=== PATIENT | male | born 1950 | race African-American/Black ===

== ENCOUNTER 2016-12-22 00:02 | Emergency (ER) | payer OTHER ==
[2016-12-22 00:12] VITALS: BP 150/100; PULSE 83; TEMP 98.1; BMI 34.4
[2016-12-22 01:57] LABS: BASOPHIL 1.2 % (0-2.0); EOSINOPHIL 5.6 % (0-4.5); MCH 30.6 pg (25.7-33.7); MCHC 34.5 g/dl (32.0-35.9); MEAN CELL VOLUME 88.7 fl (80-96); MEAN PLT VOLUME 9.8 fl (7.5-11.1); NEUTROPHILS 52.9 % (42.8-82.8); PLATELET COUNT 231 K/MM3 (134-434); RDW 13.5 % (11.9-15.9); WHITE BLOOD COUNT 5.6 K/mm3 (4.0-10.0)
[2016-12-22 02:17] LABS: ALBUMIN 3.5 g/dl (3.4-5.0); BILIRUBIN,TOTAL 0.6 mg/dL (0.2-1.0); CALCIUM 8.7 mg/dL (8.5-10.1); CREATININE 1.4 mg/dL (0.7-1.3); TOT PROT 7.2 g/dl (6.4-8.2)
--- NOTE | 2016-12-22 02:17 | PDOC ---
History of Present Illness - General History Source: Patient, Spouse, Old Records Exam Limitations: No Limitations <Leanna Al - Last Filed: 12/22/16 02:37> <Jasiel De La Paz - Last Filed: 12/22/16 03:12> - General Chief Complaint: Congestive Heart Failure Stated Complaint: DIFFICULTY BREATHING Time Seen by Provider: 12/22/16 00:32 - History of Present Illness Initial Comments: 12/22/16 02:25 The patient is a 66 year old male, with a significant past medical history of HTN, diabetes and sleep apnea (noncompliant with BiPAP), who presents to the emergency department with shortness of breath for the past 2 days and a productive cough for the past 3-4 weeks. The patient states that his shortness of breath is worst when he is lying down and that it is alleviated when he sits straight up. He additionally reports that he has shortness of breath on exertion , stating that he is out of breath after walking short distances. He reports that this is a chronic issue that has been going on for a couple of months, but worsening in the past couple of days. His is with him in the ED. The patient denies fever, chills or any chest pain. Allergies: None reported. Past Surgical History: None reported. Social History: Former smoker (quit approximately 30 years ago). Denies alcohol or drug use. PCP: Dr. Fraire (Leanna Al) Past History <Leanna Al - Last Filed: 12/22/16 02:37> - Past Medical History Diabetes: Yes HTN: Yes - Immunization History Immunization Up to Date: Yes - Psycho/Social/Smoking Cessation Hx Anxiety: No Suicidal Ideation: No Smoking History: Former smoker Have you smoked in the past 12 months: No If you are a former smoker, when did you quit?: 30 years Information on smoking cessation initiated: No Hx Alcohol Use: No Drug/Substance Use Hx: No Substance Use Type: None <Jasiel De La Paz - Last Filed: 12/22/16 03:12> - Past Medical History Allergies/Adverse Reactions: Allergies Allergy/AdvReac Type Severity Reaction Status Date / Time No Known Allergies Allergy Verified 12/22/16 00:07 Home Medications: Ambulatory Orders Aspirin [ASA -] 325 mg PO DAILY 03/27/15 Carvedilol 25 mg PO HS 03/27/15 Carvedilol 50 mg PO AM 03/27/15 Losartan Potassium 100 mg PO DAILY 03/27/15 Pantoprazole Sodium [Protonix] 40 mg PO DAILY 03/27/15 Cholecalciferol (Vitamin D3) [Vitamin D] 1,000 unit PO DAILY 11/29/15 Albuterol Sulfate Inhaler - [Ventolin HFA Inhaler -] 1 puff IH Q6H #1 inhaler Review of Systems - Review of Systems Able to Perform ROS?: Yes <Leanna Al - Last Filed: 12/22/16 02:37> <Jasiel De La Paz - Last Filed: 12/22/16 03:12> - Review of Systems Comments:: 12/22/16 02:25 CONSTITUTIONAL: No fever, no chills, no fatigue EYES: No visual changes ENT: No ear pain, no sore throat CARDIOVASCULAR: No chest pain, no palpitations RESPIRATORY:+Cough, SOB GI: No abdominal pain, no nausea, no vomiting, no constipation, no diarrhea GENITOURINARY: No dysuria, no frequency, no hematuria MUSKULOSKELETAL: No back pain, no joint pain, no myalgias SKIN: No rash NEURO: No headache (Leanna Al) *Physical Exam <Leanna Al - Last Filed: 12/22/16 02:37> <Jasiel De La Paz - Last Filed: 12/22/16 03:12> - Vital Signs Last Vital Signs Temp Pulse Resp BP Pulse Ox 98.1 F 83 22 150/100 99 12/22/16 00:10 12/22/16 00:10 12/22/16 00:10 12/22/16 00:10 12/22/16 00:10 - Physical Exam Comments: 12/22/16 02:37 CONSTITUTIONAL: Morbidly obese. Well-appearing; well-nourished; in no apparent distress. HEAD: Normocephalic; atraumatic. EYES: PERRL; EOM intact. ENMT: External appears normal; normal oropharynx. NECK: Supple; non-tender; no cervical lymphadenopathy. CARD: Normal S1, S2; no murmurs, rubs, or gallops. RESP: Normal chest excursion with respiration; breath sounds clear and equal bilaterally; no wheezes, rhonchi, or rales. ABD: Soft, non-distended; non-tender; no palpable organomegaly, no palpable hernias. EXT: Normal ROM in all four extremities; non-tender to palpation; distal pulses intact. SKIN: Warm, dry, no rash. NEURO: No focal neurological deficiencies. (Leanna Al) Heart Score/ECG Review #1 ECG reviewed & interpreted by me at: 01:22 (Vent Rate: 81 bpm. Normal sinus rhythm. Biatrial enlargement. Left axis deviation. Pulmonary disease pattern. Incomplete right bundle branch block. T wave abnormality, consider lateral ischemia. Prolonged QT.) <Leanna Al - Last Filed: 12/22/16 02:37> ED Treatment Course - LABORATORY CBC & Chemistry Diagram: 12/22/16 01:30 12/22/16 01:30 <Leanna Al - Last Filed: 12/22/16 02:37> - LABORATORY CBC & Chemistry Diagram: 12/22/16 01:30 12/22/16 01:30 <Jasiel De La Paz - Last Filed: 12/22/16 03:12> - ADDITIONAL ORDERS Additional order review: Laboratory Results 12/22/16 01:30 Sodium 138 Potassium 4.1 Chloride 102 Carbon Dioxide 25 Anion Gap 11 BUN 16 Creatinine 1.4 H Creat Clearance w eGFR 50.70 Random Glucose 176 H Calcium 8.7 Total Bilirubin 0.6 AST 25 ALT 55 Alkaline Phosphatase 144 H Creatine Kinase 125 Troponin I 0.04 Total Protein 7.2 Albumin 3.5 12/22/16 01:30 RBC 5.09 MCV 88.7 MCHC 34.5 RDW 13.5 MPV 9.8 Neutrophils % 52.9 D Lymphocytes % 28.4 D Monocytes % 11.9 H Eosinophils % 5.6 H D Basophils % 1.2 - RADIOLOGY Radiology Studies Ordered: Category Date Time Status CHEST PA & LAT [RAD] Stat Radiology 12/22/16 01:01 Taken - Medications Given in the ED: ED Medications Discontinued Medications Generic Name Dose Route Start Last Admin Trade Name Freq PRN Reason Stop Dose Admin Carvedilol 25 mg 12/22/16 02:37 12/22/16 02:46 Coreg - PO 12/22/16 02:38 25 mg ONCE ONE Administration Medical Decision Making <Leanna Al - Last Filed: 12/22/16 02:37> <Jasiel De La Paz - Last Filed: 12/22/16 03:12> - Medical Decision Making 12/22/16 03:07 Patient is a 66-year-old male with poorly controlled hypertension, sleep apnea ( noncompliant with his CPap therapy) complains of shortness of breath when supine , improving when propped up on 1-2 pillows which has been going on for the past several months to a year, mild productive cough, dyspnea with moderate exertion that has gone on for the past 2 years. Patient denies chest pain/lower extremity edema/fever/chills. In the ER, patient is awake and alert, hypertensive. Chest x-ray reveals no evidence of cardiomegaly/infiltrate/ effusion. EKG reveals LVH, bilateral atrial enlargement, left axis deviation incomplete RBBB. There is diffuse T-wave inversions in 1, aVL, V2, V5, V6 likely related to long-standing LVH. I do not suspect ACS at this time. I believe patient's symptoms are chronic in nature and require follow-up with PMD , cardiology as well as pulmonology (Jasiel De La Paz) *DC/Admit/Observation/Transfer <Leanna Al - Last Filed: 12/22/16 02:37> <Jasiel De La Paz - Last Filed: 12/22/16 03:12> Diagnosis at time of Disposition: Dyspnea Qualifiers: Dyspnea type: unspecified Qualified Code(s): R06.00 - Dyspnea, unspecified - Discharge Dispostion Disposition: HOME Condition at time of disposition: Stable - Referrals Referrals: Tristan Fraire [Primary Care Provider] - - Patient Instructions Printed Discharge Instructions: DI for Shortness of Breath - Attestations Scribe Attestion: 12/22/16 02:23 Documentation prepared by Leanna Al, acting as medical historian for Jasiel De La Paz MD, (Leanna Al) Physician Attestion: 12/22/16 03:06 The documentation was prepared by the scribe under my direct supervision. I have reviewed the documentation which correctly represents the findings, medical decision-making and critical action taken by me. (Jasiel De La Paz)
[2016-12-22 02:20] LABS: TROPONIN I 0.04 ng/ml (0.00-0.05)
[2016-12-22] MEDS ORDERED: CARVEDILOL 25 MG TABLET (FP) PO ONE (02:37)
[2016-12-22] MEDS ORDERED: CARVEDILOL 12.5 MG TABLET (FP) ONE (02:45)
[2016-12-22 04:13] LABS: INR 1.02 (0.82-1.09); PROTHROMBIN TIME (PATIENT) 11.2 SEC (9.98-11.88)
--- NOTE | 2016-12-22 09:58 | EKG ---
Test Reason : Blood Pressure : / mmHG Vent. Rate : 081 BPM Atrial Rate : 081 BPM P-R Int : 166 ms QRS Dur : 106 ms QT Int : 412 ms P-R-T Axes : 068 -41 139 degrees QTc Int : 478 ms NORMAL SINUS RHYTHM BIATRIAL ENLARGEMENT LEFT AXIS DEVIATION PULMONARY DISEASE PATTERN INCOMPLETE RIGHT BUNDLE BRANCH BLOCK T WAVE ABNORMALITY, CONSIDER LATERAL ISCHEMIA PROLONGED QT ABNORMAL ECG NO PREVIOUS ECGS AVAILABLE Confirmed by TIFFANIE FUNES, PA ([id number]) on 12/22/2016 9:58:46 AM Referred By: Confirmed By:PA MORENO MD
== END 2016-12-22 03:47 | disposition home or self-care (01) ==
LOC: JER 00:02
DX: R06.00 Dyspnea, unspecified (principal); I10 Essential (primary) hypertension; G47.30 Sleep apnea, unspecified; E11.9 Type 2 diabetes mellitus without complications; Z87.891 Personal history of nicotine dependence; Z79.82 Long term (current) use of aspirin
CPT/HCPCS: 36415; 71020-TC; 80053; 82550; 84484; 85025; 85610; 93005; 93010; 99281-25

== ENCOUNTER 2018-11-05 07:08 | Emergency (ER) | payer OTHER ==
[2018-11-05 07:19] VITALS: BMI 33.5
[2018-11-05] MEDS ORDERED: CYCLOBENZAPRINE HCL 10 MG TABLET (FP) ONE (07:48)
[2018-11-05] MEDS ORDERED: KETOROLAC TROMETHAMINE 30 MG/1 ML VIAL IVPUSH ONE (07:48)
[2018-11-05] MEDS ORDERED: KETOROLAC TROMETHAMINE 30 MG/1 ML VIAL ONE (07:48)
[2018-11-05] MEDS ORDERED: CYCLOBENZAPRINE HCL 10 MG TABLET (FP) PO ONE (07:48)
--- NOTE | 2018-11-05 09:13 | PDOC ---
History of Present Illness - General Chief Complaint: Pain, Acute Stated Complaint: L SIDED LBP Time Seen by Provider: 11/05/18 07:31 History Source: Patient Exam Limitations: No Limitations - History of Present Illness Initial Comments: 11/05/18 09:00 68-year-old male with history of hypertension presents to ED with 1 week of left flank and lower back and left buttock pain worsens with movement. Patient is been using topical BenGay with no improvement. Patient states about 2 months ago symptoms also occurred after strenuous activity. Patient states approximately 8 days ago was mopping the apartment and woke up with the pain the following day. Patient denies any chest pain, shortness of breath, cough, fever, chills, change in urine pattern, change in bowel pattern, rash, bowel distention, recent injury, or recent travel. Patient states to take his blood pressure medication this morning she denies any lower extremity edema or shortness of breath Timing/Duration: 1 week, constant Severity: mild, moderate Associated Symptoms: reports: denies symptoms Past History - Travel Traveled outside of the country in the last 30 days: No - Past Medical History Allergies/Adverse Reactions: Allergies Allergy/AdvReac Type Severity Reaction Status Date / Time No Known Allergies Allergy Verified 12/22/16 00:07 Home Medications: Ambulatory Orders Carvedilol 25 mg PO HS 03/27/15 Carvedilol 50 mg PO AM 03/27/15 Losartan Potassium 100 mg PO DAILY 03/27/15 Pantoprazole Sodium [Protonix] 40 mg PO DAILY 03/27/15 Albuterol Sulfate Inhaler - [Ventolin HFA Inhaler -] 1 puff IH Q6H #1 inhaler Aspirin [ASA -] 81 mg PO DAILY 11/05/18 COPD: No CHF: No Diabetes: Yes HTN: Yes - Surgical History Cardiac Surgery: No Neurologic Surgery: No - Immunization History Immunization Up to Date: Yes - Suicide/Smoking/Psychosocial Hx Smoking History: Never smoked Have you smoked in the past 12 months: No If you are a former smoker, when did you quit?: 30 years Information on smoking cessation initiated: No Hx Alcohol Use: No Drug/Substance Use Hx: No Substance Use Type: None Patient Lives Alone: No Lives with/in: spouse/SO Review of Systems - Review of Systems Able to Perform ROS?: Yes Constitutional: No: Symptoms Reported HEENTM: No: Symptoms Reported Respiratory: No: Symptoms reported Cardiac (ROS): No: Symptoms Reported : Yes: Flank Pain Musculoskeletal: Yes: Back Pain (left low back, left buttock) Integumentary: No: Symptoms Reported Neurological: No: Symptoms reported Endocrine: No: Symptoms Reported Hematologic/Lymphatic: No: Symptoms Reported *Physical Exam - Vital Signs Last Vital Signs Temp Pulse Resp BP Pulse Ox 97.6 F 77 16 192/104 H 99 11/05/18 07:14 11/05/18 07:14 11/05/18 07:14 11/05/18 07:14 11/05/18 07:14 - Physical Exam General Appearance: Yes: Nourished, Appropriately Dressed. No: Apparent Distress HEENT: negative: Pale Conjunctivae Neck: positive: Supple Respiratory/Chest: positive: Lungs Clear, Normal Breath Sounds. negative: Respiratory Distress, Accessory Muscle Use Cardiovascular: positive: Regular Rhythm, Regular Rate. negative: Murmur Gastrointestinal/Abdominal: positive: Normal Bowel Sounds, Soft. negative: Guarding, Rebound, Tenderness Musculoskeletal: negative: CVA Tenderness Extremity: positive: Normal Capillary Refill. negative: Pedal Edema Integumentary: positive: Normal Color, Warm, Moist Neurologic: positive: Normal Mood/Affect, Motor Strength 5/5 (ambulatory) Moderate Sedation - Procedure Monitoring Vital Signs: Procedure Monitoring Vital Signs Temperature 97.6 F 11/05/18 07:14 Pulse Rate 77 11/05/18 07:14 Respiratory Rate 16 11/05/18 07:14 Blood Pressure 192/104 H 11/05/18 07:14 O2 Sat by Pulse Oximetry (%) 99 11/05/18 07:14 ED Treatment Course - LABORATORY CBC & Chemistry Diagram: 11/05/18 08:04 11/05/18 07:46 - Medications Given in the ED: ED Medications Discontinued Medications Generic Name Dose Route Start Last Admin Trade Name Freq PRN Reason Stop Dose Admin Cyclobenzaprine HCl 5 mg 11/05/18 07:48 11/05/18 08:03 Flexeril - PO 11/05/18 07:49 5 mg ONCE ONE Administration Ketorolac Tromethamine 30 mg 11/05/18 07:48 11/05/18 08:03 Toradol Injection - IVPUSH 11/05/18 07:49 30 mg ONCE ONE Administration Medical Decision Making - Medical Decision Making 11/05/18 09:02 CC:Flank left back pain worsened with movement for the past week. Exam:+ left flank /left sciatic tenderness. No abdominal tenderness no reproducible chest pain Plan: Cardiac workup secondary to elevated blood pressure and left flank pain. Patient also ordered for urine urine culture chest x-ray Toradol and Flexeril as this is likely muscle skeletal/muscle spasm/sciatica. 11/05/18 10:24 Laboratory Tests 11/05/18 11/05/18 11/05/18 07:46 08:04 08:04 WBC 5.2 Hgb 16.2 Hct 48.6 MPV 9.3 Absolute Neuts (auto) 3.2 Neutrophils % 60.8 Eosinophils % 5.0 H Sodium 138 Potassium 4.3 Chloride 103 Carbon Dioxide 27 Anion Gap 9 BUN 22 H Creatinine 1.6 H Random Glucose 177 H Calcium 8.7 Total Bilirubin 0.4 AST 27 ALT 68 H Alkaline Phosphatase 157 H Troponin I 0.02 Urine Protein 2+ H Urine Glucose (UA) 3+ H Urine Nitrite Negative Ur Leukocyte Esterase Negative Urine WBC (Auto) <1 Urine RBC (Auto) 2 Patient states feeling better after receiving the medication. Patient is able Toradol for with his cane without complaints. 11/05/18 10:27 Chest x-ray is essentially negative. Patient ate breakfast tray and will be discharged as soon as blood pressures repeated. 11/05/18 10:45 Patient's repeated blood pressure remains elevated. After discussing with patient and his daily medication routine. It was stated by his that she stopped the Coreg 50 mg at night and patient only took 25 mg of Karrick at around 3 AM this morning. Patient is supposed to get 20 5 in the morning and 50 mg at night. Patient will be given an additional 25 mg and reevaluate blood pressure within an hour. 11/05/18 10:45 Selected Entries 11/05/18 10:36 Blood Pressure 185/115 H [Left Arm] Repeat blood pressure was slightly improved to 177/102. Patient will take his 25 mg tonight and understands the proper dosing of Coreg as prescribed by the primary care doctor. Patient also will be prescribed Tylenol and Flexeril for back pain 11/05/18 11:58 *DC/Admit/Observation/Transfer Diagnosis at time of Disposition: Elevated blood pressure reading, Musculoskeletal back pain - Discharge Dispostion Disposition: HOME Condition at time of disposition: Improved - Referrals Referrals: Tristan Fraire [Primary Care Provider] - - Patient Instructions Printed Discharge Instructions: DI for Back Spasm Additional Instructions: At this time I recommend continue to take your correct dosing of Coreg. May take Flexeril and Tylenol for discomfort. Avoid movements that worsen your discomfort and may apply heating pad to the affected area - Post Discharge Activity
[2018-11-05 09:44] LABS: HEMATOCRIT 48.6 % (35.4-49); HEMOGLOBIN 16.2 GM/dL (11.7-16.9); LYMPH % 25.4 % (8-40); MCH 30.1 pg (25.7-33.7); MCHC 33.3 g/dl (32.0-35.9); MEAN CELL VOLUME 90.2 fl (80-96); MEAN PLT VOLUME 9.3 fl (7.5-11.1); MONO % 7.8 % (3.8-10.2); NEUT % 60.8 % (42.8-82.8); PLATELET COUNT 302 K/MM3 (134-434); RBC 5.39 M/mm3 (4.00-5.60); RDW 13.9 % (11.9-15.9); WHITE BLOOD COUNT 5.2 K/mm3 (4.0-10.0)
[2018-11-05 09:49] LABS: URINE APPEARANCE CLEAR; URINE BILIRUBIN NEGATIVE (<2.0 mg/dL); URINE COLOR YELLOW; URINE GLUCOSE (UA) 3+ (NEGATIVE); URINE KETONE NEGATIVE (NEGATIVE); URINE LEUK ESTERASE NEGATIVE (NEGATIVE); URINE NITRITE NEGATIVE (NEGATIVE); URINE PROTEIN 2+ (NEGATIVE); URINE UROBILINOGEN NEGATIVE mg/dL (0.2-1.0)
[2018-11-05 10:15] LABS: ALBUMIN 3.8 g/dl (3.4-5.0); ALK PHOS 157 U/L (45-117); ANION GAP 9 MMOL/L (8-16); BILIRUBIN,TOTAL 0.4 mg/dL (0.2-1); BLOOD UREA NITROGEN 22 mg/dL (7-18); CALCIUM 8.7 mg/dL (8.5-10.1); CHLORIDE 103 mmol/L (98-107); CO2 27 mmol/L (21-32); CREATININE 1.6 mg/dL (0.55-1.3); GLUCOSE,RANDOM 177 mg/dL (74-106); POTASSIUM 4.3 mmol/L (3.5-5.1); SGOT/AST 27 U/L (15-37); SGPT/ALT 68 U/L (13-61); SODIUM 138 mmol/L (136-145); TOT PROT 7.6 g/dl (6.4-8.2)
[2018-11-05 10:37] VITALS: BP 185/115; PULSE 74; TEMP 97.4
[2018-11-05] MEDS ORDERED: CARVEDILOL 25 MG TABLET (FP) PO ONE (10:44)
[2018-11-05] MEDS ORDERED: CARVEDILOL 12.5 MG TABLET (FP) ONE (10:44)
--- NOTE | 2018-11-05 12:56 | EKG ---
Test Reason : Blood Pressure : / mmHG Vent. Rate : 074 BPM Atrial Rate : 074 BPM P-R Int : 162 ms QRS Dur : 104 ms QT Int : 392 ms P-R-T Axes : 054 -43 147 degrees QTc Int : 435 ms NORMAL SINUS RHYTHM LEFT AXIS DEVIATION LEFT VENTRICULAR HYPERTROPHY WITH REPOLARIZATION ABNORMALITY ABNORMAL ECG WHEN COMPARED WITH ECG OF 22-DEC-2016 01:22, INCOMPLETE RIGHT BUNDLE BRANCH BLOCK IS NO LONGER PRESENT Confirmed by Enoc Rosenthal ([id number]) on 11/05/2018 12:55:47 PM Referred By: Confirmed By:Enoc Rosenthal
== END 2018-11-05 12:10 | disposition home or self-care (01) ==
LOC: JER 07:08
PROC: 3E0333Z Introduction of Anti-inflammatory into Peripheral Vein, Percutaneous Approach (ICD-10-PCS; principal; 2018-11-05)
DX: I10 Essential (primary) hypertension (principal); E11.9 Type 2 diabetes mellitus without complications; Z87.891 Personal history of nicotine dependence; M54.9 Dorsalgia, unspecified
CPT/HCPCS: 36415; 71045-TC-FY; 80053; 81003; 81015; 82550; 84484; 85025; 87086; 93005; 93010; 96374; 99283-25

== ENCOUNTER 2019-02-26 18:05 | Emergency (ER) | payer OTHER ==
[2019-02-26] MEDS ORDERED: ASPIRIN 81 MG CHEWABLE TABLETS PO ONE (18:21)
[2019-02-26 18:22] VITALS: TEMP 98.6; BMI 33.5
--- NOTE | 2019-02-26 18:22 | PDOC ---
Rapid Medical Evaluation Chief Complaint: Cold Symptoms Time Seen by Provider: 02/26/19 18:20 Medical Evaluation: Allergies Allergy/AdvReac Type Severity Reaction Status Date / Time No Known Allergies Allergy Verified 02/26/19 18:19 02/26/19 18:20 I have performed a brief in-person evaluation of this patient. The patient presents with a chief complaint of: SOB 4 days Pertinent physical exam findings: NAD I have ordered the following: CXR cardiac work up The patient will proceed to the ED for further evaluation. 02/26/19 18:21 Discharge Disposition - Diagnosis Cough - Referrals - Patient Instructions - Post Discharge Activity
[2019-02-26] MEDS ORDERED: ASPIRIN 81 MG CHEWABLE TABLETS ONE (19:05)
--- NOTE | 2019-02-26 19:10 | PDOC ---
History of Present Illness - General Chief Complaint: Cold Symptoms Stated Complaint: FLU Time Seen by Provider: 02/26/19 18:20 History Source: Patient Exam Limitations: No Limitations - History of Present Illness Initial Comments: 02/26/19 19:05 Pt is a 68yo M with PMH of KS, HTN, HLD, NIDDM presenting to ED for cough and congestion with sob x 3 days. Pt states that he has been having dry and productive coughs for 3 days associated with pain in the chest when he coughs. Does not pay attention to the sputum but thinks it is white. He also has congestion as well, with headache yesterday and sore throat yesterday. Endorses chills. Denies fever, chest pain, abdominal pain, n/v/d, urinary symptoms, neurological symptoms, neck stiffness. Per , there have been many people in the building that have pneumonia and is worried that her may have pneumonia. Has not had the flu shot. PMD: [place] PMH: see hpi PSH: none Meds: atorvastatin, losartan, carvedilol, asa 81, metformin Allergies: nkda Social: occasional alcohol use Past History - Past Medical History Allergies/Adverse Reactions: Allergies Allergy/AdvReac Type Severity Reaction Status Date / Time No Known Allergies Allergy Verified 02/26/19 18:19 Home Medications: Ambulatory Orders Carvedilol 25 mg PO BID 03/27/15 Losartan Potassium 100 mg PO DAILY 03/27/15 Pantoprazole Sodium [Protonix] 40 mg PO DAILY 03/27/15 Albuterol Sulfate Inhaler - [Ventolin HFA Inhaler -] 1 puff IH Q6H #1 inhaler Acetaminophen 650 mg PO TID PRN #30 tablet 11/05/18 Aspirin [ASA -] 81 mg PO DAILY 11/05/18 Albuterol Sulfate Inhaler - [Ventolin HFA Inhaler -] 1 - 2 inh PO Q6H #1 inhaler 02/26/19 Azithromycin [Zithromax 250mg Tablets -] 250 mg PO UTDICT #6 tab 02/26/19 COPD: No CHF: No Diabetes: Yes HTN: Yes - Surgical History Cardiac Surgery: No Neurologic Surgery: No - Immunization History Immunization Up to Date: Yes - Suicide/Smoking/Psychosocial Hx Smoking History: Never smoked Have you smoked in the past 12 months: No If you are a former smoker, when did you quit?: 30 years Hx Alcohol Use: No Drug/Substance Use Hx: No Substance Use Type: None Review of Systems - Review of Systems Constitutional: Yes: Chills. No: Fever HEENTM: No: Symptoms Reported Respiratory: Yes: Cough, Shortness of Breath Cardiac (ROS): No: Chest Pain, Lightheadedness, Palpitations, Syncope ABD/GI: No: Symptoms Reported : No: Symptoms Reported Musculoskeletal: No: Symptoms Reported Integumentary: No: Symptoms Reported Neurological: No: Symptoms reported *Physical Exam - Vital Signs Last Vital Signs Temp Pulse Resp BP Pulse Ox 98.6 F 80 16 180/87 H 98 02/26/19 18:19 02/26/19 18:19 02/26/19 18:19 02/26/19 18:19 02/26/19 18:19 - Physical Exam General Appearance: Yes: Nourished, Appropriately Dressed. No: Apparent Distress HEENT: positive: EOMI, JESSICA, Normal ENT Inspection Neck: positive: Trachea midline, Supple. negative: Tender, Lymphadenopathy (R) , Lymphadenopathy (L) Respiratory/Chest: positive: Normal Breath Sounds, Wheezing (lower lung killian) . negative: Crackles, Rales Cardiovascular: positive: Regular Rhythm, Regular Rate. negative: S1, S2, Edema , JVD, Murmur Vascular Pulses: Carotid (R): 2+, Carotid (L): 2+, Dorsalis-Pedis (R): 2+, Doralis-Pedis (L): 2+ Gastrointestinal/Abdominal: positive: Normal Bowel Sounds, Soft. negative: Tender Musculoskeletal: negative: CVA Tenderness Extremity: positive: Normal Capillary Refill. negative: Pedal Edema, Swelling, Calf Tenderness Integumentary: positive: Normal Color, Dry, Warm Neurologic: positive: clinical rehabilitation specialist II-XII NML intact, Fully Oriented, Alert, Normal Mood/ Affect, Normal Response, Motor Strength 03/30 ED Treatment Course - LABORATORY CBC & Chemistry Diagram: 02/26/19 18:43 02/26/19 18:43 Medical Decision Making - Medical Decision Making 02/26/19 19:09 Pt is a 68yo M with PMH of KS, HTN, HLD, NIDDM presenting to ED for cough and congestion with sob x 3 days. Pt states that he has been having dry and productive coughs for 3 days associated with pain in the chest when he coughs. Does not pay attention to the sputum but thinks it is white. He also has congestion as well, with headache yesterday and sore throat yesterday. Endorses chills. Denies fever, chest pain, abdominal pain, n/v/d, urinary symptoms, neurological symptoms, neck stiffness. Per , there have been many people in the building that have pneumonia and is worried that her may have pneumonia. Has not had the flu shot. Vitals: slightly hypertensive PE: lower lobe wheezing Ddx includes but not limited to pna, bronchitis, viral uri, influenza -labs -ekg, cxr no white count. labs show elevated Cr (baseline) elevated LFTs. No history of liver disease. will order ruq u/s CXR: no infiltrates or consolidations EKG: nsr. high voltage QRS in V3, V4. TWI in I, aVL, V4-V6. (similar to prior) . -duoneb Sono: fatty liver and gall stones. no signs of acute cholecystitis. History of DM, will give rx for zpack and albuterol. bp high, kofi give meds and recheck repeat bp 180s systolic. will dc home. given return precautions and f/u for GI and surgery 02/27/19 00:34 *DC/Admit/Observation/Transfer Diagnosis at time of Disposition: Cough, Hepatic steatosis Cholelithiasis Qualifiers: Cholelithiasis location: gallbladder Cholecystitis presence: without cholecystitis Biliary obstruction: without biliary obstruction Qualified Code(s) : K80.20 - Calculus of gallbladder without cholecystitis without obstruction - Discharge Dispostion Disposition: HOME Condition at time of disposition: Good Decision to Admit order: No - Prescriptions Prescriptions: Albuterol Sulfate Inhaler - [Ventolin HFA Inhaler -] 1 - 2 inh PO Q6H #1 inhaler Azithromycin [Zithromax 250mg Tablets -] 250 mg PO UTDICT #6 tab - Referrals Referrals: Tristan Fraire [Primary Care Provider] - Bryan Hurlye MD [Staff Physician] - Aaron Chisholm DO [Staff Physician] - - Patient Instructions Printed Discharge Instructions: DI for Gallstones, DI for Viral Upper Respiratory Infection -- Adult, DI for Nonalcoholic Fatty Liver Disease Additional Instructions: You were seen in the emergency room today for cough and congestion. The xray is normal. This is most likely viral. Your blood tests show elevated liver enzymes and the ultrasound shows a fatty liver and stones in your gallbladder. There is no sign of infection or obstruction from the stone now but I recommend seeing a GI doctor and a surgeon for elective removal of the gallbladder. Please schedule an appointment with Dr. Chisholm sometime this week and also see your primary care doctor. A prescription for Zpack and inhaler was sent to your pharmacy. Take as directed. Come back to the emergency room if breathing gets worse, you have abdominal pain , you develop fever, or if any new concerning symptom develops. ' Thank you - Post Discharge Activity
[2019-02-26 19:20] LABS: EOS % 6.7 % (0-4.5); HEMATOCRIT 44.2 % (35.4-49); HEMOGLOBIN 14.9 GM/dL (11.7-16.9); LYMPH % 20.8 % (8-40); MCH 30.4 pg (25.7-33.7); MCHC 33.7 g/dl (32.0-35.9); MEAN PLT VOLUME 8.8 fl (7.5-11.1); MONO % 20.5 % (3.8-10.2); PLATELET COUNT 204 K/MM3 (134-434); RBC 4.91 M/mm3 (4.00-5.60); RDW 13.6 % (11.9-15.9); WHITE BLOOD COUNT 6.4 K/mm3 (4.0-10.0)
[2019-02-26 19:32] LABS: INR 1.02 (0.83-1.09)
[2019-02-26] MEDS ORDERED: ALBUTEROL SO4 2.5/IPRATROPIUM 0.5 INH SOL 3 ML VIAL.NEB. NEB ONE ×2 (19:39→19:41)
--- NOTE | 2019-02-26 19:46 | PDOC ---
Attending Attestation - HPI HPI: 02/26/19 19:55 The patient is a 68 year old male, with a significant PMH of VT, HTN, HLD, NIDDM , who presents to the emergency department for evaluation of 3 days of cough and congestion. The patient endorses pain associated with cough. He notes that there have been several residents in his apartment that have pneumonia. Patient denies receiving flu shot. Allergies: NKA Social history: No reported PCP: Dr. Fraire - Physicial Exam PE: 02/26/19 20:10 GENERAL: Awake, alert, and fully oriented, in no acute distress HEAD: No signs of trauma EYES: PERRLA, EOMI, sclera anicteric, conjunctiva clear ENT: Auricles normal inspection, hearing grossly normal, nares patent, oropharynx clear without exudates. Moist mucosa NECK: Normal ROM, supple, no lymphadenopathy, JVD, or masses LUNGS: Breath sounds equal, clear to auscultation bilaterally. No wheezes, and no crackles HEART: Regular rate and rhythm, normal S1 and S2, no murmurs, rubs or gallops ABDOMEN: Soft, nontender, normoactive bowel sounds. No guarding, no rebound. No masses EXTREMITIES: Normal range of motion, no edema. No clubbing or cyanosis. No cords, erythema, or tenderness NEUROLOGICAL: Cranial nerves II through XII grossly intact. Normal speech. SKIN: Warm, Dry, normal turgor, no rashes or lesions noted. <Vonnie Tom - Last Filed: 02/26/19 20:10> - Resident Resident Name: Minoo Moore - ED Attending Attestation I have performed the following: I have examined & evaluated the patient, The case was reviewed & discussed with the resident, I agree w/resident's findings & plan, Exceptions are as noted - Medical Decision Making 02/26/19 19:43 I, Dr. Samantha Taylor, DO, attest that this document has been prepared under my direction and personally reviewed by me in its entirety. I further attest, that it accurately reflects all work, treatment, procedures and medical decision -making performed by me. 02/26/19 19:58 a/p: 68yo male with cough x 3 days -pt with subjective fever yesterday -nonproductive cough -cp only when coughing -sob only when coughing -no symptoms at this time -pt had wheezing upon arrival, but after a nebulizer now clear -no cp now -will send labs, xray, ekg 02/26/19 20:04 elevated lft on labs discussed with the patient who states he did not know he had elevated lft- will obtain ultrasound 02/26/19 20:58 pt without abd pain no n/v/d ultrasound shows hepatic steatosis and gall stones, pt denies pain -will give albuterol and azithromycin for cough -will give GI follow up and surgery for further eval of the elevated lft pt is stable for dc to home <Samantha Taylor - Last Filed: 02/26/19 20:58> Heart Score/ECG Review - ECG Intrepretation Comment:: 02/26/19 19:43 sinus at 77, nl axis, nl interval, q waves septally which are age indeterminate , t wave inversions I/avl, lvh, t wave inversions v4-6 <Samantha Taylor - Last Filed: 02/26/19 20:58> Attestations - Attestations 02/26/19 19:55 Documentation prepared by Vonnie Tom, acting as medical sociologist for Samantha Taylor DO. <Vonnie Tom - Last Filed: 02/26/19 20:10>
[2019-02-26 19:47] LABS: ALBUMIN 3.4 g/dl (3.4-5.0); ALK PHOS 131 U/L (45-117); ANION GAP 9 MMOL/L (8-16); BILIRUBIN,TOTAL 0.3 mg/dL (0.2-1); BLOOD UREA NITROGEN 19 mg/dL (7-18); CALCIUM 8.6 mg/dL (8.5-10.1); CHLORIDE 104 mmol/L (98-107); CO2 24 mmol/L (21-32); CREATININE 1.6 mg/dL (0.55-1.3); GLUCOSE,RANDOM 146 mg/dL (74-106); SGOT/AST 45 U/L (15-37); SGPT/ALT 80 U/L (13-61); SODIUM 137 mmol/L (136-145); TOT PROT 6.9 g/dl (6.4-8.2)
[2019-02-26] MEDS ORDERED: CARVEDILOL 25 MG TABLET (FP) PO ONE (21:10)
[2019-02-26] MEDS ORDERED: LOSARTAN POTASSIUM 50 MG TABLET (FP) PO ONE (21:10)
[2019-02-26 21:11] VITALS: PULSE 95
[2019-02-26] MEDS ORDERED: LOSARTAN POTASSIUM 50 MG TABLET (FP) ONE (21:12)
[2019-02-26] MEDS ORDERED: CARVEDILOL 12.5 MG TABLET (FP) ONE (21:12)
[2019-02-26 21:21] LABS: PLATELET ESTIMATE ADEQUATE
[2019-02-26 21:48] VITALS: BP 182/86
--- NOTE | 2019-02-27 11:47 | EKG ---
Test Reason : Blood Pressure : / mmHG Vent. Rate : 077 BPM Atrial Rate : 077 BPM P-R Int : 180 ms QRS Dur : 098 ms QT Int : 376 ms P-R-T Axes : 064 -39 140 degrees QTc Int : 425 ms NORMAL SINUS RHYTHM POSSIBLE LEFT ATRIAL ENLARGEMENT LEFT AXIS DEVIATION INCOMPLETE RIGHT BUNDLE BRANCH BLOCK SEPTAL INFARCT , AGE UNDETERMINED ABNORMAL ECG WHEN COMPARED WITH ECG OF 05-NOV-2018 07:54, INCOMPLETE RIGHT BUNDLE BRANCH BLOCK IS NOW PRESENT Confirmed by SRINATH TAMEZ MD ([id number]) on 02/27/2019 11:47:34 AM Referred By: Confirmed By:SRINATH TAMEZ MD
== END 2019-02-26 21:47 | disposition home or self-care (01) ==
LOC: JER 18:05
PROC: 3E0F7GC Introduction of Other Therapeutic Substance into Respiratory Tract, Via Natural or Artificial Opening (ICD-10-PCS; principal; 2019-02-26)
DX: K76.0 Fatty (change of) liver, not elsewhere classified (principal); R05 Cough; K80.20 Calculus of gallbladder without cholecystitis without obstruction; Z87.891 Personal history of nicotine dependence; E11.9 Type 2 diabetes mellitus without complications; I10 Essential (primary) hypertension; E78.5 Hyperlipidemia, unspecified; I25.2 Old myocardial infarction
CPT/HCPCS: 36415; 71046-TC-FY; 76705-TC; 80053; 82550; 82553; 83735; 84484; 85025; 85610; 93005; 93010; 99282-25

== ENCOUNTER 2019-05-02 03:28 | Observation (INO) | payer OTHER ==
--- NOTE | 2019-05-02 03:38 | PDOC ---
History of Present Illness - General Stated Complaint: PAIN Time Seen by Provider: 05/02/19 03:38 History Source: Patient Exam Limitations: No Limitations - History of Present Illness Initial Comments: 05/02/19 03:51 68 year old male with PMH HTN, HLD, prior nicotine use, GERD, NIDDM, [place], fatty liver presented to ED for chest pain x1.5 hours. Pt reported his pain is located to his bilateral chest wall at the costal margins anteriorly, intermittent, pressure like, non-radiating, aggravated by movement, alleviated by rest. Pt reported he has not taken his Losartan 100 mg PO daily or Amlodipine 5 mg PO daily in several days because his car is in the shop and he has no means of transportation to order picker his prescriptions. Allergies: NKDA Past History - Past Medical History Allergies/Adverse Reactions: Allergies Allergy/AdvReac Type Severity Reaction Status Date / Time No Known Allergies Allergy Verified 05/02/19 03:51 Home Medications: Ambulatory Orders Carvedilol 25 mg PO BID 03/27/15 Losartan Potassium 100 mg PO DAILY 03/27/15 Pantoprazole Sodium [Protonix] 40 mg PO DAILY 03/27/15 Aspirin [ASA -] 81 mg PO DAILY 11/05/18 Albuterol Sulfate Inhaler - [Ventolin HFA Inhaler -] 1 - 2 inh PO Q6H #1 inhaler 02/26/19 Amlodipine Besylate 5 mg PO HS 05/02/19 Atorvastatin Ca [Lipitor] 40 mg PO HS tablet 05/02/19 metFORMIN HCL [Metformin HCl] 500 mg PO BID 05/02/19 COPD: No CHF: No Diabetes: Yes HTN: Yes - Surgical History Cardiac Surgery: No Neurologic Surgery: No - Immunization History Immunization Up to Date: Yes - Suicide/Smoking/Psychosocial Hx Smoking History: Never smoked Have you smoked in the past 12 months: No If you are a former smoker, when did you quit?: 30 years Hx Alcohol Use: No Drug/Substance Use Hx: No Substance Use Type: None Review of Systems - Review of Systems Able to Perform ROS?: Yes Comments:: 05/02/19 03:53 General: denied fever, chills, generalized weakness. HEENT: denied sore throat, rhinorrhea, ear pain. Heart: admitted to chest pain. denied palpitations, syncope, diaphoresis. Respiratory: denied shortness of breath, cough, sputum production, hemoptysis. Abdomen: denied abdominal pain, nausea, vomiting, diarrhea, constipation, blood in stool. : denied dysuria, increased urinary frequency, hematuria, urinary incontinence , flank pain. Back: denied back pain. Musculoskeletal: denied joint pain, muscle pain, joint swelling. Neurological: denied headache, dizziness, numbness, tingling, weakness. Skin: denied rash, laceration, abrasion. *Physical Exam - Physical Exam Comments: 05/02/19 03:54 Constitutional: Well-nourished, Well-developed, appearing stated age. HEENT: head is normocephalic, atraumatic. EOMI. PERRLA. Neck: supple. Full ROM. Heart: regular rhythm. no murmurs, rubs or gallops. Lungs: clear to auscultation bilaterally. no crackles, rhonchi or wheezing. no stridor. Abdomen: soft, nontender. normal bowel sounds. no rebound, guarding, masses. Extremities: peripheral pulses intact. no lower extremity edema. Neurological: CN 2-12 grossly intact. moves all four extremities. Psych: awake, alert, oriented x3. follows commands. answers questions appropriately. Heart Score/ECG Review - History History: Slightly suspicious - Electrocardiogram EKG: Non specific repolarization disturbance - Age Age: >/= 65 - Risk Factors Risk Factors Heart Score: Yes Hx Hypercholesterolemia, Yes Hx Hypertension, Yes Hx Diabetes, Yes Hx Obesity Based on the list above the patient has:: >/=3 risk factors or Hx atherosclerotic disease - Troponin Troponin: </= normal limit - Score Heart Score - Total: 5 ED Treatment Course - LABORATORY CBC & Chemistry Diagram: 05/02/19 08:10 05/02/19 08:10 Medical Decision Making - Medical Decision Making 05/02/19 03:54 68 year old male with above PMH presented to ED for chest pain. Initial Vital Signs Temp Pulse Resp BP Pulse Ox 98.3 F 81 14 197/100 H 96 05/02/19 03:49 05/02/19 03:49 05/02/19 03:49 05/02/19 03:49 05/02/19 03:49 Afebrile. No tachycardia. No tachypnea. Hypertensive. No hypoxia on room air. Labs ordered: CBC, CMP, troponin, BNP Imaging ordered: CXR Medications ordered: Losartan 100 mg PO once, Amlodipine 5 mg PO once, ASA 162 mg PO chew EKG performed at 0353: rate 76, regular rhythm, normal intervals, LVH, otherwise no acute ST changes. Similar to prior EKG performed 02/26/19 05/02/19 04:33 CBC WBC 5.7 K/mm3 (4.0-10.0) 05/02/19 04:06 RBC 5.29 M/mm3 (4.00-5.60) 05/02/19 04:06 Hgb 15.9 GM/dL (11.7-16.9) 05/02/19 04:06 Hct 48.1 % (35.4-49) 05/02/19 04:06 MCV 90.9 fl (80-96) 05/02/19 04:06 MCH 30.1 pg (25.7-33.7) 05/02/19 04:06 MCHC 33.1 g/dl (32.0-35.9) 05/02/19 04:06 RDW 13.8 % (11.9-15.9) 05/02/19 04:06 Plt Count 244 K/MM3 (134-434) 05/02/19 04:06 MPV 8.8 fl (7.5-11.1) 05/02/19 04:06 Absolute Neuts (auto) 3.2 K/mm3 (1.5-8.0) 05/02/19 04:06 Neutrophils % 56.3 % (42.8-82.8) 05/02/19 04:06 Lymphocytes % 23.2 % (8-40) 05/02/19 04:06 Monocytes % 14.8 % (3.8-10.2) H 05/02/19 04:06 Eosinophils % 4.5 % (0-4.5) 05/02/19 04:06 Basophils % 1.2 % (0-2.0) 05/02/19 04:06 Nucleated RBC % 0 % (0-0) 05/02/19 04:06 No leukocytosis. No anemia. 05/02/19 04:53 Vital Signs Temperature 98.3 F 05/02/19 03:49 Pulse Rate 76 05/02/19 04:52 Respiratory Rate 16 05/02/19 04:52 Blood Pressure 164/89 05/02/19 04:52 O2 Sat by Pulse Oximetry (%) 98 05/02/19 04:52 No tachycardia. No tachypnea. HTN improving with home BP meds. No hypoxia on room air. 05/02/19 04:57 CMP Sodium 141 mmol/L (136-145) 05/02/19 04:06 Potassium 4.5 mmol/L (3.5-5.1) 05/02/19 04:06 Chloride 107 mmol/L (98-107) 05/02/19 04:06 Carbon Dioxide 30 mmol/L (21-32) 05/02/19 04:06 Anion Gap 5 MMOL/L (8-16) L 05/02/19 04:06 BUN 23 mg/dL (7-18) H 05/02/19 04:06 Creatinine 1.8 mg/dL (0.55-1.3) H 05/02/19 04:06 Est GFR (CKD-EPI)AfAm 43.84 05/02/19 04:06 Est GFR (CKD-EPI)NonAf 37.83 05/02/19 04:06 Random Glucose 185 mg/dL (74-106) H 05/02/19 04:06 Calcium 8.8 mg/dL (8.5-10.1) 05/02/19 04:06 Magnesium 2.3 mg/dL (1.8-2.4) 05/02/19 04:06 Total Bilirubin 0.3 mg/dL (0.2-1) 05/02/19 04:06 AST 22 U/L (15-37) 05/02/19 04:06 ALT 40 U/L (13-61) 05/02/19 04:06 Alkaline Phosphatase 170 U/L (45-117) H 05/02/19 04:06 Troponin I 0.02 ng/ml (0.00-0.05) 05/02/19 04:06 Total Protein 7.4 g/dl (6.4-8.2) 05/02/19 04:06 Albumin 3.6 g/dl (3.4-5.0) 05/02/19 04:06 No electrolyte abnormalities. HILARIO. No transaminitis. Troponin within normal limits. BNP 146 Medications ordered: normal saline bolus 500 cc 05/02/19 05:[address] Palomo, IM resident, about the patient. Pt to be admitted under tele/obs for chest pain under Dr. Siegel's care. Pending admission. 05/02/19 06:53 EKG performed at 0636: rate 65, regular rhythm, left axis, new TWI in I/aVL/V3. Pt reassessed, reported 0/10 chest pain, denied other complaints. Pending repeat troponin. 05/02/19 18:40 Follow up: Repeat troponin testing negative x3. Official CXR report: A single AP view of the chest is been submitted. Since the prior study of 02/26/2019 there may be some new atelectasis and pleural reaction at the right base. The remainder of the study is unchanged. The right upper lobe and left lung are clear. The mediastinum is not widened. Correlation recommended. Reported By: Rashard De La Rosa MD 05/02/19 0655 *DC/Admit/Observation/Transfer Diagnosis at time of Disposition: Chest pain, HILARIO (acute kidney injury) - Discharge Dispostion Disposition: HOME Condition at time of disposition: Improved Decision to Admit order: Yes - Referrals - Patient Instructions - Post Discharge Activity
[2019-05-02] MEDS ORDERED: ASPIRIN 81 MG CHEWABLE TABLETS PO ONE (03:41)
[2019-05-02] MEDS ORDERED: LOSARTAN POTASSIUM 50 MG TABLET (FP) PO ONE (03:51)
[2019-05-02] MEDS ORDERED: amLODIPine BESYLATE 5 MG TABLET (FP) PO ONE (03:51)
[2019-05-02 03:52] VITALS: TEMP 98.3
[2019-05-02] MEDS ORDERED: ASPIRIN 81 MG CHEWABLE TABLETS ONE ×2 (03:56→10:31)
[2019-05-02] MEDS ORDERED: LOSARTAN POTASSIUM 50 MG TABLET (FP) ONE ×2 (03:57→10:32)
[2019-05-02] MEDS ORDERED: amLODIPine BESYLATE 5 MG TABLET (FP) ONE (03:57)
[2019-05-02 04:20] LABS: BASO % 1.2 % (0-2.0); EOS % 4.5 % (0-4.5); HEMATOCRIT 48.1 % (35.4-49); HEMOGLOBIN 15.9 GM/dL (11.7-16.9); LYMPH % 23.2 % (8-40); MCH 30.1 pg (25.7-33.7); MCHC 33.1 g/dl (32.0-35.9); MEAN CELL VOLUME 90.9 fl (80-96); MEAN PLT VOLUME 8.8 fl (7.5-11.1); MONO % 14.8 % (3.8-10.2); NEUT % 56.3 % (42.8-82.8); PLATELET COUNT 244 K/MM3 (134-434); RBC 5.29 M/mm3 (4.00-5.60); RDW 13.8 % (11.9-15.9); WHITE BLOOD COUNT 5.7 K/mm3 (4.0-10.0)
--- NOTE | 2019-05-02 04:22 | PDOC ---
Attending Attestation - Resident Resident Name: Leanna Perrin - ED Attending Attestation I have performed the following: I have examined & evaluated the patient, The case was reviewed & discussed with the resident, I agree w/resident's findings & plan, Exceptions are as noted - HPI HPI: 05/02/19 04:55 68M pmh DM, HTN, HLD, MD, GERD here with chest pain for about an hour. Pt has not been taking his HTN meds due to logistical reasons. - Physicial Exam PE: 05/02/19 04:56 Agree with exam as documented by resident - Medical Decision Making 05/02/19 04:58 CP in context of elevated BP eval acs, symptomatic htn, eval end organ damage f/u cxr, ekg, labs atypical px in HR patient dispo per clinical course 05/02/19 07:21 admit for further evaluation of chest pain
[2019-05-02 04:35] LABS: INR 0.97 (0.83-1.09); PROTHROMBIN TIME (PATIENT) 11.4 SEC (9.7-13.0)
[2019-05-02 04:37] LABS: ACTIVATED PTT 37.4 SECONDS (25.2-36.5)
[2019-05-02 04:48] LABS: ALBUMIN 3.6 g/dl (3.4-5.0); BILIRUBIN,TOTAL 0.3 mg/dL (0.2-1); CALCIUM 8.8 mg/dL (8.5-10.1); CREATININE 1.8 mg/dL (0.55-1.3); MAGNESIUM 2.3 mg/dL (1.8-2.4); POTASSIUM 4.5 mmol/L (3.5-5.1); TOT PROT 7.4 g/dl (6.4-8.2)
[2019-05-02] MEDS ORDERED: SODIUM CHLORIDE 500 ML IV STA (04:56)
--- NOTE | 2019-05-02 05:13 | PN ---
Teaching Attending Note Name of Resident: Tory Palomo ATTENDING PHYSICIAN STATEMENT I saw and evaluated the patient. I reviewed the resident's note and discussed the case with the resident. I agree with the resident's findings and plan as documented. SUBJECTIVE: Patient is a 68 year old man with PMH of HTN, HLD, prior tobacco use, GERD, NIDDM, [place] and fatty liver who presented to ER for chest pain for about 1.5 hours. Patient reported his pain is located to his bilateral chest wall at the costal margins anteriorly, intermittent, pressure like, non-radiating, aggravated by movement, alleviated by rest. He has not taken his Losartan 100 mg PO daily or Amlodipine 5 mg PO daily in several days because his car is in the shop and he has no means of transportation to cotton picker his prescriptions. Denies fever, chills, headache, vomiting, diarrhea, dysuria or hematuria. OBJECTIVE: Alert Vital Signs Period Temp Pulse Resp BP Sys/Oneal Pulse Ox Last 24 Hr 98.3 F 76-81 14-16 164-197/89-100 96-98 HEENT: No Jaundice, eye redness or discharge, PERRLA, EOMI. Normocephalic, atraumatic. External ears are normal and hearing is grossly intact. No nasal discharge. Neck: Supple, nontender. No palpable adenopathy or thyromegaly. No JVD Chest: Good effort. Clear to auscultation and percussion. Heart: Regular. No S3, rub or murmur Abdomen: Not distended, soft, nontender and no HSM. No rebound or guarding. Normal bowel sounds. Ext: Peripheral pulses intact. No leg edema. Skin: Warm and dry. No petechiae, rash or ecchymosis. Neuro: Alert. Oriented x3. CN 2-12 grossly intact. Sensation grossly intact in all four extremities and DTR are symmetric. Psych: Appropriate mood and affect. Good insight. Current Medications Generic Name Dose Route Start Last Admin Trade Name Freq PRN Reason Stop Dose Admin Sodium Chloride 500 mls @ 500 mls/hr 05/02/19 04:56 Normal Saline - IV 05/02/19 05:55 ASDIR STA Abnormal Lab Results 05/02/19 05/02/19 05/02/19 04:06 04:06 04:06 Monocytes % 14.8 H PTT (Actin FS) 37.4 H Anion Gap 5 L BUN 23 H Creatinine 1.8 H Random Glucose 185 H Alkaline Phosphatase 170 H ASSESSMENT AND PLAN: 1. Chest pain - Pain is atypical and likely related to hypertensive emergency. Got amlodipine, losartan and aspirin in the ER and his BP improved. Now painfree. No acute pathology on CXR and EKG is NSR with t-wave inversion in avL , V4-6. Initial troponin is negative. Will admit to telemetry to rule out ACS and get ECHO. Will restart outpatient antihypertensive drugs. Revise regimen to ensure good BP control. Nonpharmacologic measures to control hypertension like weight loss, salt restriction and exercise discussed. 2. Uncontrolled DM Will hold the home diabetes drugs and implement sliding scale insulin regimen. Provide comprehensive diabetes care with patient teaching and counseling about the importance of adherence to prescribed diabetes regimen, euglycemia, eye care and foot care. 3. CKD? - Has risk factors for CKD as wll as proteinuria. Will rule out superimposed dehydration and get kidney sonogram, urine protein/creatinine ratio , CPK, PTH and phosphate. Consult nephrology and avoid nephrotoxic agents such as NSAIDS, aminoglycosides, contrast dyes and certain Alternative medicine products. 4. Obesity Counseled on the risks associated with obesity. Will provide patient all the necessary assistance, counseling and positive reinforcement to facilitate weight loss. Consult registered travel nurse. 5. DVT prophylaxis - Heparin 5000u sq tid. 6. Advance directives - Full code
--- NOTE | 2019-05-02 05:20 | HP ---
Admitting History and Physical - Primary Care Physician PCP: Tristan Fraire - Admission Chief Complaint: Chest pain x1 day History of Present Illness: Pt is a 68 yo M with PMH HTN, HLD,previous tobacco use (over 30 yrs), GERD, NIDDM, [place], fatty liver presenting with chest pain since 9Pm. Pt reports attempting to go to bed when he noticed pressure like 8/10 L sided chest pain that persisted through the night until he arrived in the ED. The pain improved with sitting forward and worse with laying back. There was associated SOB with pt describing that he did not "feel himself". Denied cough, fevers, or syncope. Pt reports blurry vision but no seizures or weakness of limb. Over the past week , pt has been reported to have been off his medications due to transportation issues. Per pt's EMS recorded BP-246/130 in field. In ED BP was noted to be 197/100 He received NS, ASA, then his BP meds Initial trops negative EKG-76bpm, Q waves anterior septal leads, TWI lateral leads, QTC-450 History Source: Patient, Family Member Limitations to Obtaining History: No Limitations - Past Medical History Cardiovascular: Yes: CAD, HTN, Hyperlipdemia, [place] - Smoking History Smoking history: Never smoked Have you smoked in the past 12 months: No If you are a former smoker, when did you quit?: 30 years - Alcohol/Substance Use Hx Alcohol Use: No Home Medications - Allergies Allergies/Adverse Reactions: Allergies Allergy/AdvReac Type Severity Reaction Status Date / Time No Known Allergies Allergy Verified 05/02/19 03:51 - Home Medications Home Medications: Ambulatory Orders Carvedilol 25 mg PO BID 03/27/15 Losartan Potassium 100 mg PO DAILY 03/27/15 Pantoprazole Sodium [Protonix] 40 mg PO DAILY 03/27/15 Aspirin [ASA -] 81 mg PO DAILY 11/05/18 Albuterol Sulfate Inhaler - [Ventolin HFA Inhaler -] 1 - 2 inh PO Q6H #1 inhaler 02/26/19 metFORMIN HCL [Metformin HCl] 500 mg PO BID 05/02/19 Family Disease History - Family Disease History Other Family History: HTN Review of Systems - Review of Systems Constitutional: denies: Chills, Diaphoresis, Fever, Lethargy Eyes: reports: Blurred Vision HENT: denies: Difficult Swallowing, Nasal Congestion Cardiovascular: reports: Chest Pain, Shortness of Breath. denies: Palpitations Respiratory: reports: SOB. denies: Cough Gastrointestinal: denies: Abdominal Pain Genitourinary: denies: Burning, Dysuria, Flank Pain Musculoskeletal: denies: Back Pain Neurological: denies: Change in LOC, Confusion, Dizziness, Numbness, Parasthesia , Pre-Existing Deficit, Unsteady Gait Physical Examination Vital Signs: Vital Signs Temperature 98.3 F 05/02/19 03:49 Pulse Rate 76 05/02/19 04:52 Respiratory Rate 16 05/02/19 04:52 Blood Pressure 164/89 05/02/19 04:52 O2 Sat by Pulse Oximetry (%) 98 05/02/19 04:52 Constitutional: Yes: No Distress Eyes: Yes: Conjunctiva Clear, EOM Intact, Cataracts, PERRL, Sclera Icterus HENT: Yes: Atraumatic Neck: Yes: Supple Cardiovascular: Yes: Regular Rate and Rhythm, S1, S2 Respiratory: Yes: CTA Bilaterally. No: Cough, Rales, Rhonchi Gastrointestinal: Yes: Normal Bowel Sounds, Soft, Abdomen, Obese. No: Tenderness, Epigastrium Renal/: No: CVA Tenderness - Left, CVA Tenderness - Right Musculoskeletal: No: Back Pain Edema: No Peripheral Pulses WNL: Yes Neurological: Yes: Alert, Oriented, Cran Nerves II-XII Intact. No: Aphasia, Confusion, Lethargy, Loss of Sensation, Numbness, Weakness ...Motor Strength: WNL Psychiatric: Yes: Alert, Oriented Labs: CBC, BMP 05/02/19 04:06 05/02/19 04:06 Imaging - Results Chest X-ray: Image Reviewed Assessment/Plan Current Medications Aspirin (Asa -) 81 mg PO DAILY [facility] Carvedilol (Coreg -) 25 mg PO BID [facility] Heparin Sodium (Porcine) (Heparin -) 5,000 unit SQ TID [facility] Non-Formulary Medication (Losartan Potassium [Losartan Potassium]) 100 mg PO DAILY [facility] Pantoprazole Sodium (Protonix -) 40 mg PO DAILY [facility] Ambulatory Orders Carvedilol 25 mg PO BID 03/27/15 Losartan Potassium 100 mg PO DAILY 03/27/15 Pantoprazole Sodium [Protonix] 40 mg PO DAILY 03/27/15 Aspirin [ASA -] 81 mg PO DAILY 11/05/18 Albuterol Sulfate Inhaler - [Ventolin HFA Inhaler -] 1 - 2 inh PO Q6H #1 inhaler 02/26/19 metFORMIN HCL [Metformin HCl] 500 mg PO BID 05/02/19 Pt is a 68 yo M with PMH HTN, HLD,previous tobacco use (over 30 yrs), GERD, NIDDM, [place], fatty liver presenting with chest pain since 9Pm Hypertensive emergency CP, elevated BP Initial trops 0.02, trend EKG- TWI inversions, repeat Tele Card consult Cont home meds CP R/O ACS Echo Repeat trops ekg Cards DM ISS BGM UA Blurred vision- ophth outpt DM education SW HLD Not on meds Statins Lipid profile FEN No standing fluids Monitor lytes, KCl given Diabetic and sodium controlled diet Hep sq Tele obs Visit type - Emergency Visit Emergency Visit: Yes ED Registration Date: 05/02/19 Care time: The patient presented to the Emergency Department on the above date and was hospitalized for further evaluation of their emergent condition. - New Patient This patient is new to me today: Yes Date on this admission: 05/02/19 - Critical Care Critical Care patient: No
[2019-05-02] MEDS ORDERED: HEPARIN NA (PORCINE) 5,000 UNITS/ML 1ML VIAL ONE (06:50)
[2019-05-02] MEDS ORDERED: INSULIN (NOVOLOG) ASPART 100 UNITS/ML 10ML VIAL ONE ×2 (07:06→10:41)
[2019-05-02] MEDS: HEPARIN NA (PORCINE) 5,000 UNITS/ML 1ML VIAL SQ SCH ×2 (07:09→14:41)
[2019-05-02] MEDS: INSULIN SLIDING SCALE (NOVOLOG) 1 VIAL SQ SCH ×2 (07:10→10:46)
[2019-05-02 08:34] LABS: EOS % 4.5 % (0-4.5); HEMATOCRIT 45.9 % (35.4-49); HEMOGLOBIN 15.5 GM/dL (11.7-16.9); LYMPH % 28.7 % (8-40); MCH 30.1 pg (25.7-33.7); MCHC 33.7 g/dl (32.0-35.9); MEAN CELL VOLUME 89.4 fl (80-96); MEAN PLT VOLUME 8.8 fl (7.5-11.1); MONO % 13.7 % (3.8-10.2); NEUT % 52.1 % (42.8-82.8); RBC 5.14 M/mm3 (4.00-5.60); RDW 13.7 % (11.9-15.9); WHITE BLOOD COUNT 5.8 K/mm3 (4.0-10.0)
[2019-05-02 08:58] LABS: INR 1.01 (0.83-1.09); PROTHROMBIN TIME (PATIENT) 11.9 SEC (9.7-13.0)
[2019-05-02 09:01] LABS: ACTIVATED PTT 33.9 SECONDS (25.2-36.5)
[2019-05-02 09:16] LABS: ALBUMIN 3.6 g/dl (3.4-5.0); BILIRUBIN,TOTAL 0.5 mg/dL (0.2-1); CALCIUM 8.8 mg/dL (8.5-10.1); CREATININE 1.7 mg/dL (0.55-1.3); MAGNESIUM 2.3 mg/dL (1.8-2.4); PHOSPHOROUS 3.3 mg/dL (2.5-4.9); POTASSIUM 4.3 mmol/L (3.5-5.1); TOT PROT 7.2 g/dl (6.4-8.2)
[2019-05-02] MEDS ORDERED: CARVEDILOL 25 MG TABLET (FP) PO SCH (10:00)
[2019-05-02] MEDS ORDERED: PANTOPRAZOLE 40 MG TABLET (FP) PO SCH (10:00)
[2019-05-02] MEDS ORDERED: LOSARTAN POTASSIUM 50 MG TABLET (FP) PO SCH (10:00)
[2019-05-02] MEDS ORDERED: ASPIRIN 81 MG CHEWABLE TABLETS PO SCH (10:00)
[2019-05-02] MEDS ORDERED: KETOROLAC TROMETHAMINE 30 MG/1 ML VIAL ONE (10:05)
[2019-05-02] MEDS ORDERED: ONDANSETRON 4 MG/2 ML VIAL ONE (10:05)
[2019-05-02] MEDS ORDERED: PANTOPRAZOLE 40 MG TABLET (FP) ONE (10:31)
[2019-05-02] MEDS ORDERED: CARVEDILOL 12.5 MG TABLET (FP) ONE (10:31)
[2019-05-02 12:20] LABS: PLATELET COUNT 239 K/MM3 (134-434)
--- NOTE | 2019-05-02 12:27 | EKG ---
Test Reason : Blood Pressure : / mmHG Vent. Rate : 065 BPM Atrial Rate : 065 BPM P-R Int : 172 ms QRS Dur : 094 ms QT Int : 420 ms P-R-T Axes : 052 -39 155 degrees QTc Int : 436 ms NORMAL SINUS RHYTHM POSSIBLE LEFT ATRIAL ENLARGEMENT LEFT AXIS DEVIATION INCOMPLETE RIGHT BUNDLE BRANCH BLOCK LEFT VENTRICULAR HYPERTROPHY WITH REPOLARIZATION ABNORMALITY NONSPECIFIC T WAVE ABNORMALITY ABNORMAL ECG WHEN COMPARED WITH ECG OF 02-MAY-2019 03:53, INCOMPLETE RIGHT BUNDLE BRANCH BLOCK IS NOW PRESENT CRITERIA FOR LATERAL INFARCT ARE NO LONGER PRESENT Confirmed by PA MORENO MD ([id number]) on 05/02/2019 12:27:47 PM Referred By: Confirmed By:PA MORENO MD
--- NOTE | 2019-05-02 12:30 | EKG ---
Test Reason : Blood Pressure : / mmHG Vent. Rate : 076 BPM Atrial Rate : 076 BPM P-R Int : 168 ms QRS Dur : 110 ms QT Int : 400 ms P-R-T Axes : 112 228 053 degrees QTc Int : 450 ms SUSPECT ARM LEAD REVERSAL, INTERPRETATION ASSUMES NO REVERSAL NORMAL SINUS RHYTHM MINIMAL VOLTAGE CRITERIA FOR LVH, MAY BE NORMAL VARIANT LATERAL INFARCT , AGE UNDETERMINED ABNORMAL ECG WHEN COMPARED WITH ECG OF 26-FEB-2019 18:43, SIGNIFICANT CHANGES HAVE OCCURRED Confirmed by PA MORENO MD ([id number]) on 05/02/2019 12:29:35 PM Referred By: Confirmed By:PA MORENO MD
--- NOTE | 2019-05-02 13:54 | ECHO ---
Name: AGUSTIN MELTON JR Exam:Adult Echocardiogram Study Date: 05/02/2019 11:34 AM Age: 68 yrs Reason For Study: CHEST PAIN/HYPERTENSIVE EMERGENCY Height: 70 in Weight: 240 lb BSA: 2.3 m2 MMode/2D Measurements & Calculations IVSd: 0.93 cm Ao root diam: 3.6 cm LVIDd: 5.7 cm LA dimension: 3.4 cm LVIDs: 3.6 cm ACS: 1.6 cm LVPWd: 1.4 cm IVSs: 1.6 cm LVPWs: 1.6 cm EDV(Teich): 157.2 ml ESV(Teich): 52.8 ml Doppler Measurements & Calculations MV E max anselmo: 39.5 cm/sec Ao V2 max: 118.1 cm/sec MV A max anselmo: 70.1 cm/sec Ao max P.6 mmHg MV E/A: 0.56 Ao V2 mean: 89.6 cm/sec Ao mean P.4 mmHg Ao V2 VTI: 22.4 cm Med Peak E' Anselmo: 4.1 cm/sec Med E/e': 9.6 Lat Peak E' Anselmo: 5.6 cm/sec Lat E/e': 7.1 Left Ventricle There is mild concentric left ventricular hypertrophy. Left ventricular systolic function is normal. The transmitral spectral Doppler flow pattern is suggestive of impaired LV relaxation. Right Ventricle The right ventricle is normal in size and function. Atria Normal left and right atrial size and function. Mitral Valve There is mild to moderate mitral valve thickening. There is no mitral valve stenosis. There is trace to mild mitral regurgitation. Tricuspid Valve The tricuspid valve is normal in structure and function. There is mild tricuspid regurgitation. Aortic Valve There is mild aortic sclerosis.;. No hemodynamically significant valvular aortic stenosis. No aortic regurgitation is present. Pulmonic Valve The pulmonic valve is not well seen, but is grossly normal. There is no pulmonic valvular stenosis. Great Vessels The aortic root is normal size. Pericardium/Pleura There is no pericardial effusion. Interpretation Summary Left ventricular systolic function is normal. The transmitral spectral Doppler flow pattern is suggestive of impaired LV relaxation. The right ventricle is normal in size and function. There is mild to moderate mitral valve thickening. There is trace to mild mitral regurgitation. There is mild tricuspid regurgitation. The aortic root is normal size. There is no pericardial effusion. There is mild aortic sclerosis.; MD Richards *[place] 05/02/2019 01:54 PM
--- NOTE | 2019-05-02 16:22 | DS ---
Physical Exam: SUBJECTIVE: Patient seen and examined at bedside. No acute events overnight. OBJECTIVE: Vital Signs Period Temp Pulse Resp BP Sys/Oneal Pulse Ox Last 24 Hr 98.3 F-98.3 F 66-81 14-18 162-197/82-100 96-99 PHYSICAL EXAM HEENT: No Jaundice, eye redness or discharge, PERRLA, EOMI. Normocephalic, atraumatic. External ears are normal and hearing is grossly intact. No nasal discharge. Neck: Supple, nontender. No palpable adenopathy or thyromegaly. No JVD Chest: Good effort. Clear to auscultation and percussion. Heart: Regular. No S3, rub or murmur Abdomen: Not distended, soft, nontender and no HSM. No rebound or guarding. Normal bowel sounds. Ext: Peripheral pulses intact. No leg edema. Skin: Warm and dry. No petechiae, rash or ecchymosis. Neuro: Alert. Oriented x3. CN 2-12 grossly intact. Sensation grossly intact in all four extremities and DTR are symmetric. Psych: Appropriate mood and affect. Good insight. LABS Laboratory Results - last 24 hr 05/02/19 05/02/19 05/02/19 04:06 04:06 04:06 WBC 5.7 RBC 5.29 Hgb 15.9 Hct 48.1 MCV 90.9 MCH 30.1 MCHC 33.1 RDW 13.8 Plt Count 244 MPV 8.8 Absolute Neuts (auto) 3.2 Neutrophils % 56.3 Lymphocytes % 23.2 Monocytes % 14.8 H Eosinophils % 4.5 Basophils % 1.2 Nucleated RBC % 0 PT with INR 11.40 INR 0.97 PTT (Actin FS) 37.4 H Sodium 141 Potassium 4.5 Chloride 107 Carbon Dioxide 30 Anion Gap 5 L BUN 23 H Creatinine 1.8 H Est GFR (CKD-EPI)AfAm 43.84 Est GFR (CKD-EPI)NonAf 37.83 POC Glucometer Random Glucose 185 H Hemoglobin A1c % Calcium 8.8 Phosphorus Magnesium 2.3 Total Bilirubin 0.3 AST 22 ALT 40 Alkaline Phosphatase 170 H Troponin I 0.02 B-Natriuretic Peptide Total Protein 7.4 Albumin 3.6 Triglycerides Cholesterol Total LDL Cholesterol HDL Cholesterol Total Amylase Lipase TSH 05/02/19 05/02/19 05/02/19 04:06 06:29 07:00 WBC RBC Hgb Hct MCV MCH MCHC RDW Plt Count MPV Absolute Neuts (auto) Neutrophils % Lymphocytes % Monocytes % Eosinophils % Basophils % Nucleated RBC % PT with INR INR PTT (Actin FS) Sodium Potassium Chloride Carbon Dioxide Anion Gap BUN Creatinine Est GFR (CKD-EPI)AfAm Est GFR (CKD-EPI)NonAf POC Glucometer 157 Random Glucose Hemoglobin A1c % Calcium Phosphorus Magnesium Total Bilirubin AST ALT Alkaline Phosphatase Troponin I 0.02 B-Natriuretic Peptide 146.4 H Total Protein Albumin Triglycerides Cholesterol Total LDL Cholesterol HDL Cholesterol Total Amylase Lipase TSH 05/02/19 05/02/19 05/02/19 07:03 08:10 08:10 WBC 5.8 RBC 5.14 Hgb 15.5 Hct 45.9 MCV 89.4 MCH 30.1 MCHC 33.7 RDW 13.7 Plt Count 239 MPV 8.8 Absolute Neuts (auto) 3.0 Neutrophils % 52.1 Lymphocytes % 28.7 D Monocytes % 13.7 H Eosinophils % 4.5 Basophils % 1.0 Nucleated RBC % 0 PT with INR 11.90 INR 1.01 PTT (Actin FS) 33.9 Sodium Potassium Chloride Carbon Dioxide Anion Gap BUN Creatinine Est GFR (CKD-EPI)AfAm Est GFR (CKD-EPI)NonAf POC Glucometer 156 Random Glucose Hemoglobin A1c % Calcium Phosphorus Magnesium Total Bilirubin AST ALT Alkaline Phosphatase Troponin I B-Natriuretic Peptide Total Protein Albumin Triglycerides Cholesterol Total LDL Cholesterol HDL Cholesterol Total Amylase Lipase TSH 05/02/19 05/02/19 05/02/19 08:10 08:10 10:38 WBC RBC Hgb Hct MCV MCH MCHC RDW Plt Count MPV Absolute Neuts (auto) Neutrophils % Lymphocytes % Monocytes % Eosinophils % Basophils % Nucleated RBC % PT with INR INR PTT (Actin FS) Sodium 141 Potassium 4.3 Chloride 106 Carbon Dioxide 29 Anion Gap 7 L BUN 20 H Creatinine 1.7 H Est GFR (CKD-EPI)AfAm 46.98 Est GFR (CKD-EPI)NonAf 40.54 POC Glucometer 267 Random Glucose 167 H Hemoglobin A1c % 7.3 H Calcium 8.8 Phosphorus 3.3 Magnesium 2.3 Total Bilirubin 0.5 AST 19 ALT 42 Alkaline Phosphatase 135 H Troponin I 0.02 B-Natriuretic Peptide Total Protein 7.2 Albumin 3.6 Triglycerides 124 Cholesterol 213 H Total LDL Cholesterol 145 H HDL Cholesterol 48 Total Amylase 96 Lipase 74 TSH 1.29 05/02/19 15:00 WBC RBC Hgb Hct MCV MCH MCHC RDW Plt Count MPV Absolute Neuts (auto) Neutrophils % Lymphocytes % Monocytes % Eosinophils % Basophils % Nucleated RBC % PT with INR INR PTT (Actin FS) Sodium Potassium Chloride Carbon Dioxide Anion Gap BUN Creatinine Est GFR (CKD-EPI)AfAm Est GFR (CKD-EPI)NonAf POC Glucometer Random Glucose Hemoglobin A1c % Calcium Phosphorus Magnesium Total Bilirubin AST ALT Alkaline Phosphatase Troponin I < 0.02 B-Natriuretic Peptide Total Protein Albumin Triglycerides Cholesterol Total LDL Cholesterol HDL Cholesterol Total Amylase Lipase TSH HOSPITAL COURSE: Date of Admission:05/02/19 IMAGING: * Echo: Mild concentric LVH. LV systolic fxn is normal. Transmitral spectral Doppler flow pattern is suggestive of impaired LV relaxation. Mild to mod mitral valve thickening. No mitral valve stenosis. Trace to mild MR. Mild TR. Mild aortic sclerosis. 68M with pmhx of HTN, HLD, previous tobacco use (quit over 30 yrs), GERD, NIDDM , [place], fatty liver presented to the ED with chest pain admitted for hypertensive urgency. Trops were neg x3. EKG showed TWI in V1 and V2. Echo was done that showed impaired LV relaxation. In the ED, pt was given NS, ASA, amlodipine, Losartan. He was monitored on telemetry overnight. Pt was scheduled to obtain treadmill stress echo, however his BP was significantly elevated and thus, he was unable to do so. Alternatively, plan was for pt to obtain a nuclear stress echo, however he was not made NPO. As a result, pt was advised to remain in the hospital in order to do the stress test the following Sunday, however he had declined to wait for test to be done. Throughout his hospital stay, pt's symptoms improved and repeat BP was manually checked by the physician recorded at 140/70. He was ultimately instructed to obtain a stress test as an outpatient with his body and fender mechanic apprentice. Upon discharge, he was also advised to follow up with his PCP. He was started on a statin and advised to have his LFTs and lipid panel checked during his PCP outpatient follow up. Date of Discharge: 05/02/19 Discharge Summary Reason For Visit: ACUTE KIDNEY INJURY,CHEST PAIN Condition: Improved - Instructions Diet, Activity, Other Instructions: You were seen in the hospital for complaints of chest pain. Lab work done was unremarkable. An echocardiogram was done that showed impaired function of your left ventricle. Your heart enzymes did not show any heart damage. You underwent a stress test, however your blood pressure was too high for it to be completed. You will need to make an appointment as an outpatient to have this done. MEDICATIONS Please continue taking the rest of your home meds as prescribed. CARE You will need to arrange a stress test as an outpatient. Once you call and make an appointment you will be told the instructions for the test. Do not eat after midnight the night prior to your stress test. You should also not take your blood pressure medication, carvedilol after midnight on the day of the test. Avoid caffeine for 24 hours prior. Your body and fender mechanic apprentice will discuss this with you in detail. While you were here, your kidney numbers (creatinine) was slightly elevated. Please stay hydrated upon discharge. FOLLOW UP Please follow up with your primary care physician, Dr. Fraire within 1 week. Please follow up with body and fender mechanic apprentice, Dr. Loco this week to have your stress test repeated. If you experience worsening chest pain, headaches, dizziness, shortness of breath, difficulty breathing or other associated symptoms, please proceed to your nearest emergency room immediately. Referrals: Maurice Loco MD [Staff Physician] - 1 Week Tristan Fraire [Primary Care Provider] - 1 Week Disposition: HOME - Home Medications Comprehensive Discharge Medication List: Ambulatory Orders Carvedilol 25 mg PO BID 03/27/15 Losartan Potassium 100 mg PO DAILY 03/27/15 Pantoprazole Sodium [Protonix] 40 mg PO DAILY 03/27/15 Aspirin [ASA -] 81 mg PO DAILY 11/05/18 Albuterol Sulfate Inhaler - [Ventolin HFA Inhaler -] 1 - 2 inh PO Q6H #1 inhaler 02/26/19 Amlodipine Besylate 5 mg PO HS 05/02/19 Atorvastatin Ca [Lipitor] 40 mg PO HS tablet 05/02/19 metFORMIN HCL [Metformin HCl] 500 mg PO BID 05/02/19
[2019-05-02 16:46] VITALS: BP 179/88; PULSE 78; BMI 34.4
--- NOTE | 2019-05-02 17:57 | PN ---
Teaching Attending Note Name of Resident: Zoila Zuleta ATTENDING PHYSICIAN STATEMENT I saw and evaluated the patient. I reviewed the resident's note and discussed the case with the resident. I agree with the resident's findings and plan as documented. SUBJECTIVE: Feels well - no further chest pain. No palpitations/SOB. No fever/ chills. OBJECTIVE: Afebrile, Hemodynamically Stable. Last Vital Signs Temp Pulse Resp BP Pulse Ox 98.3 F 78 17 179/88 H 99 05/02/19 16:29 05/02/19 16:29 05/02/19 16:29 05/02/19 16:29 05/02/19 16:29 HEENT - Atraumatic, Normocephalic. Heart - S1, S2, RRR Lungs - clear to auscultation. Abdomen -Soft, non-tender. Bowel Sounds normal. Extremities - no edema, no calf tenderness Laboratory Results - last 24 hr 05/02/19 05/02/19 05/02/19 04:06 04:06 04:06 WBC 5.7 RBC 5.29 Hgb 15.9 Hct 48.1 MCV 90.9 MCH 30.1 MCHC 33.1 RDW 13.8 Plt Count 244 MPV 8.8 Absolute Neuts (auto) 3.2 Neutrophils % 56.3 Lymphocytes % 23.2 Monocytes % 14.8 H Eosinophils % 4.5 Basophils % 1.2 Nucleated RBC % 0 PT with INR 11.40 INR 0.97 PTT (Actin FS) 37.4 H Sodium 141 Potassium 4.5 Chloride 107 Carbon Dioxide 30 Anion Gap 5 L BUN 23 H Creatinine 1.8 H Est GFR (CKD-EPI)AfAm 43.84 Est GFR (CKD-EPI)NonAf 37.83 POC Glucometer Random Glucose 185 H Hemoglobin A1c % Calcium 8.8 Phosphorus Magnesium 2.3 Total Bilirubin 0.3 AST 22 ALT 40 Alkaline Phosphatase 170 H Troponin I 0.02 B-Natriuretic Peptide Total Protein 7.4 Albumin 3.6 Triglycerides Cholesterol Total LDL Cholesterol HDL Cholesterol Total Amylase Lipase TSH 05/02/19 05/02/19 05/02/19 04:06 06:29 07:00 WBC RBC Hgb Hct MCV MCH MCHC RDW Plt Count MPV Absolute Neuts (auto) Neutrophils % Lymphocytes % Monocytes % Eosinophils % Basophils % Nucleated RBC % PT with INR INR PTT (Actin FS) Sodium Potassium Chloride Carbon Dioxide Anion Gap BUN Creatinine Est GFR (CKD-EPI)AfAm Est GFR (CKD-EPI)NonAf POC Glucometer 157 Random Glucose Hemoglobin A1c % Calcium Phosphorus Magnesium Total Bilirubin AST ALT Alkaline Phosphatase Troponin I 0.02 B-Natriuretic Peptide 146.4 H Total Protein Albumin Triglycerides Cholesterol Total LDL Cholesterol HDL Cholesterol Total Amylase Lipase TSH 05/02/19 05/02/19 05/02/19 07:03 08:10 08:10 WBC 5.8 RBC 5.14 Hgb 15.5 Hct 45.9 MCV 89.4 MCH 30.1 MCHC 33.7 RDW 13.7 Plt Count 239 MPV 8.8 Absolute Neuts (auto) 3.0 Neutrophils % 52.1 Lymphocytes % 28.7 D Monocytes % 13.7 H Eosinophils % 4.5 Basophils % 1.0 Nucleated RBC % 0 PT with INR 11.90 INR 1.01 PTT (Actin FS) 33.9 Sodium Potassium Chloride Carbon Dioxide Anion Gap BUN Creatinine Est GFR (CKD-EPI)AfAm Est GFR (CKD-EPI)NonAf POC Glucometer 156 Random Glucose Hemoglobin A1c % Calcium Phosphorus Magnesium Total Bilirubin AST ALT Alkaline Phosphatase Troponin I B-Natriuretic Peptide Total Protein Albumin Triglycerides Cholesterol Total LDL Cholesterol HDL Cholesterol Total Amylase Lipase TSH 05/02/19 05/02/19 05/02/19 08:10 08:10 10:38 WBC RBC Hgb Hct MCV MCH MCHC RDW Plt Count MPV Absolute Neuts (auto) Neutrophils % Lymphocytes % Monocytes % Eosinophils % Basophils % Nucleated RBC % PT with INR INR PTT (Actin FS) Sodium 141 Potassium 4.3 Chloride 106 Carbon Dioxide 29 Anion Gap 7 L BUN 20 H Creatinine 1.7 H Est GFR (CKD-EPI)AfAm 46.98 Est GFR (CKD-EPI)NonAf 40.54 POC Glucometer 267 Random Glucose 167 H Hemoglobin A1c % 7.3 H Calcium 8.8 Phosphorus 3.3 Magnesium 2.3 Total Bilirubin 0.5 AST 19 ALT 42 Alkaline Phosphatase 135 H Troponin I 0.02 B-Natriuretic Peptide Total Protein 7.2 Albumin 3.6 Triglycerides 124 Cholesterol 213 H Total LDL Cholesterol 145 H HDL Cholesterol 48 Total Amylase 96 Lipase 74 TSH 1.29 05/02/19 15:00 WBC RBC Hgb Hct MCV MCH MCHC RDW Plt Count MPV Absolute Neuts (auto) Neutrophils % Lymphocytes % Monocytes % Eosinophils % Basophils % Nucleated RBC % PT with INR INR PTT (Actin FS) Sodium Potassium Chloride Carbon Dioxide Anion Gap BUN Creatinine Est GFR (CKD-EPI)AfAm Est GFR (CKD-EPI)NonAf POC Glucometer Random Glucose Hemoglobin A1c % Calcium Phosphorus Magnesium Total Bilirubin AST ALT Alkaline Phosphatase Troponin I < 0.02 B-Natriuretic Peptide Total Protein Albumin Triglycerides Cholesterol Total LDL Cholesterol HDL Cholesterol Total Amylase Lipase TSH Home Medications Medication Instructions Recorded Carvedilol 25 mg PO BID 03/27/15 Losartan Potassium 100 mg PO DAILY 03/27/15 Pantoprazole Sodium [Protonix] 40 mg PO DAILY 03/27/15 Aspirin [ASA -] 81 mg PO DAILY 11/05/18 Albuterol Sulfate Inhaler - 1 - 2 inh PO Q6H #1 inhaler 02/26/19 [Ventolin HFA Inhaler -] Amlodipine Besylate 5 mg PO HS 05/02/19 Atorvastatin Ca [Lipitor] 40 mg PO HS tablet 05/02/19 metFORMIN HCL [Metformin HCl] 500 mg PO BID 05/02/19 ASSESSMENT AND PLAN: 68 year old male with HTN, HLD, CKD, ex-smoker, GERD, DM 2, CAD s/p [place], CHILDS, presented with an episode of chest pain. 1. Atypical Chest Pain, resolved. Troponin neg x 3. ECG - T wave inversions Unable to perform stress test due to having eaten a sandwich in the morning. Declines any further hospitalization for repeat stress on Sunday05/05/19 Understood risks of leaving and chose to do so. He will follow with Cardiology as an out-patient. Currently pain free. 2. Hypertensive Emergency HTN resolved on resuming home anti-hypertensive medications (Carvedilol, Losartan, Norvasc) Importance of medication compliance stressed to patient. 3. DM 2 - resume home medications (Metformin) 4. HLD - Started on Statin - for out-patient Cardiology follow up for Lipid follow up and LFT testing on Statin. 5. CKD 3 - Creat at baseline. Medically stable for discharge. Chest pain free. Advised to return to ED if any further CP, and to follow with Cardiology as soon as he can arrange.
[2019-05-02] MEDS ORDERED: ATORVASTATIN CA 40 MG TABLET (FP) PO SCH (22:00)
== END 2019-05-02 16:57 | disposition home or self-care (01) ==
LOC: JER 03:28 → JERBED 04:59 → J4W 15:46
PROVIDERS: ADMIT Internal Medicine
PROC: 3E0337Z Introduction of Electrolytic and Water Balance Substance into Peripheral Vein, Percutaneous Approach (ICD-10-PCS; principal; 2019-05-02)
PROC: 3E013VG Introduction of Insulin into Subcutaneous Tissue, Percutaneous Approach (ICD-10-PCS; 2019-05-02)
DX: I16.1 Hypertensive emergency (principal); R07.9 Chest pain, unspecified; N17.9 Acute kidney failure, unspecified; I10 Essential (primary) hypertension; E78.5 Hyperlipidemia, unspecified; K21.9 Gastro-esophageal reflux disease without esophagitis; E11.65 Type 2 diabetes mellitus with hyperglycemia; I25.2 Old myocardial infarction; K76.0 Fatty (change of) liver, not elsewhere classified; E66.9 Obesity, unspecified; Z68.34 Body mass index [BMI] 34.0-34.9, adult; Z87.891 Personal history of nicotine dependence; Z79.82 Long term (current) use of aspirin; Z79.84 Long term (current) use of oral hypoglycemic drugs
CPT/HCPCS: 36415; 71045-TC-FY; 80053; 80061; 82150; 82962; 83036; 83690; 83721; 83735; 83880; 84100; 84443; 84484; 85025; 85610; 85730; 93005; 93010; 93306-TC; 96360; 96372; 99284-25; G0378; J1644; J7030

== ENCOUNTER 2019-12-10 09:45 | Emergency (ER) | payer OTHER ==
[2019-12-10 10:01] VITALS: BP 132/82; PULSE 87; TEMP 99.3; BMI 34.4
--- NOTE | 2019-12-10 13:09 | PDOC ---
History of Present Illness - General Chief Complaint: Cold Symptoms Stated Complaint: FLU LIKE SYMPTOMS Time Seen by Provider: 12/10/19 10:16 - History of Present Illness Initial Comments: 12/10/19 13:06 69-year-old male with multiple comorbidities presents for evaluation of hiccups and flulike symptoms x1 day 12/10/19 13:06 He also complains of hiccups for the last 2 days Past History - Past Medical History Allergies/Adverse Reactions: Allergies Allergy/AdvReac Type Severity Reaction Status Date / Time No Known Allergies Allergy Verified 05/02/19 03:51 Home Medications: Ambulatory Orders Carvedilol 25 mg PO BID 03/27/15 Losartan Potassium 100 mg PO DAILY 03/27/15 Pantoprazole Sodium [Protonix] 40 mg PO DAILY 03/27/15 Aspirin [ASA -] 81 mg PO DAILY 11/05/18 Albuterol Sulfate Inhaler - [Ventolin HFA Inhaler -] 1 - 2 inh PO Q6H #1 inhaler 02/26/19 Amlodipine Besylate 5 mg PO HS 05/02/19 Atorvastatin Ca [Lipitor] 40 mg PO HS tablet 05/02/19 metFORMIN HCL [Metformin HCl] 500 mg PO BID 05/02/19 Azithromycin Ivpb [Zithromax 500Mg Ivpb (Pre-Docked)] 250 mg IVPB DAILY #6 vial 12/10/19 Baclofen 5 mg PO TID #30 tablet 12/10/19 Oseltamivir Phosphate [Tamiflu] 75 mg PO BID #10 capsule 12/10/19 Anemia: No COPD: No CHF: No Diabetes: Yes HTN: Yes Hypercholesterolemia: Yes - Surgical History Cardiac Surgery: No Neurologic Surgery: No - Immunization History Immunization Up to Date: Yes - Psycho Social/Smoking Cessation Hx Smoking History: Never smoked Have you smoked in the past 12 months: No If you are a former smoker, when did you quit?: 30 years Information on smoking cessation initiated: No Hx Alcohol Use: No Drug/Substance Use Hx: No Substance Use Type: None Review of Systems - Review of Systems Constitutional: Yes: Chills, Fever, Malaise, Night Sweats Respiratory: Yes: Cough *Physical Exam - Vital Signs Last Vital Signs Temp Pulse Resp BP Pulse Ox 99.3 F 87 16 132/82 98 12/10/19 09:58 12/10/19 09:58 12/10/19 09:58 12/10/19 09:58 12/10/19 09:58 - Physical Exam 12/10/19 13:06 GENERAL: The patient is awake, alert, and fully oriented, in no acute distress. HEAD: Normal with no signs of trauma. EYES: sclera anicteric, conjunctiva clear. ENT: Ears normal tympanic membranes normal oropharynx clear uvula midline NECK: Normal range of motion LUNGS: Breath sounds equal, clear to auscultation bilaterally. No wheezes, and no crackles. HEART: S1 and S2 without murmur, rub or gallop. ABDOMEN: Soft, nontender, normoactive bowel sounds. No guarding, no rebound. No masses. EXTREMITIES: Normal range of motion, no edema. No clubbing or cyanosis. No cords, erythema, or tenderness. NEUROLOGICAL: Cranial nerves II through XII grossly intact. Normal speech, normal gait. PSYCH: Normal mood, normal affect. SKIN: Warm, Dry, normal turgor, no rashes or lesions noted. ED Treatment Course - RADIOLOGY Radiology Studies Ordered: Category Date Time Status CHEST PA & LAT [RAD] Stat Radiology 12/10/19 12:02 Completed Medical Decision Making - Medical Decision Making 12/10/19 13:06 X-rays show a questionable evolving infiltrate in the right lower lobe or effusion. Flu positive this case was discussed with ER attending Tamiflu for influenza and Zithromax for possible bronchitis or pneumonia baclofen for hiccups follow-up with primary care physician. Discharge - Discharge Information Problems reviewed: Yes Clinical Impression/Diagnosis: Hiccups, Influenza, Bronchitis Condition: Stable Disposition: HOME - Admission No - Additional Discharge Information Prescriptions: Azithromycin Ivpb [Zithromax 500Mg Ivpb (Pre-Docked)] 250 mg IVPB DAILY #6 vial Baclofen 5 mg PO TID #30 tablet Oseltamivir Phosphate [Tamiflu] 75 mg PO BID #10 capsule - Follow up/Referral Referrals: Aurelio Rao MD [Staff Physician] - - Patient Discharge Instructions Patient Printed Discharge Instructions: DI for Acute Bronchitis, Influenza, Hiccups, DI for Hiccups Additional Instructions: Tamiflu for influenza, Zithromax for bronchitis, baclofen for hiccups. Return to the emergency room for worsening symptoms and without fail follow-up with your primary care physician in 1 to 2 days for further evaluation and treatment options. - Post Discharge Activity
== END 2019-12-10 13:27 | disposition home or self-care (01) ==
LOC: JER 09:45 → JERFT 09:45
DX: R06.6 Hiccough (principal); J40 Bronchitis, not specified as acute or chronic; J11.1 Influenza due to unidentified influenza virus with other respiratory manifestations; E11.9 Type 2 diabetes mellitus without complications; I10 Essential (primary) hypertension; E78.00 Pure hypercholesterolemia, unspecified; Z87.891 Personal history of nicotine dependence
CPT/HCPCS: 71046-TC-FY; 87804; 99282-25

== ENCOUNTER 2019-12-11 03:25 | Emergency (ER) | payer OTHER ==
[2019-12-11 03:53] VITALS: BP 125/81; PULSE 94; TEMP 100.2; BMI 34.4
--- NOTE | 2019-12-11 04:32 | PDOC ---
Attending Attestation - Resident Resident Name: Mame Cavanaugh - ED Attending Attestation I have performed the following: I have examined & evaluated the patient, The case was reviewed & discussed with the resident, I agree w/resident's findings & plan - HPI HPI: 12/11/19 04:48 see resident hpi - Physicial Exam PE: 12/11/19 04:49 see resident exam - Medical Decision Making 12/11/19 04:49 69-year-old male diagnosed with influenza in this facility earlier today now with hiccups which he has had in the past Plan for EKG, Atarax 25 mg IM and DC home
[2019-12-11] MEDS ORDERED: METOCLOPRAMIDE HCL INJECTION 10 MG/2 ML VIAL IM ONE (04:34)
[2019-12-11] MEDS ORDERED: hydrOXYzine HCL 100 MG/2 ML VIAL IM PRN (04:34)
[2019-12-11] MEDS ORDERED: hydrOXYzine HCL 100 MG/2 ML VIAL IM ONE (04:51)
--- NOTE | 2019-12-11 04:51 | PDOC ---
History of Present Illness - General Chief Complaint: Cold Symptoms Stated Complaint: HICCUPS Time Seen by Provider: 12/11/19 04:17 - History of Present Illness Initial Comments: Davey Lutz Jr is a 69yo man with a PMH HTN, HLD, previous tobacco use ( quit over 30 yrs), GERD, NIDDM, PA, fatty liver, seen in the ED earlier today and diagnosed with influenza as well as given baclofen for hiccups who presents to the ED reporting that his hiccups have continued. He denies any other new or different symptoms including chest pain, SOB, worsening fever, or other current problems. Past History - Past Medical History Allergies/Adverse Reactions: Allergies Allergy/AdvReac Type Severity Reaction Status Date / Time No Known Allergies Allergy Verified 05/02/19 03:51 Home Medications: Ambulatory Orders Carvedilol 25 mg PO BID 03/27/15 Losartan Potassium 100 mg PO DAILY 03/27/15 Pantoprazole Sodium [Protonix] 40 mg PO DAILY 03/27/15 Aspirin [ASA -] 81 mg PO DAILY 11/05/18 Albuterol Sulfate Inhaler - [Ventolin HFA Inhaler -] 1 - 2 inh PO Q6H #1 inhaler 02/26/19 Amlodipine Besylate 5 mg PO HS 05/02/19 Atorvastatin Ca [Lipitor] 40 mg PO HS tablet 05/02/19 metFORMIN HCL [Metformin HCl] 500 mg PO BID 05/02/19 Azithromycin Ivpb [Zithromax 500Mg Ivpb (Pre-Docked)] 250 mg IVPB DAILY #6 vial 12/10/19 Baclofen 5 mg PO TID #30 tablet 12/10/19 Oseltamivir Phosphate [Tamiflu] 75 mg PO BID #10 capsule 12/10/19 Anemia: No COPD: No CHF: No Diabetes: Yes HTN: Yes Hypercholesterolemia: Yes - Surgical History Cardiac Surgery: No Neurologic Surgery: No - Immunization History Immunization Up to Date: Yes - Psycho Social/Smoking Cessation Hx Smoking History: Never smoked Have you smoked in the past 12 months: No If you are a former smoker, when did you quit?: 30 years Hx Alcohol Use: No Drug/Substance Use Hx: No Substance Use Type: None Review of Systems - Review of Systems Comments:: General: +fever, +malaise HEENT: No changes in vision, no changes in hearing, no congestion, no sore throat CV: No chest pain, no palpitations, no LE edema Pulm: + Cough, +influenza dx GI: No nausea or vomiting, no change in bowel habits, no melena : No frequency, no urgency, no dysuria Musc: No back pain, no joint swelling, no recent injury Skin: No rash, no lesions, no erythema Endo: No excessive thirst, no heat/cold intolerance Heme: No unusual bruising or bleeding, no swollen glands Neuro: No syncope, no numbness/tingling, no focal weakness Vasc: No claudication Psych: No recent change in mood, no SI or HI *Physical Exam - Vital Signs Last Vital Signs Temp Pulse Resp BP Pulse Ox 100.2 F H 94 H 18 125/81 95 12/11/19 03:52 12/11/19 03:52 12/11/19 03:52 12/11/19 03:52 12/11/19 03:52 - Physical Exam General: Comfortable, no acute distress. No hiccups observed HEENT: PERRL, EOMI, MMM, voice normal, normal neck ROM Cards: RRR, no murmur appreciated Pulm: Comfortable on room air, clear to auscultation bilaterally Abd: Soft, nontender, nondistended Ext: Atraumatic. No LE edema. ROM intact. WWP Skin: Normal color, no rashes or lesions Neuro: A&Ox3, CN grossly intact, normal speech, motor/sensory grossly intact and symmetric Psych: Mood appropriate to situation Medical Decision Making - Medical Decision Making 12/11/19 04:51 Davey Lutz Jr is a 69yo man with a PMH HTN, HLD, previous tobacco use ( quit over 30 yrs), GERD, NIDDM, PA, fatty liver, seen in the ED earlier today with influenza and hiccups. He presents to the ED with continued hiccups. - Discussed with patient that hiccups are not usually dangerous - Tried baclofen without improvement. Will give hydroxyzine and reglan - EKG completed; HSR, HR 86, left axis, normal intervals, no ST changes. Compared to prior, lateral lead t-waves no longer inverted. No concerning changes. - Plan to d/c home with PMD follow up Discussed with Dr Jose Luis Cavanaugh PGY2 Discharge - Discharge Information Problems reviewed: Yes Clinical Impression/Diagnosis: Hiccups Condition: Stable Disposition: HOME - Admission No - Follow up/Referral Referrals: Tristan Fraire [Primary Care Provider] - - Patient Discharge Instructions Patient Printed Discharge Instructions: DI for Hiccups Additional Instructions: Discharge Instructions: You were seen in the emergency department for hiccups. This is unlikely to be a dangerous symptom, though it can be annoying. Continue to take your previously prescribed baclofen if you feel it is helpful, though hiccups usually resolve without any special treatment. Follow up with your primary doctor if you have continued symptoms. - Post Discharge Activity
[2019-12-11] MEDS ORDERED: hydrOXYzine HCL 50 MG/ML VIAL IM ONE (04:52)
[2019-12-11] MEDS ORDERED: METOCLOPRAMIDE HCL INJECTION 10 MG/2 ML VIAL ONE (04:52)
--- NOTE | 2019-12-11 11:59 | EKG ---
Test Reason : Blood Pressure : / mmHG Vent. Rate : 086 BPM Atrial Rate : 086 BPM P-R Int : 180 ms QRS Dur : 108 ms QT Int : 358 ms P-R-T Axes : 064 -30 114 degrees QTc Int : 428 ms NORMAL SINUS RHYTHM LEFT AXIS DEVIATION T WAVE ABNORMALITY, CONSIDER LATERAL ISCHEMIA ABNORMAL ECG WHEN COMPARED WITH ECG OF 02-MAY-2019 06:36, INCOMPLETE RIGHT BUNDLE BRANCH BLOCK IS NO LONGER PRESENT Confirmed by JOI FUNES, SRINATH ([id number]) on 12/11/2019 11:58:40 AM Referred By: Confirmed By:SRINATH TAMEZ MD
== END 2019-12-11 05:30 | disposition home or self-care (01) ==
LOC: JER 03:25
PROC: 3E023NZ Introduction of Analgesics, Hypnotics, Sedatives into Muscle, Percutaneous Approach (ICD-10-PCS; principal; 2019-12-11)
PROC: 3E023GC Introduction of Other Therapeutic Substance into Muscle, Percutaneous Approach (ICD-10-PCS; 2019-12-11)
DX: J11.1 Influenza due to unidentified influenza virus with other respiratory manifestations (principal); R06.6 Hiccough; I25.10 Atherosclerotic heart disease of native coronary artery without angina pectoris; I10 Essential (primary) hypertension; I25.2 Old myocardial infarction; E11.9 Type 2 diabetes mellitus without complications; Z79.84 Long term (current) use of oral hypoglycemic drugs; K21.9 Gastro-esophageal reflux disease without esophagitis; E78.5 Hyperlipidemia, unspecified; Z87.891 Personal history of nicotine dependence
CPT/HCPCS: 93005; 93010; 99282-25

== ENCOUNTER 2019-12-17 14:58 | Inpatient (IN) | payer OTHER ==
--- NOTE | 2019-12-17 15:32 | PDOC ---
History of Present Illness - General Chief Complaint: Weakness Stated Complaint: Weakness - History of Present Illness Initial Comments: 12/17/19 15:29 Mr. Lutz is a 69 yo male w/ pmh of HTN, HLD, GERD, DM, MT who presents for evaluation of increasing confusion per who is wish him. Patient has no complaints however reports increased confusion. who is with him reports symptoms have persisted for the last day. Patient denies any pain or other symptoms. Of note, was diagnosed with flu last week (12/11) and is s/p a course of tamiflu. Reports flu symptoms have resolved. The patient denies chest pain, shortness of breath, headache and dizziness. Denies fever, chills, nausea, vomit, diarrhea and constipation. Denies dysuria, frequency, urgency and hematuria. tPA Exclusion checklist 3-4.5h - Time Elapsed Date last known well: 12/15/19 Time last known well: 05:30 Elaspsed time: 2 Day(s) and 12 Hour(s) and 17 Minutes - Thrombolytic Therapy Candidate Is patient eligible for thrombolytic therapy: No - Exclusion Criteria 3-4.5 hr SBP greater than 185 or DBP greater than 110mmHg despite tx: No Recent IC/spinal surgery,head trauma or stroke<3mos.: No Hx IC hemorrhage, IC neoplasm, AV malformation or aneurysm: No Active internal bleeding: No Blding diathesis(low plt ct, inc PTT,INR>1.7 or use of NOAC): No Symptoms suggest subarachnoid hemorrhage: No CT demonstrates multilobar infarct(>1/3 cerebral hemiphere): No Arterial puncture at noncompressible site in previous 7 days: No Blood glucose concentration less than 50mg/dL (2.7mmol/L): No - Relative Exclusion Criteria 3-4.5 hr Life expectancy <1 yr or severe co-morbid illness: No : No Patient/family refused: No Rapid improvement: No Stroke severity too mild: Yes Recent acute MT (w/in previous 3 months): No Seizure at onset with postictal residual neuro impairments: No Major surgery or serious trauma w/in previous 14 days: No Recent GI or hemorrhage (w/in previous 21 days): No - Add'l Relative Exclusion 3-4.5 hr Age > 80: No Hx of both diabetes AND prior ischemic stroke: No Taking an oral anticoagulant regardless of INR: No NIHSS >25: No - Ineligibility reason(s) Reasons No tPA given: Outside of window - delayed arrival NIH Stroke Scale - Last Known Well Date/Time & Onset Date Last Known Well: 12/15/19 Time Last Known Well: 05:30 - Initial Evaluation Level of consciousness: Alert Ask patient the month and their age: Answers both correctly Ask patient to open & close eyes; make fist and let go: Obeys both correctly Best gaze (horizontal eye movement): Normal Visual field testing: No visual field loss Facial paresis (Show teeth/raise eyebrows/close eyes tight): Normal symmetrical movement Motor Function: Left Arm: Normal Motor Function: Right Arm: Normal (extends arm 90 (or 45) degrees for 10 seconds without drift Motor Function: Left Leg: Normal (extends leg 30 degrees for 5 seconds without drift) Motor Function: Right Leg: Normal (extends leg 30 degrees for 5 seconds without drift) Limb Ataxia: No ataxia Sensory(Use pinprick test arms,legs,trunk,face/side to side): Normal Best language (Describe picture, name items, read sentences): Mild to moderate aphasia Dysarthria (read several words): Normal articulation Extinction and Inattention: No abnormality - Total Score NIH Stroke Scale Score: 1 Past History - Past Medical History Allergies/Adverse Reactions: Allergies Allergy/AdvReac Type Severity Reaction Status Date / Time No Known Allergies Allergy Verified 05/02/19 03:51 Home Medications: Ambulatory Orders Carvedilol 25 mg PO BID 03/27/15 Losartan Potassium 100 mg PO DAILY 03/27/15 Pantoprazole Sodium [Protonix] 40 mg PO DAILY 03/27/15 Aspirin [ASA -] 81 mg PO DAILY 11/05/18 Albuterol Sulfate Inhaler - [Ventolin HFA Inhaler -] 1 - 2 inh PO Q6H #1 inhaler 02/26/19 Amlodipine Besylate 5 mg PO HS 05/02/19 Atorvastatin Ca [Lipitor] 40 mg PO HS tablet 05/02/19 metFORMIN HCL [Metformin HCl] 500 mg PO BID 05/02/19 Azithromycin Ivpb [Zithromax 500Mg Ivpb (Pre-Docked)] 250 mg IVPB DAILY #6 vial 12/10/19 Baclofen 5 mg PO TID #30 tablet 12/10/19 Oseltamivir Phosphate [Tamiflu] 75 mg PO BID #10 capsule 12/10/19 Anemia: No COPD: No CHF: No Diabetes: Yes HTN: Yes Hypercholesterolemia: Yes - Surgical History Cardiac Surgery: No Neurologic Surgery: No - Immunization History Immunization Up to Date: Yes - Psycho Social/Smoking Cessation Hx Smoking History: Never smoked Have you smoked in the past 12 months: No If you are a former smoker, when did you quit?: 30 years Hx Alcohol Use: No Drug/Substance Use Hx: No Substance Use Type: None Review of Systems - Review of Systems Comments:: 12/17/19 15:31 GENERAL/CONSTITUTIONAL: No fever or chills. No weakness. HEAD, EYES, EARS, NOSE AND THROAT: No change in vision. No ear pain or discharge. No sore throat. CARDIOVASCULAR: No chest pain or shortness of breath RESPIRATORY: No cough, wheezing, or hemoptysis. GASTROINTESTINAL: No nausea, vomiting, diarrhea or constipation. GENITOURINARY: No dysuria, frequency, or change in urination. MUSCULOSKELETAL: No joint or muscle swelling or pain. No neck or back pain. SKIN: No rash NEUROLOGIC: No headache, vertigo, loss of consciousness, or change in strength/ sensation. ENDOCRINE: No increased thirst. No abnormal weight change HEMATOLOGIC/LYMPHATIC: No anemia, easy bleeding, or history of blood clots. ALLERGIC/IMMUNOLOGIC: No hives or skin allergy. *Physical Exam - Physical Exam 12/17/19 15:31 GENERAL: Awake, alert, and oriented x3, in no acute distress HEAD: No signs of trauma, normocephalic, atraumatic EYES: PERRLA, EOMI, sclera anicteric, conjunctiva clear ENT: Auricles normal inspection, hearing grossly normal, nares patent, oropharynx clear without exudates. Moist mucosa NECK: Normal ROM, supple, no lymphadenopathy, JVD, or masses LUNGS: No distress, speaks full sentences, clear to auscultation bilaterally HEART: Regular rate and rhythm, normal S1 and S2, no murmurs, rubs or gallops, peripheral pulses normal and equal bilaterally. ABDOMEN: Soft, nontender, normoactive bowel sounds. No guarding, no rebound. No masses EXTREMITIES: Normal inspection, Normal range of motion, no edema. No clubbing or cyanosis. NEUROLOGICAL: Cranial nerves II through XII grossly intact. Normal speech, normal gait, no focal sensorimotor deficits SKIN: Warm, Dry, normal turgor, no rashes or lesions noted. ED Treatment Course - LABORATORY CBC & Chemistry Diagram: 12/17/19 16:18 12/17/19 16:18 Medical Decision Making - Medical Decision Making 12/17/19 16:16 Mr. Lutz is a 69 yo male w/ pmh as described who presents for evaluation of symptoms concerning for infection vs. stroke vs. other acute process. Will evaluate w/ labs and head CT for acute process. Given patient's recent flu infection; LP may be required if no elucidating findings. 12/17/19 17:40 CT significant for acute/subacute right temporal/occipital and right parietal cortical infarcts. Also Multiple small bilateral frontoparietal subcortical white matter hypodense foci possibly representing additional infarcts. Also hypodense focus w/in left basal ganglia. Patient will be admitted for stroke workup and neurological evaluation. 12/17/19 17:47 Patient admitted. Discharge - Discharge Information Problems reviewed: Yes Clinical Impression/Diagnosis: Stroke Qualifiers: CVA mechanism: unspecified Qualified Code(s): I63.9 - Cerebral infarction, unspecified - Admission Yes - Follow up/Referral Referrals: Tristan Fraire [Primary Care Provider] - - Patient Discharge Instructions - Post Discharge Activity
[2019-12-17 16:57] LABS: BASO % 0.7 % (0-2.0); EOS % 5.3 % (0-4.5); HEMATOCRIT 45.7 % (35.4-49); HEMOGLOBIN 15.3 GM/dL (11.7-16.9); LYMPH % 27.4 % (8-40); MCH 30.3 pg (25.7-33.7); MCHC 33.6 g/dl (32.0-35.9); MEAN CELL VOLUME 90.1 fl (80-96); MEAN PLT VOLUME 9.5 fl (7.5-11.1); MONO % 11.3 % (3.8-10.2); NEUT % 55.3 % (42.8-82.8); PLATELET COUNT 238 K/MM3 (134-434); RBC 5.07 M/mm3 (4.00-5.60); RDW 13.9 % (11.9-15.9); WHITE BLOOD COUNT 6.4 K/mm3 (4.0-10.0)
--- NOTE | 2019-12-17 16:59 | PDOC ---
Attending Attestation - Resident Resident Name: FanmaguecameronChristopher - ED Attending Attestation I have performed the following: I have examined & evaluated the patient, The case was reviewed & discussed with the resident, I agree w/resident's findings & plan, Exceptions are as noted - HPI HPI: 69-year-old male with history of hypertension, hyperlipidemia, GERD, diabetes, myocardial infarction in the past, recently treated for influenza A with Tamiflu presents with more than 24 hours of weakness and confusion - Physicial Exam PE: 12/17/19 16:56 Patient is awake and alert, well-nourished, no significant distress; normocephalic and atraumatic PERRLA, EOMI CTA, Cranial nerves II through XII are grossly intact; motor is five 5 x 4; no pronation drift; gait-stable +expresive aphasia; Patient is oriented to self and place. Patient does not know the date. - Medical Decision Making 12/17/19 16:57 69-year-old male with multiple comorbidities, recently treated for influenza with Tamiflu presents with confusion and expressive aphasia. Will rule out ischemic stroke. Patient not a TPA candidate given the low NIH stroke scale as well as the onset of symptoms more than 24 hours. If no intracranial hemorrhage noted, will administer aspirin. Will admit.
[2019-12-17 17:04] LABS: EPI CELLS 0.4 /HPF (0-5/HPF); HYALINE CASTS 1 /lpf (0-8); PH,URINE 5.5 (5.0-8.0); URINE APPEARANCE CLEAR; URINE BACTERIA 13.8 /hpf (NEGATIVE); URINE BILIRUBIN NEGATIVE (NEGATIVE); URINE COLOR YELLOW; URINE GLUCOSE (UA) NEGATIVE (NEGATIVE); URINE KETONE NEGATIVE (NEGATIVE); URINE LEUK ESTERASE NEGATIVE (NEGATIVE); URINE NITRITE NEGATIVE (NEGATIVE); URINE PROTEIN 1+ (NEGATIVE); URINE RBC 1 /hpf (0-4); URINE UROBILINOGEN 0.2 mg/dL (0.2-1.0); URINE WBC 0 /hpf (0-5)
[2019-12-17 17:09] LABS: INR 0.96 (0.83-1.09); PROTHROMBIN TIME (PATIENT) 11.3 SEC (9.7-13.0)
[2019-12-17 17:12] LABS: ACTIVATED PTT 32.8 SECONDS (25.2-36.5)
[2019-12-17 17:26] LABS: CHOLESTEROL 184 mg/dL (50-200); HDL CHOLESTEROL 41 mg/dL (40-60); LDL CHOLESTEROL (ONLY SJRH) 116 mg/dL (5-100); TRIGLYCERIDES 188 mg/dL (0-150)
[2019-12-17 17:30] LABS: ALBUMIN 3.7 g/dl (3.4-5.0); ALK PHOS 107 U/L (45-117); ANION GAP 7 MMOL/L (8-16); BILIRUBIN,TOTAL 0.5 mg/dL (0.2-1); BLOOD UREA NITROGEN 26.1 mg/dL (7-18); CALCIUM 8.8 mg/dL (8.5-10.1); CHLORIDE 104 mmol/L (98-107); CO2 26 mmol/L (21-32); CREATININE 1.9 mg/dL (0.55-1.3); GLUCOSE,RANDOM 107 mg/dL (74-106); POTASSIUM 4.1 mmol/L (3.5-5.1); SGOT/AST 35 U/L (15-37); SGPT/ALT 112 U/L (13-61); SODIUM 137 mmol/L (136-145); TOT PROT 7.2 g/dl (6.4-8.2)
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
[2019-12-17] MEDS ORDERED: ASPIRIN 81 MG CHEWABLE TABLETS PO ONE (17:47)
[2019-12-17] MEDS ORDERED: ATORVASTATIN CA 80 MG TABLET (FP) PO ONE (17:59)
[2019-12-17] MEDS ORDERED: CLOPIDOGREL BISULFATE 75 MG TABLET (FP) PO ONE (17:59)
[2019-12-17] MEDS ORDERED: SODIUM CHLORIDE 1,000 ML IV SCH ×2 (18:00→18:45)
--- NOTE | 2019-12-17 18:06 | CON.NEURO ---
Consult - Past Medical History Cardio/Vascular: Yes: CAD, HTN, Hyperlipdemia, [place] - Alcohol/Substance Use Hx Alcohol Use: No - Smoking History Smoking history: Never smoked Have you smoked in the past 12 months: No If you are a former smoker, when did you quit?: 30 years Home Medications - Allergies Allergies/Adverse Reactions: Allergies Allergy/AdvReac Type Severity Reaction Status Date / Time No Known Allergies Allergy Verified 05/02/19 03:51 - Home Medications Home Medications: Ambulatory Orders Carvedilol 25 mg PO BID 03/27/15 Losartan Potassium 100 mg PO DAILY 03/27/15 Pantoprazole Sodium [Protonix] 40 mg PO DAILY 03/27/15 Aspirin [ASA -] 81 mg PO DAILY 11/05/18 Albuterol Sulfate Inhaler - [Ventolin HFA Inhaler -] 1 - 2 inh PO Q6H #1 inhaler 02/26/19 Amlodipine Besylate 5 mg PO HS 05/02/19 Atorvastatin Ca [Lipitor] 40 mg PO HS tablet 05/02/19 metFORMIN HCL [Metformin HCl] 500 mg PO BID 05/02/19 Azithromycin Ivpb [Zithromax 500Mg Ivpb (Pre-Docked)] 250 mg IVPB DAILY #6 vial 12/10/19 Baclofen 5 mg PO TID #30 tablet 12/10/19 Oseltamivir Phosphate [Tamiflu] 75 mg PO BID #10 capsule 12/10/19 Physical Exam-Neuro Vital Signs: Vital Signs Temperature 97.8 F 12/17/19 15:15 Pulse Rate 67 12/17/19 15:15 Respiratory Rate 18 12/17/19 15:15 Blood Pressure 124/87 12/17/19 15:15 O2 Sat by Pulse Oximetry (%) 96 12/17/19 15:15 Labs: CBC, BMP 12/17/19 16:18 12/17/19 16:18 INR, PTT INR 0.96 (0.83-1.09) 12/17/19 16:18 Assessment/Plan cc confusion HPI 69 year old male hisory of htn,hld,dm,MN. Patient has flu and was being treated with tamiflu He was brought to hospital as he was confused . Patient has no history of seizure, there is no hemiparesis or speech dysarthria. Last seen well was on dec 16, 8.00 am. Patient also have history of mi and was taking aspirin and h eas not on statin. PMH as above. Allergy/AdvReac Type Severity Reaction Status Date / Time No Known Allergies Allergy Verified 05/02/19 03:51 Home Medications: Carvedilol 25 mg PO BID 03/27/15 Losartan Potassium 100 mg PO DAILY 03/27/15 Pantoprazole Sodium [Protonix] 40 mg PO DAILY 03/27/15 Aspirin [ASA -] 81 mg PO DAILY 11/05/18 Albuterol Sulfate Inhaler - [Ventolin HFA Inhaler -] 1 - 2 inh PO Q6H #1 inhaler 02/26/19 Amlodipine Besylate 5 mg PO HS 05/02/19 Atorvastatin Ca [Lipitor] 40 mg PO HS tablet 05/02/19 metFORMIN HCL [Metformin HCl] 500 mg PO BID 05/02/19 Azithromycin Ivpb [Zithromax 500Mg Ivpb (Pre-Docked)] 250 mg IVPB DAILY #6 vial 12/10/19 Baclofen 5 mg PO TID #30 tablet 12/10/19 Oseltamivir Phosphate [Tamiflu] 75 mg PO BID #10 capsule 12/10/19 SH,FH,ROS reviewed in chart NEUROLOGICAL EXAMINATION Alert oriented x 2, speech is normal , able to repeat vss, neck is supple eomi, there is left sided homonymous hemianospia no face asymmetry, pupils reactive no face asymmetry moving all extremity, no pronator drift nih score of 3 ct head showed right insurance premium auditor acute ischemic stroke Assessment Right insurance premium auditor stroke risk factor DM,HTN,HLD CAD in past, out of tpa window. patient has improved clinically Plan: PT, Speech dvt prophylaxis aspirin is given start plavix and statin - carotid ultrasound tele monitoring Home medication can debora resumed Thanking you so much Seamus Frey MD
[2019-12-17] MEDS ORDERED: ATORVASTATIN CA 80 MG TABLET (FP) ONE (18:21)
[2019-12-17] MEDS ORDERED: CLOPIDOGREL BISULFATE 75 MG TABLET (FP) ONE (18:21)
[2019-12-17] MEDS ORDERED: ASPIRIN 81 MG CHEWABLE TABLETS ONE (18:21)
[2019-12-17] MEDS ORDERED: CARVEDILOL 12.5 MG TABLET (FP) ONE (22:28)
[2019-12-17] MEDS: CARVEDILOL 25 MG TABLET (FP) PO SCH (22:35)
[2019-12-17] MEDS: INSULIN SLIDING SCALE (NOVOLOG) 1 VIAL SQ SCH (22:46)
--- NOTE | 2019-12-17 22:47 | HOSP ---
Subjective - Review of Symptoms Events since last encounter: Hospitalist Encounter Notified by Dr Amaya ED attending of Brain MRI report. Called placed to Dr Frey, discussed the findings of the brain MRI- no further orders Assessment: This is a 69 y/o man with a PMHx of HTN, HLD, GERD, DM. Admitted to Telemetry for Right WELT BUTTER HAND Ischemic Stroke Plan: Continue current regimen Pending Cardiology Consult Physical Examination Vital Signs: Vital Signs Temperature 97.8 F 12/17/19 15:15 Pulse Rate 70 12/17/19 19:40 Respiratory Rate 19 12/17/19 19:40 Blood Pressure 126/61 12/17/19 19:40 O2 Sat by Pulse Oximetry (%) 100 12/17/19 19:40 Labs: CBC, BMP 12/17/19 16:18 12/17/19 16:18
[2019-12-18 04:50] VITALS: BMI 33.0
[2019-12-18] MEDS: INSULIN SLIDING SCALE (NOVOLOG) 1 VIAL SQ SCH ×4 (06:19→21:35)
[2019-12-18 07:44] LABS: BASO % 0.3 % (0-2.0); EOS % 5.9 % (0-4.5); HEMATOCRIT 42.5 % (35.4-49); HEMOGLOBIN 14.5 GM/dL (11.7-16.9); LYMPH % 25.9 % (8-40); MCH 30.7 pg (25.7-33.7); MCHC 34.2 g/dl (32.0-35.9); MEAN CELL VOLUME 89.9 fl (80-96); MEAN PLT VOLUME 9.1 fl (7.5-11.1); MONO % 9.2 % (3.8-10.2); NEUT % 58.7 % (42.8-82.8); PLATELET COUNT 225 K/MM3 (134-434); RBC 4.73 M/mm3 (4.00-5.60); RDW 13.3 % (11.9-15.9); WHITE BLOOD COUNT 5.7 K/mm3 (4.0-10.0)
[2019-12-18 08:19] LABS: ALBUMIN 3.4 g/dl (3.4-5.0); BILIRUBIN,TOTAL 0.6 mg/dL (0.2-1); BLOOD UREA NITROGEN 21.2 mg/dL (7-18); CALCIUM 8.7 mg/dL (8.5-10.1); CREATININE 1.8 mg/dL (0.55-1.3); MAGNESIUM 2.4 mg/dL (1.8-2.4); POTASSIUM 4.1 mmol/L (3.5-5.1)
--- NOTE | 2019-12-18 09:08 | PN ---
Progress Note (short form) - Note Progress Note: 69 year old male hisory of htn,hld,dm,[place]. Patient has flu and was being treated with tamiflu He was brought to hospital as he was confused . Patient has no history of seizure, there is no hemiparesis or speech dysarthria. Last seen well was on dec 16, 8.00 am. Patient also have history of mi and was taking aspirin and h eas not on statin. His speech has improved and he is on plavix and high dose of statin. 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 patient has improved clinically and on mri he has bi hemispheric stroke Plan: PT, Speech dvt prophylaxis continue plavix and statin - carotid ultrasound was unremarkable tele monitoring spoke to [employer]IC [employer] TECHNICIAN last night and suggested cardiology consult for YADIRA and loop recording Thanking you so much Seamus Frey MD
[2019-12-18] MEDS ORDERED: ASPIRIN 81 MG CHEWABLE TABLETS PO SCH (10:00)
[2019-12-18] MEDS ORDERED: LOSARTAN POTASSIUM 50 MG TABLET (FP) PO SCH (10:00)
[2019-12-18] MEDS: CARVEDILOL 25 MG TABLET (FP) PO SCH ×2 (10:56→21:35)
[2019-12-18] MEDS: CLOPIDOGREL BISULFATE 75 MG TABLET (FP) PO SCH (10:56)
[2019-12-18] MEDS: amLODIPine BESYLATE 5 MG TABLET (FP) PO SCH (10:56)
[2019-12-18] MEDS: PANTOPRAZOLE 40 MG TABLET PO SCH (10:56)
--- NOTE | 2019-12-18 11:25 | CONSULT ---
Admitting History and Physical - Primary Care Physician PCP: Sathya Barron - Admission History of Present Illness: Per EMR- Patient is a 69 year old male with a significant past medical history of hypertension, hyperlipidemia, GERD, diabetes, and NM. Patient was brought into the ED today after he was noted to be confused, with "erratic" behaviour per . is at the bedside and provided most of the history. Per , patient woke up this morning at 0230 a.m. and was restless and kept repeating himself. He appeared confused to her telling her that is is 0630 a.m. even though he was staring at the digital clock in front of him. She noted that he was slurring his words. 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 At home, she noticed that his ambulation was unsteady and so she called her friend who is an RN who advised her to bring him in to the hospital for evaluation. Patient recently diagnosed with the flu last week and has completed tamiflu. He reports no fevers at home and that his flu symptoms have resolved. In the ED a head CT revealed an acute/subacute stroke. carotid ultrasound unremarkable mri of aldo showed right systems security consultant and left mca acute ischemic lesion Limitations to Obtaining History: Clinical Condition (anomia, word errors eg "safety pin for paper clip", September...December.. Hol, then cued to retrieve November) - Past Medical History Cardiovascular: Yes: CAD, HTN, Hyperlipdemia, NM - Smoking History Smoking history: Former smoker Have you smoked in the past 12 months: No If you are a former smoker, when did you quit?: in the 1970s - Alcohol/Substance Use Hx Alcohol Use: Yes (1 beer/month) - Social History Occupation: Retired from [employer] History - Admission Reason For Visit: CVA - Diagnostics CT Scan: Report Reviewed (head ct: acute/subacute right temporal/occipital and right parietal cortical infarcts. multiple small bilateral frontoparietal subcortical white matter hypodense foci possibly representing additional infarcts. Also hypodense focus w/in left basal ganglia.) MRI: Report Reviewed (mri of aldo showed right systems security consultant and left mca acute ischemic lesion) - General Mental Status: Alert and Oriented (errors but seem to be sec to mild Aphasia), Awake and Alert, Able to Follow Commands Attention: Intact Ability to Follow Directions: Good Head/Neck Control: Good - Hearing Hearing: Normal Speech Evaluation - Communication Primary Language: SURINAMESE Communication: Yes: Aphasia Oral Expression Ability: Yes: Mild Impairment - Speech Production Able to Make Needs Known: Yes: WNL Intelligibility: Yes: WNL - Speech Characteristics Voice Loudness: Normal Voice Pitch: Yes: Normal Voice Phonatory-based Quality: Yes: Normal Speech Pattern: Normal Speech Clarity: < 100% Nasal Resonance: Normal Articulation: Yes: Precise - Language/Auditory Comprehension Observation: Able to respond to yes/no queries: Yes, Yes/No Confusion: No, Comprehends Conversational Speech: Yes - Language/Verbal Expression Aphasia: Yes: Anomia, Paraphrasic Errors Able to Communicate Wants and Needs: Yes: WNL Functional Communication Status: Yes: WNL Aware of Errors: No Attempts to Correct Errors: No - Memory/Perception Hemaniopsia: Yes: Right (Difficulty taking cookie from me on his right. Unable to read- seems to be related to possible field cut on right) - Swallow Evaluation/Bedside Assessment Current Nutritional Intake: Buckley Textured Liquids, Other (chopped) Oral Secretions: Yes: WFL Dentition: Yes: Missing Teeth Facial Symmetry at Rest: Facial Droop Right Facial Symmetry on Retraction: Symmetrical Facial Movement: Controlled Against Resistance Opening: Normal Against Resistance Closing: Normal Pucker Lips: Normal Smile: Normal Lingual Movement: Normal, Symmetric Lingual Speed of Movement: Normal Lingual Movement Strgth Against Opposition: Normal Lingual Movement Characteristics: Normal Velopharyngeal Movement: Normal Laryngeal Elevation: WFL Laryngeal Movement: Able to Palpate Rate of Intake: WFL Bolus Size: WFL Labial Seal: WFL Chewing: WFL Oral Prep Time: WFL A-P Transit: WFL Pocketing: None Timing of Swallow: WFL Coughing/Throat Clear: No Change in Voice: No Recommendations - Speech Evaluation, Impression/Plan Impression: Mild anomia with word retrieval errors. 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 Pt became tearful when he was unable to perform tasks eg crying. Good prognosis for recovery of speech/language deficits. Pt would benefit from speech tx upon d/c if he does not spontaneously recover - Dysphagia Impressions/Plan Swallowing Skills: WFL Dysphagia Impressions: No Impairment *Silent aspiration: cannot be R/O at bedside Dysphagia Treatment Plan: Elevate HOB during feed, OOB for meals, OOB for 1 h. after meals Recommendations: Modified Barium Swallow (If cough, congestion, fever), Other ( Monitor po tolerance) - Recommendations Diet Consistency: Regular Medication Administration: Whole with water Liquids: Thin Liquids
--- NOTE | 2019-12-18 11:37 | ECHO ---
Name: AGUSTIN MELTON, JR Exam:Adult Echocardiogram Study Date: 12/18/2019 09:43 AM Age: 69 yrs Height: 70 in Weight: 210 lb BSA: 2.1 m2 MMode/2D Measurements & Calculations IVSd: 1.5 cm Ao root diam: 3.0 cm LVIDd: 3.3 cm LA dimension: 3.2 cm LVIDs: 2.5 cm LVPWd: 1.3 cm LVPWs: 1.7 cm EDV(Teich): 45.2 ml ESV(Teich): 22.2 ml LAV (MOD-bp): 37.0 ml TAPSE: 2.0 cm RV S Anselmo: 14.1 cm/sec Doppler Measurements & Calculations MV E max anselmo: 44.9 cm/sec Ao V2 max: 133.8 cm/sec MV A max anselmo: 87.9 cm/sec Ao max P.2 mmHg MV E/A: 0.51 MV dec time: 0.15 sec LV V1 max P.4 mmHg PA V2 max: 113.1 cm/sec LV V1 max: 92.8 cm/sec PA max P.1 mmHg Med Peak E' Anselmo: 5.0 cm/sec Med E/e': 8.9 Lat Peak E' Anselmo: 8.9 cm/sec Lat E/e': 5.1 Procedure A complete two-dimensional transthoracic echocardiogram was performed (2D, M-mode, Doppler and color flow Doppler). Left Ventricle The left ventricular size, thickness and function are normal. The left ventricular ejection fraction is normal. Ejection Fraction = 55-60%. The left ventricular wall motion is normal. Right Ventricle The right ventricle is normal in size and function. Atria Normal left and right atrial size and function. Mitral Valve There is no mitral regurgitation noted. Tricuspid Valve There is trace tricuspid regurgitation. There was insufficient TR detected to calculate RV systolic p ressure. Aortic Valve No hemodynamically significant valvular aortic stenosis. No aortic regurgitation is present. Pulmonic Valve There is no pulmonic valvular regurgitation. Great Vessels The aortic root is normal size. Pericardium/Pleura There is no pericardial effusion. Interpretation Summary The left ventricular size, thickness and function are normal The right ventricle is normal in size and function. There is trace tricuspid regurgitation. MD Ayaz Marlow 12/18/2019 11:36 AM
--- NOTE | 2019-12-18 11:45 | CON.CARD ---
Cardiology Consult (text) - Consultation Consultation Note: cc: ams, slurred speech hpi: 69 m hx htn, ckd, dm, mi hld, here with ams, slurred speech. No cp sob palps dizzy loc pnd orthopnea le edema. Found to have acute cva. Feeling better. pmh: per hpi psh: none social: no tob fam: no premature cad,scd ros: per hpi; all others nl meds: Home Medications Medication Instructions Recorded Carvedilol 25 mg PO DAILY 03/27/15 Losartan Potassium 100 mg PO DAILY 03/27/15 Pantoprazole Sodium [Protonix] 40 mg PO DAILY 03/27/15 Aspirin [ASA -] 81 mg PO DAILY 11/05/18 Albuterol Sulfate Inhaler - 1 - 2 inh PO Q6H #1 inhaler 02/26/19 [Ventolin HFA Inhaler -] Amlodipine Besylate 5 mg PO DAILY 05/02/19 Atorvastatin Ca [Lipitor] 40 mg PO HS tablet 05/02/19 metFORMIN HCL [Metformin HCl] 500 mg PO BID 05/02/19 Azithromycin Ivpb [Zithromax 500Mg 250 mg IVPB DAILY #6 vial 12/10/19 Ivpb (Pre-Docked)] Baclofen 5 mg PO TID #30 tablet 12/10/19 Oseltamivir Phosphate [Tamiflu] 75 mg PO BID #10 capsule 12/10/19 Ibuprofen [Advil -] 600 mg PO DAILY PRN MDD 600 mg 12/18/19 pe: Vital Signs Period Temp Pulse Resp BP Sys/Oneal Pulse Ox Last 24 Hr 97.6 F-98.7 F 65-83 18-19 124-153/61-87 96-100 nad no jvd rrr s1s2 no mrg cta bl nl eff aao3 no le e/c/c abd nt nd pos bs no jaundice diaphoresis pos dp pt no carotid bruits Laboratory Last Values WBC 5.7 K/mm3 (4.0-10.0) 12/18/19 06:05 RBC 4.73 M/mm3 (4.00-5.60) 12/18/19 06:05 Hgb 14.5 GM/dL (11.7-16.9) 12/18/19 06:05 Hct 42.5 % (35.4-49) 12/18/19 06:05 MCV 89.9 fl (80-96) 12/18/19 06:05 MCH 30.7 pg (25.7-33.7) 12/18/19 06:05 MCHC 34.2 g/dl (32.0-35.9) 12/18/19 06:05 RDW 13.3 % (11.9-15.9) 12/18/19 06:05 Plt Count 225 K/MM3 (134-434) 12/18/19 06:05 MPV 9.1 fl (7.5-11.1) 12/18/19 06:05 Absolute Neuts (auto) 3.4 K/mm3 (1.5-8.0) 12/18/19 06:05 Neutrophils % 58.7 % (42.8-82.8) 12/18/19 06:05 Lymphocytes % 25.9 % (8-40) 12/18/19 06:05 Monocytes % 9.2 % (3.8-10.2) 12/18/19 06:05 Eosinophils % 5.9 % (0-4.5) H 12/18/19 06:05 Basophils % 0.3 % (0-2.0) 12/18/19 06:05 Nucleated RBC % 0 % (0-0) 12/18/19 06:05 PT with INR 11.30 SEC (9.7-13.0) 12/17/19 16:18 INR 0.96 (0.83-1.09) 12/17/19 16:18 PTT (Actin FS) 32.8 SECONDS (25.2-36.5) 12/17/19 16:18 Sodium 137 mmol/L (136-145) 12/18/19 06:05 Potassium 4.1 mmol/L (3.5-5.1) 12/18/19 06:05 Chloride 102 mmol/L (98-107) 12/18/19 06:05 Carbon Dioxide 27 mmol/L (21-32) 12/18/19 06:05 Anion Gap 8 MMOL/L (8-16) 12/18/19 06:05 BUN 21.2 mg/dL (7-18) H 12/18/19 06:05 Creatinine 1.8 mg/dL (0.55-1.3) H 12/18/19 06:05 Est GFR (CKD-EPI)AfAm 43.54 12/18/19 06:05 Est GFR (CKD-EPI)NonAf 37.56 12/18/19 06:05 POC Glucometer 125 UNITS (80-120) 12/18/19 10:58 Random Glucose 193 mg/dL (74-106) H 12/18/19 06:05 Hemoglobin A1c % 6.8 % (4.2-6.3) H 12/18/19 06:05 Calcium 8.7 mg/dL (8.5-10.1) 12/18/19 06:05 Magnesium 2.4 mg/dL (1.8-2.4) 12/18/19 06:05 Total Bilirubin 0.6 mg/dL (0.2-1) 12/18/19 06:05 AST 29 U/L (15-37) 12/18/19 06:05 ALT 96 U/L (13-61) H 12/18/19 06:05 Alkaline Phosphatase 102 U/L (45-117) 12/18/19 06:05 Creatine Kinase 176 U/L (26-308) 12/17/19 16:18 Creatine Kinase Index 0.6 % (0.0-5.0) 12/17/19 16:18 CK-MB (CK-2) 1.1 ng/mL (0.5-3.6) 12/17/19 16:18 Troponin I < 0.02 ng/ml (0.00-0.05) 12/18/19 04:00 Total Protein 7.0 g/dl (6.4-8.2) 12/18/19 06:05 Albumin 3.4 g/dl (3.4-5.0) 12/18/19 06:05 Triglycerides 188 mg/dL (0-150) H 12/17/19 16:18 Cholesterol 184 mg/dL (50-200) 12/17/19 16:18 Total LDL Cholesterol 116 mg/dL (5-100) H 12/17/19 16:18 HDL Cholesterol 41 mg/dL (40-60) 12/17/19 16:18 Urine Color Yellow 12/17/19 16:18 Urine Appearance Clear 12/17/19 16:18 Urine pH 5.5 (5.0-8.0) 12/17/19 16:18 Ur Specific Mason 1.011 (1.010-1.035) 12/17/19 16:18 Urine Protein 1+ (NEGATIVE) H 12/17/19 16:18 Urine Glucose (UA) Negative (NEGATIVE) 12/17/19 16:18 Urine Ketones Negative (NEGATIVE) 12/17/19 16:18 Urine Blood Negative (NEGATIVE) 12/17/19 16:18 Urine Nitrite Negative (NEGATIVE) 12/17/19 16:18 Urine Bilirubin Negative (NEGATIVE) 12/17/19 16:18 Urine Urobilinogen 0.2 mg/dL (0.2-1.0) 12/17/19 16:18 Ur Leukocyte Esterase Negative (NEGATIVE) 12/17/19 16:18 Urine WBC (Auto) 0 /hpf (0-5) 12/17/19 16:18 Urine RBC (Auto) 1 /hpf (0-4) 12/17/19 16:18 Urine Casts (Auto) 1 /lpf (0-8) 12/17/19 16:18 U Epithel Cells (Auto) 0.4 /HPF (0-5/HPF) 12/17/19 16:18 Urine Bacteria (Auto) 13.8 /hpf (NEGATIVE) 12/17/19 16:18 Blood Type O POSITIVE 12/17/19 19:30 Antibody Screen Negative 12/17/19 19:30 echo 11/2019: nl lv/rv, no sig valve path ecg: sr, nl intervals, lat twis (old, seen on 2017 ecg as well), no st changes cxr: clear lungs tele: sr, artifact carotids 11/2019: no sig stenosis a/p: 69 m hx htn, ckd, dm, mi hld, here with ams, slurred speech. cva: -carotids, echo, tele benign -should f/u with his outpt cardio dr john for extended event monitoring or loop recorder to r/o occult afib. -plans per neuro htn: -cont coreg, norvasc ckd: -cr near baseline mi: -pt reports he was told he had silent mi 20+ yrs ago. No signs acs. No anginal sxs. Echo with nl lvef. Cont statin, plavix, bb. hld: -cont statin
[2019-12-18] MEDS ORDERED: PT OWN MED DRAWER 7, Y5N ONE ×2 (13:33→21:26)
[2019-12-18] MEDS: BACLOFEN 10 MG TABLET (FP) PO SCH ×2 (13:37→21:36)
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
--- NOTE | 2019-12-18 15:12 | EKG ---
Test Reason : Blood Pressure : / mmHG Vent. Rate : 068 BPM Atrial Rate : 068 BPM P-R Int : 168 ms QRS Dur : 102 ms QT Int : 396 ms P-R-T Axes : 045 -39 105 degrees QTc Int : 421 ms NORMAL SINUS RHYTHM LEFT AXIS DEVIATION INCOMPLETE RIGHT BUNDLE BRANCH BLOCK T WAVE ABNORMALITY, CONSIDER LATERAL ISCHEMIA ABNORMAL ECG WHEN COMPARED WITH ECG OF 11-DEC-2019 04:48, INCOMPLETE RIGHT BUNDLE BRANCH BLOCK IS NOW PRESENT NONSPECIFIC T WAVE ABNORMALITY NOW EVIDENT IN ANTERIOR LEADS Confirmed by SRINATH TAMEZ MD ([id number]) on 12/18/2019 3:11:58 PM Referred By: Confirmed By:SRINATH TAMEZ MD
[2019-12-18] MEDS: HEPARIN NA (PORCINE) 5,000 UNITS/ML 1ML VIAL SQ SCH (21:35)
[2019-12-18] MEDS: ATORVASTATIN CA 80 MG TABLET (FP) PO SCH (21:35)
[2019-12-19] MEDS: BACLOFEN 10 MG TABLET (FP) PO SCH ×3 (05:52→21:03)
[2019-12-19] MEDS ORDERED: PT OWN MED DRAWER 7, Y5N ONE ×3 (06:13→13:12)
[2019-12-19] MEDS: INSULIN SLIDING SCALE (NOVOLOG) 1 VIAL SQ SCH ×4 (06:29→21:04)
[2019-12-19 06:41] LABS: BASO % 0.4 % (0-2.0); EOS % 6.4 % (0-4.5); HEMATOCRIT 42.3 % (35.4-49); HEMOGLOBIN 14.5 GM/dL (11.7-16.9); LYMPH % 24.8 % (8-40); MCH 30.8 pg (25.7-33.7); MCHC 34.4 g/dl (32.0-35.9); MEAN CELL VOLUME 89.5 fl (80-96); MONO % 12.6 % (3.8-10.2); NEUT % 55.8 % (42.8-82.8); PLATELET COUNT 239 K/MM3 (134-434); RBC 4.72 M/mm3 (4.00-5.60); RDW 13.5 % (11.9-15.9); WHITE BLOOD COUNT 5.4 K/mm3 (4.0-10.0)
[2019-12-19 07:22] LABS: ALBUMIN 3.4 g/dl (3.4-5.0); BILIRUBIN,TOTAL 0.7 mg/dL (0.2-1); BLOOD UREA NITROGEN 17.5 mg/dL (7-18); CREATININE 1.6 mg/dL (0.55-1.3); POTASSIUM 4.5 mmol/L (3.5-5.1); TOT PROT 6.6 g/dl (6.4-8.2)
[2019-12-19] MEDS: CLOPIDOGREL BISULFATE 75 MG TABLET (FP) PO SCH (09:55)
[2019-12-19] MEDS: CARVEDILOL 25 MG TABLET (FP) PO SCH ×2 (09:55→21:03)
[2019-12-19] MEDS: PANTOPRAZOLE 40 MG TABLET PO SCH (09:55)
[2019-12-19] MEDS: amLODIPine BESYLATE 5 MG TABLET (FP) PO SCH (09:55)
[2019-12-19] MEDS: HEPARIN NA (PORCINE) 5,000 UNITS/ML 1ML VIAL SQ SCH ×2 (09:55→21:04)
[2019-12-19] MEDS ORDERED: ACETAMINOPHEN 325 MG TABLET (FP) PO ONE ×2 (09:59→20:49)
--- NOTE | 2019-12-19 10:18 | PN ---
Progress Note (short form) - Note Progress Note: 69 year old male hisory of htn,hld,dm,NH. Patient has flu and was being treated with tamiflu He was brought to hospital as he was confused . Patient has no history of seizure, there is no hemiparesis or speech dysarthria. Last seen well was on dec 16, 8.00 am. Patient also have history of mi and was taking aspirin and h eas not on statin. His speech has improved and he is on plavix and high dose of statin. His mri of brain showed bihemispheric ischemic lesion, no new complain , his speech is bteter. 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 patient has improved clinically and on mri he has bi hemispheric stroke , complain of mild headhace Plan: PT, Speech dvt prophylaxis continue plavix and statin - carotid ultrasound was unremarkable cardiology consult appreciated - tylenol prn for headache - wishes to go home, advice to observe over the weekend Thanking you so much Seamus Frey MD
--- NOTE | 2019-12-19 10:58 | PN ---
Progress Note, ENVIRONMENTAL AID - Note Progress Note: Selected Entries 12/18/19 12/18/19 12/18/19 03:00 06:00 10:21 Breakfast 75% Lunch Supper Temperature 97.6 F 98.7 F 12/18/19 12/18/19 12/18/19 14:02 18:00 21:00 Breakfast Lunch 100% Supper Temperature 98.0 F 98.6 F 98.6 F 12/18/19 12/19/19 12/19/19 22:29 02:00 06:00 Breakfast Lunch Supper 100% Temperature 98.1 F 97.9 F 12/19/19 12/19/19 09:57 10:11 Breakfast 100% Lunch Supper Temperature 97.3 F L Laboratory Tests 12/19/19 05:35 WBC 5.4 Pt seems improved. Pt's requested I not ask him questions today as he was sad yesterday. Further language/perceptual w/u deferred. Tolerating diet.
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
--- NOTE | 2019-12-19 14:47 | PN ---
Progress Note (short form) - Note Progress Note: s:no cp sob palps dizzy Current Medications Generic Name Dose Route Start Last Admin Trade Name Ilia PRN Reason Stop Dose Admin Amlodipine Besylate 5 mg 12/18/19 10:00 12/19/19 09:55 Norvasc - PO 5 mg DAILY KRYS Administration Atorvastatin Calcium 80 mg 12/18/19 22:00 12/18/19 21:35 Lipitor - PO 80 mg HS KRYS Administration Baclofen 5 mg 12/18/19 14:00 12/19/19 13:15 Lioresal - PO 5 mg TID KRYS Administration Carvedilol 25 mg 12/17/19 22:00 12/19/19 09:55 Coreg - PO 25 mg BID KRYS Administration Clopidogrel Bisulfate 75 mg 12/18/19 10:00 12/19/19 09:55 Plavix - PO 75 mg DAILY KRYS Administration Heparin Sodium (Porcine) 5,000 unit 12/18/19 22:00 12/19/19 09:55 Heparin - SQ 5,000 unit BID KRYS Administration Insulin Aspart 1 vial 12/17/19 22:00 12/19/19 12:00 Novolog Vial Sliding Scale - SQ Not Given ACHS [facility] Protocol Pantoprazole Sodium 40 mg 12/18/19 10:00 12/19/19 09:55 Protonix - PO 40 mg DAILY KRYS Administration Vital Signs Period Temp Pulse Resp BP Sys/Oneal Pulse Ox Last 24 Hr 97.3 F-98.6 F 62-70 16-20 138-157/62-84 97-98 nad no jvd rrr s1s2 no mrg cta bl nl eff aao3 no le e/c/c abd nt nd pos bs no jaundice diaphoresis CBC, BMP 12/19/19 05:35 12/19/19 05:35 echo 11/2019: nl lv/rv, no sig valve path ecg: sr, nl intervals, lat twis (old, seen on 2017 ecg as well), no st changes cxr: clear lungs tele: sr carotids 11/2019: no sig stenosis a/p: 69 m hx htn, ckd, dm, mi hld, here with ams, slurred speech. cva: -carotids, echo, tele benign -should f/u with his outpt cardio dr john for extended event monitoring or loop recorder to r/o occult afib. -further plans per neuro htn: -cont coreg, norvasc ckd: -cr near baseline mi: -pt reports he was told he had silent mi 20+ yrs ago. No signs acs. No anginal sxs. Echo with nl lvef. Cont statin, plavix, bb. hld: -cont statin
[2019-12-19] MEDS ORDERED: POLYETHYLENE GLYCOL 3350 119 GM BTL PO ONE (15:27)
[2019-12-19] MEDS: ATORVASTATIN CA 80 MG TABLET (FP) PO SCH (21:03)
[2019-12-20] MEDS: BACLOFEN 10 MG TABLET (FP) PO SCH ×3 (06:08→22:19)
[2019-12-20] MEDS: INSULIN SLIDING SCALE (NOVOLOG) 1 VIAL SQ SCH ×4 (06:08→22:19)
[2019-12-20 07:18] LABS: BASO % 0.4 % (0-2.0); EOS % 6.4 % (0-4.5); HEMATOCRIT 42.9 % (35.4-49); HEMOGLOBIN 14.7 GM/dL (11.7-16.9); MCH 30.7 pg (25.7-33.7); MCHC 34.2 g/dl (32.0-35.9); MEAN CELL VOLUME 89.8 fl (80-96); MEAN PLT VOLUME 9.1 fl (7.5-11.1); MONO % 13.1 % (3.8-10.2); NEUT % 51.1 % (42.8-82.8); PLATELET COUNT 264 K/MM3 (134-434); RBC 4.77 M/mm3 (4.00-5.60); RDW 13.4 % (11.9-15.9)
[2019-12-20 07:51] LABS: ALBUMIN 3.4 g/dl (3.4-5.0); BILIRUBIN,TOTAL 0.6 mg/dL (0.2-1); BLOOD UREA NITROGEN 21.3 mg/dL (7-18); CALCIUM 9.2 mg/dL (8.5-10.1); CREATININE 1.6 mg/dL (0.55-1.3); MAGNESIUM 2.1 mg/dL (1.8-2.4); POTASSIUM 4.8 mmol/L (3.5-5.1); TOT PROT 6.9 g/dl (6.4-8.2)
--- NOTE | 2019-12-20 08:55 | PN ---
Progress Note, Physician Chief Complaint: BP mildly elevated Denies CP, SOB, palps TELE: NSR, artifact. - Current Medication List Current Medications: Active Medications Amlodipine Besylate (Norvasc -) 10 mg PO DAILY [facility] Atorvastatin Calcium (Lipitor -) 80 mg PO HS [facility] Last Admin: 12/19/19 21:03 Dose: 80 mg Baclofen (Lioresal -) 5 mg PO TID [facility] Last Admin: 12/20/19 06:08 Dose: 5 mg Carvedilol (Coreg -) 25 mg PO BID [facility] Last Admin: 12/19/19 21:03 Dose: 25 mg Clopidogrel Bisulfate (Plavix -) 75 mg PO DAILY [facility] Last Admin: 12/19/19 09:55 Dose: 75 mg Heparin Sodium (Porcine) (Heparin -) 5,000 unit SQ BID [facility] Last Admin: 12/19/19 21:04 Dose: 5,000 unit Insulin Aspart (Novolog Vial Sliding Scale -) 1 vial SQ ACHS [facility]; Protocol Last Admin: 12/20/19 06:08 Dose: Not Given Pantoprazole Sodium (Protonix -) 40 mg PO DAILY [facility] Last Admin: 12/19/19 09:55 Dose: 40 mg - Objective Vital Signs: Vital Signs Temperature 97.8 F 12/20/19 06:09 Pulse Rate 61 12/20/19 06:09 Respiratory Rate 16 12/20/19 06:09 Blood Pressure 162/85 12/20/19 06:09 O2 Sat by Pulse Oximetry (%) 98 12/19/19 21:00 Constitutional: Yes: No Distress, Calm Cardiovascular: Yes: Regular Rate and Rhythm Respiratory: Yes: CTA Bilaterally Gastrointestinal: Yes: Soft Edema: No Peripheral Pulses WNL: Yes Neurological: Yes: Alert, Oriented Labs: CBC, BMP 12/20/19 06:15 12/20/19 06:15 INR, PTT INR 0.96 (0.83-1.09) 12/17/19 16:18 Microbiology 12/18/19 06:10 Blood - Peripheral Venous Blood Culture - Preliminary NO GROWTH OBTAINED AFTER 48 HOURS, INCUBATION TO CONTINUE FOR 3 DAYS. 12/18/19 06:05 Blood - Peripheral Venous Blood Culture - Preliminary NO GROWTH OBTAINED AFTER 48 HOURS, INCUBATION TO CONTINUE FOR 3 DAYS. Laboratory Tests 12/17/19 12/20/19 12/20/19 16:18 06:15 06:15 WBC 5.0 Hgb 14.7 Plt Count 264 Sodium 138 Potassium 4.8 BUN 21.3 H Creatinine 1.6 H Albumin 3.4 Total LDL Cholesterol 116 H - ....Imaging EKG: Image Reviewed Assessment/Plan DATA: echo 11/2019: nl lv/rv, no sig valve path ecg: sr, nl intervals, lat twis (old, seen on 2017 ecg as well), no st changes cxr: clear lungs tele: sr carotids 11/2019: no sig stenosis IMP/PLAN: 69 m hx htn, ckd, dm, mi hld, here with ams, slurred speech. cva: -carotids, echo, tele benign -should f/u with his outpt cardio dr john for extended event monitoring or loop recorder to r/o occult afib. -further plans per neuro htn: -cont coreg. Agree with titrating Amlodipine for goal BP < 140/90 ckd: -cr near baseline CAD: -pt reports he was told he had silent mi 20+ yrs ago. No signs acs. No anginal sxs. Echo with nl lvef. Cont statin, plavix, bb. hld: -cont statin. LDL goal 70mg/dl. Cont high intensity statin
[2019-12-20] MEDS ORDERED: PT OWN MED DRAWER 7, Y5N ONE ×2 (09:21→22:14)
[2019-12-20] MEDS: PANTOPRAZOLE 40 MG TABLET PO SCH (09:29)
[2019-12-20] MEDS: amLODIPine BESYLATE 10 MG TABLET (FP) PO SCH (09:29)
[2019-12-20] MEDS: CLOPIDOGREL BISULFATE 75 MG TABLET (FP) PO SCH (09:29)
[2019-12-20] MEDS: HEPARIN NA (PORCINE) 5,000 UNITS/ML 1ML VIAL SQ SCH ×2 (09:29→22:20)
[2019-12-20] MEDS: CARVEDILOL 25 MG TABLET (FP) PO SCH ×2 (09:29→22:19)
[2019-12-20] MEDS ORDERED: LOSARTAN POTASSIUM 50 MG TABLET (FP) PO ONE (12:19)
--- NOTE | 2019-12-20 12:20 | PN ---
Physical Exam: SUBJECTIVE: Patient seen and examined, feels better today and without headaches. at the bedside. OBJECTIVE: cardiac meds reconciled: patient is on amlodopine 5, losartan 100/hctz 12.5, coreq 25 bid Patient is a 69 year old male with a significant past medical history of hypertension, hyperlipidemia, GERD, diabetes, and [place]. Patient was brought into the ED on 12/17/19 after he was noted to be confused, with "erratic" behaviour per . A head CT done in the ED revealed an acute/subacute stroke. Brain MRI showed acute infarct noted in the left frontal central semiovale, punctate infarct in the left cingulate gyrus. Vital Signs Period Temp Pulse Resp BP Sys/Oneal Pulse Ox Last 24 Hr 97.3 F-98.6 F 61-70 16-19 138-174/70-85 98-98 GENERAL: Awake, alert, forgetful, in no acute distress. slurred speech initially, now improving. HEAD: Normal with no signs of trauma. EYES: Pupils equal, round and reactive to light, extraocular movements intact, sclera anicteric, conjunctiva clear. No lid lag. EARS, NOSE, THROAT: Ears normal, nares patent, oropharynx clear without exudates. Moist mucous membranes. NECK: Normal range of motion, supple without lymphadenopathy, JVD, or masses. LUNGS: clear to auscultation HEART: Regular rate and rhythm ABDOMEN: Soft, nontender, not distended, normoactive bowel sounds MUSCULOSKELETAL: Normal range of motion at all joints. No bony deformities or tenderness. No CVA tenderness. UPPER EXTREMITIES: No peripheral edema. LOWER EXTREMITIES: No peripheral edema. NEUROLOGICAL: clear speech, mild left facial droop, left upper arm 4/5, left left leg 4/5, right arm 5/5, right leg 5/5 Laboratory Results - last 24 hr 12/19/19 12/19/19 12/20/19 17:04 21:01 06:04 WBC RBC Hgb Hct MCV MCH MCHC RDW Plt Count MPV Absolute Neuts (auto) Neutrophils % Lymphocytes % Monocytes % Eosinophils % Basophils % Nucleated RBC % Sodium Potassium Chloride Carbon Dioxide Anion Gap BUN Creatinine Est GFR (CKD-EPI)AfAm Est GFR (CKD-EPI)NonAf POC Glucometer 140 170 135 Random Glucose Calcium Magnesium Total Bilirubin AST ALT Alkaline Phosphatase Total Protein Albumin 12/20/19 12/20/19 12/20/19 06:15 06:15 11:14 WBC 5.0 RBC 4.77 Hgb 14.7 Hct 42.9 MCV 89.8 MCH 30.7 MCHC 34.2 RDW 13.4 Plt Count 264 MPV 9.1 Absolute Neuts (auto) 2.6 Neutrophils % 51.1 Lymphocytes % 29.0 Monocytes % 13.1 H Eosinophils % 6.4 H Basophils % 0.4 Nucleated RBC % 0 Sodium 138 Potassium 4.8 Chloride 104 Carbon Dioxide 29 Anion Gap 5 L BUN 21.3 H Creatinine 1.6 H Est GFR (CKD-EPI)AfAm 50.20 Est GFR (CKD-EPI)NonAf 43.31 POC Glucometer 139 Random Glucose 148 H Calcium 9.2 Magnesium 2.1 Total Bilirubin 0.6 AST 27 ALT 76 H Alkaline Phosphatase 104 Total Protein 6.9 Albumin 3.4 Active Medications Generic Name Dose Route Start Last Admin Trade Name Freq PRN Reason Stop Dose Admin Amlodipine Besylate 10 mg 12/20/19 10:00 12/20/19 09:29 Norvasc - PO 10 mg DAILY KRYS Administration Atorvastatin Calcium 80 mg 12/18/19 22:00 12/19/19 21:03 Lipitor - PO 80 mg HS KRYS Administration Baclofen 5 mg 12/18/19 14:00 12/20/19 06:08 Lioresal - PO 5 mg TID KRYS Administration Carvedilol 25 mg 12/17/19 22:00 12/20/19 09:29 Coreg - PO 25 mg BID KRYS Administration Clopidogrel Bisulfate 75 mg 12/18/19 10:00 12/20/19 09:29 Plavix - PO 75 mg DAILY KRYS Administration Heparin Sodium (Porcine) 5,000 unit 12/18/19 22:00 12/20/19 09:29 Heparin - SQ 5,000 unit BID KRYS Administration Insulin Aspart 1 vial 12/17/19 22:00 12/20/19 11:23 Novolog Vial Sliding Scale - SQ Not Given ACHS [facility] Protocol Losartan Potassium 100 mg 12/20/19 12:19 Cozaar - PO 12/20/19 12:20 ONCE ONE Pantoprazole Sodium 40 mg 12/18/19 10:00 12/20/19 09:29 Protonix - PO 40 mg DAILY KRYS Administration ASSESSMENT/PLAN: Problem List - Problems (1) Stroke Assessment/Plan: 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 speech has improved. On lipitor 80, plavix 75 patient has multiple risk factors for stroke that includes high cholesterol ( was on lipitor 40 at home but was not taking it), diabetes, CAD and hypertension. Speech improving since admission. Swallow evaluation completed and recommends regular diet with thin liquids. 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 hmga1c 6.8 Code(s): I63.9 - CEREBRAL INFARCTION, UNSPECIFIED Qualifiers: CVA mechanism: unspecified Qualified Code(s): I63.9 - Cerebral infarction, unspecified (2) Headache Assessment/Plan: resolved. Code(s): R51 - HEADACHE (3) Hypertension Assessment/Plan: on coreq, amlodopine, losartan Code(s): I10 - ESSENTIAL (PRIMARY) HYPERTENSION (4) Hyperlipidemia Assessment/Plan: elevated lipid panel. not taking home statin per continue lipitor 80mg daily Code(s): E78.5 - HYPERLIPIDEMIA, UNSPECIFIED (5) Bronchitis Assessment/Plan: recently treated with the flu, but continues to have a wet cough. no wheezing auscultated on today's exam. patient tolerating room air. chest xray negative for acute process. Code(s): J40 - BRONCHITIS, NOT SPECIFIED ACUTE OR CHRONIC (6) Hiccups Assessment/Plan: was on baclophen at home, hiccups resolved. Code(s): R06.6 - HICCOUGH (7) Influenza Code(s): J11.1 - FLU DUE TO UNIDENTIFIED INFLUENZA VIRUS W OTH RESP MANIFEST (8) Diabetes Assessment/Plan: hmga1c 6.8, controlled diabetes. bgms stable. Code(s): E11.9 - TYPE 2 DIABETES MELLITUS WITHOUT COMPLICATIONS (9) Morbid obesity Assessment/Plan: weight loss encouraged, nutritional evaluation as an outpatient. Code(s): E66.01 - MORBID (SEVERE) OBESITY DUE TO EXCESS CALORIES (10) CKD (chronic kidney disease) Assessment/Plan: creat close to baseline Code(s): N18.9 - CHRONIC KIDNEY DISEASE, UNSPECIFIED (11) DVT prophylaxis Assessment/Plan: heparin bid Code(s): Z29.9 - ENCOUNTER FOR PROPHYLACTIC MEASURES, UNSPECIFIED (12) Prophylactic measure Assessment/Plan: fen tolerating po monitor electrolytes per speech and swallow, can give regular diet with thin liquids full code Code(s): Z29.9 - ENCOUNTER FOR PROPHYLACTIC MEASURES, UNSPECIFIED Visit type - Emergency Visit Emergency Visit: Yes ED Registration Date: 12/17/19 Care time: The patient presented to the Emergency Department on the above date and was hospitalized for further evaluation of their emergent condition. - New Patient This patient is new to me today: No - Critical Care Critical Care patient: No - Discharge Referral Referred to [facility] No
[2019-12-20] MEDS: DOCUSATE SODIUM 100 MG CAPSULE (FP) PO SCH ×2 (16:20→22:20)
--- NOTE | 2019-12-20 16:57 | PN ---
Progress Note (short form) - Note Progress Note: 69 year old male hisory of htn,hld,dm,[place]. Patient has flu and was being treated with tamiflu He was brought to hospital as he was confused . Patient has no history of seizure, there is no hemiparesis or speech dysarthria. Last seen well was on dec 16, 8.00 am. Patient also have history of mi and was taking aspirin and h eas not on statin. His speech has improved and he is on plavix and high dose of statin. spoke to nursing staff, and chart reviewed pateint is feeling better, cardiology work up in progress. He has been improving clinically . 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 patient has improved clinically and on mri he has bi hemispheric stroke , complain of mild headhace Plan: continu ePT, Speech dvt prophylaxis continue plavix and statin - carotid ultrasound was unremarkable cardiology work up in progress - wishes to go home, advice to observe over the weekend Thanking you so much Seamus Frey MD
[2019-12-20] MEDS: ATORVASTATIN CA 80 MG TABLET (FP) PO SCH (22:19)
[2019-12-21] MEDS ORDERED: PT OWN MED DRAWER 7, Y5N ONE ×2 (06:21→13:36)
[2019-12-21] MEDS: INSULIN SLIDING SCALE (NOVOLOG) 1 VIAL SQ SCH ×2 (06:29→11:51)
[2019-12-21] MEDS: DOCUSATE SODIUM 100 MG CAPSULE (FP) PO SCH ×2 (06:29→13:39)
[2019-12-21] MEDS: BACLOFEN 10 MG TABLET (FP) PO SCH ×2 (06:29→13:39)
[2019-12-21 07:03] LABS: BASO % 0.8 % (0-2.0); EOS % 4.5 % (0-4.5); HEMATOCRIT 46.1 % (35.4-49); HEMOGLOBIN 15.8 GM/dL (11.7-16.9); LYMPH % 26.6 % (8-40); MCH 31.1 pg (25.7-33.7); MCHC 34.2 g/dl (32.0-35.9); MEAN CELL VOLUME 90.8 fl (80-96); MEAN PLT VOLUME 9.1 fl (7.5-11.1); MONO % 12.5 % (3.8-10.2); NEUT % 55.6 % (42.8-82.8); PLATELET COUNT 308 K/MM3 (134-434); RBC 5.08 M/mm3 (4.00-5.60); RDW 13.5 % (11.9-15.9)
[2019-12-21 07:36] LABS: ALBUMIN 3.6 g/dl (3.4-5.0); BILIRUBIN,TOTAL 0.6 mg/dL (0.2-1); BLOOD UREA NITROGEN 23.1 mg/dL (7-18); CALCIUM 9.9 mg/dL (8.5-10.1); CREATININE 1.6 mg/dL (0.55-1.3); MAGNESIUM 2.2 mg/dL (1.8-2.4); POTASSIUM 5.1 mmol/L (3.5-5.1); TOT PROT 7.5 g/dl (6.4-8.2)
--- NOTE | 2019-12-21 08:49 | PN ---
Progress Note, Physician Chief Complaint: comfortable No CP/ SOB/palps TELE: NSR - Current Medication List Current Medications: Active Medications Amlodipine Besylate (Norvasc -) 10 mg PO DAILY [facility] Last Admin: 12/20/19 09:29 Dose: 10 mg Atorvastatin Calcium (Lipitor -) 80 mg PO HS [facility] Last Admin: 12/20/19 22:19 Dose: 80 mg Baclofen (Lioresal -) 5 mg PO TID [facility] Last Admin: 12/21/19 06:29 Dose: 5 mg Carvedilol (Coreg -) 25 mg PO BID [facility] Last Admin: 12/20/19 22:19 Dose: 25 mg Clopidogrel Bisulfate (Plavix -) 75 mg PO DAILY [facility] Last Admin: 12/20/19 09:29 Dose: 75 mg Docusate Sodium (Colace -) 100 mg PO TID [facility] Last Admin: 12/21/19 06:29 Dose: 100 mg Heparin Sodium (Porcine) (Heparin -) 5,000 unit SQ BID [facility] Last Admin: 12/20/19 22:20 Dose: 5,000 unit Insulin Aspart (Novolog Vial Sliding Scale -) 1 vial SQ [facility]; Protocol Last Admin: 12/21/19 06:29 Dose: Not Given Pantoprazole Sodium (Protonix -) 40 mg PO DAILY [facility] Last Admin: 12/20/19 09:29 Dose: 40 mg - Objective Vital Signs: Vital Signs Temperature 98.0 F 12/21/19 06:00 Pulse Rate 60 12/21/19 06:00 Respiratory Rate 18 12/21/19 06:00 Blood Pressure 148/70 12/21/19 06:00 O2 Sat by Pulse Oximetry (%) 98 12/20/19 21:00 Constitutional: Yes: No Distress Eyes: Yes: Conjunctiva Clear Cardiovascular: Yes: Regular Rate and Rhythm Respiratory: Yes: CTA Bilaterally Gastrointestinal: Yes: Soft Edema: No Neurological: Yes: Alert, Oriented Labs: CBC, BMP 12/21/19 06:05 12/21/19 06:05 INR, PTT INR 0.96 (0.83-1.09) 12/17/19 16:18 Laboratory Tests 12/21/19 12/21/19 06:05 06:05 WBC 6.0 Hgb 15.8 Plt Count 308 Sodium 139 Potassium 5.1 Creatinine 1.6 H - ....Imaging EKG: Image Reviewed Assessment/Plan DATA: echo 11/2019: nl lv/rv, no sig valve path ecg: sr, nl intervals, lat twis (old, seen on 2017 ecg as well), no st changes cxr: clear lungs tele: sr carotids 11/2019: no sig stenosis IMP/PLAN: 69 m hx htn, ckd, dm, mi hld, here with ams, slurred speech. cva: -carotids, echo, tele benign -should f/u with his outpt cardio dr john for extended event monitoring or loop recorder to r/o occult afib. -further plans per neuro htn: -cont coreg. BP trend now improved and near goal with titration Amlodipine ckd: -cr near baseline CAD: -pt reports he was told he had silent mi 20+ yrs ago. No signs acs. No anginal sxs. Echo with nl lvef. Cont statin, plavix, bb. hld: -cont statin. LDL goal 70mg/dl. Cont high intensity statin OK to D/C TELE
[2019-12-21] MEDS: PANTOPRAZOLE 40 MG TABLET PO SCH (09:34)
[2019-12-21] MEDS: CLOPIDOGREL BISULFATE 75 MG TABLET (FP) PO SCH (09:34)
[2019-12-21] MEDS: amLODIPine BESYLATE 10 MG TABLET (FP) PO SCH (09:34)
[2019-12-21] MEDS: HEPARIN NA (PORCINE) 5,000 UNITS/ML 1ML VIAL SQ SCH (09:34)
[2019-12-21] MEDS: CARVEDILOL 25 MG TABLET (FP) PO SCH (09:34)
[2019-12-21 10:45] VITALS: BP 154/76; PULSE 65; TEMP 98.1
--- NOTE | 2019-12-21 11:57 | PN ---
Progress Note (short form) - Note Progress Note: 69 year old male hisory of htn,hld,dm,[place]. Patient has flu and was being treated with tamiflu He was brought to hospital as he was confused . Patient has no history of seizure, there is no hemiparesis or speech dysarthria. Last seen well was on dec 16, 8.00 am. Patient also have history of mi and was taking aspirin and h eas not on statin. His speech has improved and he is on plavix and high dose of statin. spoke to nursing staff, and chart reviewed no new complain. 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 patient has improved clinically and on mri he has bi hemispheric stroke , complain of mild headhace Plan: continue PT, Speech DVT prophylaxis continue plavix and statin - carotid ultrasound was unremarkable cardiology work up in progress, and loop monitoring planned for out patient -Neurological perspective, he can be discharged home. Thanking you so much Seamus Frey MD
--- NOTE | 2019-12-21 13:48 | DS ---
Physical Exam: SUBJECTIVE: Patient seen and examined at the bedside. His is present. Patient wants to be discharged home with physical therapy at home. He feels that his ambulation is improving. He has a RW and his has brought it in for his use. Ambulated with PT today and still having some left sided weakness. He denies headaches, denies dizziness. OBJECTIVE: Patient is a 69 year old male with a significant past medical history of hypertension, hyperlipidemia, GERD, diabetes, and [place]. Patient was brought into the ED on 12/17/19 after he was noted to be confused, with "erratic" behaviour per . A head CT done in the ED revealed an acute/subacute stroke. Brain MRI showed acute infarct noted in the left frontal central semiovale, punctate infarct in the left cingulate gyrus. During hospitalization, stroke protocol initiated and patient was followed by neurologist who recommended Plavix 75mg daily, Lipitor 80mg daily. Patient was out of the TPA window on arrival to the ED. Patient is encouraged to follow up with his cardiology for extended event monitoring or loop recorder to rule out occult atrial fibrillation. His blood pressure was controlled on up titration with amlodopine as well as continuation of his home medications. He has been advised to discontinue the HCTZ until seen by his physicist light and optics secondary to elevated creatinine. He will have his LDL levels repeated as an outpatient. He was also evaluated by speech and physical therapy. Patient prefers to go home and obtain outpatient physical therapy. He was able to ambulate 200feet. He has been cleared for discharge by both neurologist and physicist light and optics. SEE PROBLEM LIST BELOW: Vital Signs Period Temp Pulse Resp BP Sys/Oneal Pulse Ox Last 24 Hr 97.9 F-98.7 F 60-66 16-18 140-166/70-86 98-98 PHYSICAL EXAM GENERAL: Awake, alert, forgetful, in no acute distress. slurred speech initially, now improving. HEAD: Normal with no signs of trauma. EYES: Pupils equal, round and reactive to light, extraocular movements intact, sclera anicteric, conjunctiva clear. No lid lag. EARS, NOSE, THROAT: Ears normal, nares patent, oropharynx clear without exudates. Moist mucous membranes. NECK: Normal range of motion, supple without lymphadenopathy, JVD, or masses. LUNGS: clear to auscultation HEART: Regular rate and rhythm ABDOMEN: Soft, nontender, not distended, normoactive bowel sounds MUSCULOSKELETAL: Normal range of motion at all joints. No bony deformities or tenderness. No CVA tenderness. UPPER EXTREMITIES: No peripheral edema. LOWER EXTREMITIES: No peripheral edema. NEUROLOGICAL: clearer speech, left upper arm 4/5, left left leg 4/5, right arm 5/5, right leg 5/5 LABS Laboratory Results - last 24 hr 12/20/19 12/20/19 12/21/19 16:50 21:04 06:05 WBC 6.0 RBC 5.08 Hgb 15.8 Hct 46.1 MCV 90.8 MCH 31.1 MCHC 34.2 RDW 13.5 Plt Count 308 MPV 9.1 Absolute Neuts (auto) 3.3 Neutrophils % 55.6 Lymphocytes % 26.6 Monocytes % 12.5 H Eosinophils % 4.5 Basophils % 0.8 Nucleated RBC % 0 Sodium Potassium Chloride Carbon Dioxide Anion Gap BUN Creatinine Est GFR (CKD-EPI)AfAm Est GFR (CKD-EPI)NonAf POC Glucometer 115 154 Random Glucose Calcium Magnesium Total Bilirubin AST ALT Alkaline Phosphatase Total Protein Albumin 12/21/19 12/21/19 12/21/19 06:05 06:27 11:25 WBC RBC Hgb Hct MCV MCH MCHC RDW Plt Count MPV Absolute Neuts (auto) Neutrophils % Lymphocytes % Monocytes % Eosinophils % Basophils % Nucleated RBC % Sodium 139 Potassium 5.1 Chloride 102 Carbon Dioxide 32 Anion Gap 5 L BUN 23.1 H Creatinine 1.6 H Est GFR (CKD-EPI)AfAm 50.20 Est GFR (CKD-EPI)NonAf 43.31 POC Glucometer 113 164 Random Glucose 131 H Calcium 9.9 Magnesium 2.2 Total Bilirubin 0.6 AST 28 ALT 76 H Alkaline Phosphatase 101 Total Protein 7.5 Albumin 3.6 HOSPITAL COURSE: Date of Admission:12/17/19 Date of Discharge: 12/21/19 Minutes to complete discharge: 45 Discharge Summary Problems reviewed: Yes Reason For Visit: CVA Current Active Problems CKD (chronic kidney disease) (Acute) DVT prophylaxis (Acute) Diabetes (Acute) Headache (Acute) Hyperlipidemia (Acute) Hypertension (Acute) Morbid obesity (Acute) Prophylactic measure (Acute) Stroke (Acute) Condition: Fair - Instructions Diet, Activity, Other Instructions: Mr Lutz: You were admitted to [facility] after your suffered a stroke. You were evaluated by a physicist light and optics and a neurologist during your stay. Here are our discharge recommendations. What is a stroke? A stroke is a cerebrovascular accident or a CVA. It affects the brain. There is no cure but there is treatment for prevention of future strokes. We have started you on Plavix 75mg DAILY and Lipitor 80mg Daily. How do I prevent a stroke? Please monitor your blood sugars and maintain your glucose levels less than 180 pre meal. Continue to follow a diabetic diet. It is important that you control your blood pressure as well as control your cholesterol levels. What medications am I going to home with and why am I taking them? Plavix 75mg daily - This medication is for stroke prevention. It is once per day in the morning Lipitor 80mg daily - This medication will help reduce your cholesterol levels Losartan 100mg daily - This medication will help control your blood pressure Amlodopine/Norvasc 10mg daily - This medication will help control your blood pressure (This dose was increased from Norvasc 5mg that you were taking at home) Coreq 25mg TWICE per day - This medication helps control your blood pressure Continue taking the Metformin as you have been doing at home. Your diabetes is well controlled. Please check your blood sugars at least twice per day at home. Please see your physicist light and optics. You may need further workup such as a loop recorder or a recording device for closer monitoring. Thank you for allowing us to care for you Questions: please call me Chanell Kelley [place] MEDICAL DOCTOR MD [phone] Referrals: Seamus Frey MD [Staff Physician] - Tristan Fraire [Primary Care Provider] - Disposition: HOME - Home Medications Comprehensive Discharge Medication List: Ambulatory Orders Carvedilol 25 mg PO DAILY 03/27/15 Pantoprazole Sodium [Protonix] 40 mg PO DAILY 03/27/15 Albuterol Sulfate Inhaler - [Ventolin HFA Inhaler -] 1 - 2 inh PO Q6H #1 inhaler 02/26/19 metFORMIN HCL [Metformin HCl] 500 mg PO BID 05/02/19 Baclofen 5 mg PO TID #30 tablet 12/10/19 Atorvastatin Ca [Lipitor] 80 mg PO HS #120 tablet 12/18/19 Baclofen [Lioresal -] 5 mg PO TID tablet 12/18/19 Clopidogrel Bisulfate [Plavix -] 75 mg PO DAILY #120 tablet 12/18/19 Walker [Ultra-Light Rollator] 1 each [facility] DAILY #1 each 12/18/19 Amlodipine Besylate [Norvasc -] 10 mg PO DAILY #90 tablet 12/21/19 Losartan Potassium 100 mg PO DAILY #90 tablet 12/21/19 Problem List - Problems (1) Stroke Assessment/Plan: 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 speech has improved, ambulation has improved. continue home cardiac medications with the addition of Lipitor 80mg daily and Plavix 75mg daily. patient has multiple risk factors for stroke that includes high cholesterol ( was on lipitor 40 at home but was not taking it), diabetes, CAD and hypertension. Speech improving since admission. Swallow evaluation completed and recommends regular diet with thin liquids. echo with normal lvef and mild regurg., patient will need follow up with his physicist light and optics as an outpatient for a possible loop recorder. hmga1c 6.8 Code(s): I63.9 - CEREBRAL INFARCTION, UNSPECIFIED Qualifiers: CVA mechanism: unspecified Qualified Code(s): I63.9 - Cerebral infarction, unspecified (2) Headache Assessment/Plan: resolved. Code(s): R51 - HEADACHE (3) Hypertension Assessment/Plan: on coreq, amlodopine, losartan Code(s): I10 - ESSENTIAL (PRIMARY) HYPERTENSION (4) Hyperlipidemia Assessment/Plan: elevated lipid panel. not taking home statin per continue lipitor 80mg daily Code(s): E78.5 - HYPERLIPIDEMIA, UNSPECIFIED (5) Diabetes Assessment/Plan: hmga1c 6.8, controlled diabetes. bgms stable. patient to continue taking home metformin Code(s): E11.9 - TYPE 2 DIABETES MELLITUS WITHOUT COMPLICATIONS (6) Morbid obesity Assessment/Plan: weight loss encouraged, nutritional evaluation as an outpatient. Code(s): E66.01 - MORBID (SEVERE) OBESITY DUE TO EXCESS CALORIES (7) CKD (chronic kidney disease) Assessment/Plan: creat close to baseline Code(s): N18.9 - CHRONIC KIDNEY DISEASE, UNSPECIFIED (8) DVT prophylaxis Assessment/Plan: heparin bid Code(s): Z29.9 - ENCOUNTER FOR PROPHYLACTIC MEASURES, UNSPECIFIED (9) Prophylactic measure Assessment/Plan: discharge home Code(s): Z29.9 - ENCOUNTER FOR PROPHYLACTIC MEASURES, UNSPECIFIED This patient is new to me today: No Emergency Visit: Yes ED Registration Date: 12/17/19 Care time: The patient presented to the Emergency Department on the above date and was hospitalized for further evaluation of their emergent condition. Critical Care patient: No - Discharge Referral Referred to [facility] No
== END 2019-12-21 15:00 | disposition home or self-care (01) | DRG 66 ==
LOC: JER 14:58 → JERBED 17:40 → J4S 12-18 02:47
PROVIDERS: ADMIT Internal Medicine; ATTEND Nurse Practitioner Family
DX: I63.9 Cerebral infarction, unspecified (principal); E11.9 Type 2 diabetes mellitus without complications; R47.01 Aphasia; N18.9 Chronic kidney disease, unspecified; R51 Headache; E78.5 Hyperlipidemia, unspecified; K21.9 Gastro-esophageal reflux disease without esophagitis; I12.9 Hypertensive chronic kidney disease with stage 1 through stage 4 chronic kidney disease, or unspecified chronic kidney disease; E66.01 Morbid (severe) obesity due to excess calories; Z68.33 Body mass index [BMI] 33.0-33.9, adult; I25.10 Atherosclerotic heart disease of native coronary artery without angina pectoris; R29.701 NIHSS score 1
CPT/HCPCS: 36415; 70450-TC; 70551-TC; 71045-TC-FY; 80053; 80061; 81003; 82550; 82553; 82962; 83036; 83721; 83735; 84484; 85025; 85610; 85730; 86850; 86900; 86901; 87040; 87086; 93005; 93010; 93306-TC; 93880-TC; 97116-GP; 97161-GP; 99283-25; J0475; J1644; J7030

== ENCOUNTER 2020-01-11 14:30 | Emergency (ER) | payer OTHER ==
[2020-01-11 14:37] VITALS: BP 181/85; PULSE 76; TEMP 98.3; BMI 34.1
--- NOTE | 2020-01-11 14:54 | PDOC ---
History of Present Illness - General Chief Complaint: Cold Symptoms Stated Complaint: NOSE CONGESTION Time Seen by Provider: 01/11/20 14:41 History Source: Patient Exam Limitations: Clinical Condition - History of Present Illness Initial Comments: 01/11/20 14:54 Patient with past medical history of cardiomyopathy, hypertension, prior NC and CVA admitted a month ago on anticoagulant present with complaint of 4-day history of nasal congestion. Patient currently on Holter monitor and being followed by cardiology and PCP for elevated blood pressures. Patient reported his blood pressure medication was increased by PCP 3 days ago and patient currently have a Holter monitor which get removed in 4 days. Patient currently on amlodipine 10 mg twice daily for better blood pressure and multiple blood pressure meds. Denies dizziness, chest pain, palpitation, shortness of breath, headache. Denies any other symptoms Is this a multiple visit Asthma Patient?: No Past History - Past Medical History Allergies/Adverse Reactions: Allergies Allergy/AdvReac Type Severity Reaction Status Date / Time No Known Allergies Allergy Verified 01/11/20 14:37 Home Medications: Ambulatory Orders Carvedilol 25 mg PO DAILY 03/27/15 Pantoprazole Sodium [Protonix] 40 mg PO DAILY 03/27/15 Albuterol Sulfate Inhaler - [Ventolin HFA Inhaler -] 1 - 2 inh PO Q6H #1 inhaler 02/26/19 metFORMIN HCL [Metformin HCl] 500 mg PO BID 05/02/19 Baclofen 5 mg PO TID #30 tablet 12/10/19 Atorvastatin Ca [Lipitor] 80 mg PO HS #120 tablet 12/18/19 Baclofen [Lioresal -] 5 mg PO TID tablet 12/18/19 Clopidogrel Bisulfate [Plavix -] 75 mg PO DAILY #120 tablet 12/18/19 Walker [Ultra-Light Rollator] 1 each MC DAILY #1 each 12/18/19 Amlodipine Besylate [Norvasc -] 10 mg PO DAILY #90 tablet 12/21/19 Losartan Potassium 100 mg PO DAILY #90 tablet 12/21/19 Ipratropium [place] 2 spray NS BID PRN #1 spray 01/11/20 Anemia: No Cardiac Disorders: Yes ([place]) COPD: No CHF: No Diabetes: Yes GI Disorders: Yes (GERD) HTN: Yes Hypercholesterolemia: Yes - Surgical History Cardiac Surgery: No Neurologic Surgery: No - Immunization History Immunization Up to Date: Yes - Psycho Social/Smoking Cessation Hx Smoking History: Never smoked Have you smoked in the past 12 months: No If you are a former smoker, when did you quit?: in the 1970s Hx Alcohol Use: Yes (1 beer/month) Drug/Substance Use Hx: No Substance Use Type: None Hx Substance Use Treatment: No Review of Systems - Review of Systems Able to Perform ROS?: Yes Is the patient limited Arabic proficient: No Constitutional: No: Chills, Fever, Malaise HEENTM: Yes: Symptoms Reported, See HPI, Nose Congestion. No: Eye Pain, Blurred Vision, Tearing, Recent change in vision, Double Vision, Cataracts, Ear Pain, Ocular Prothesis, Ear Discharge, Nose Pain, Tinnitus, Nose Bleeding, Hearing Loss, Throat Pain, Throat Swelling, Mouth Pain, Dental Problems, Difficulty Swallowing, Mouth Swelling, Other Respiratory: No: Symptoms reported, See HPI, Cough, Orthopnea, Shortness of Breath, SOB with Exertion, SOB at Rest, Stridor, Wheezing, Productive cough, Hemoptysis, Other Cardiac (ROS): No: Symptoms Reported, See HPI, Chest Pain, Edema, Irregular Heart Rate, Lightheadedness, Palpitations, Syncope, Chest Tightness, Other ABD/GI: No: Symptoms Reported, See HPI, Nausea, Vomiting Musculoskeletal: No: Symptoms Reported Integumentary: No: Symptoms Reported Neurological: No: Symptoms reported, Headache, Dizziness All Other Systems: Reviewed and Negative *Physical Exam - Vital Signs Last Vital Signs Temp Pulse Resp BP Pulse Ox 98.3 F 76 18 181/85 H 100 01/11/20 14:34 01/11/20 14:34 01/11/20 14:34 01/11/20 14:34 01/11/20 14:34 - Physical Exam 01/11/20 14:58 GENERAL: Well developed, well nourished. Awake and alert. No acute distress. HEENT: Bilateral nasal congestion. Normocephalic, atraumatic. PERRLA, EOMI. No conjunctival pallor. Sclera are non-icteric. Moist mucous membranes. Oropharynx is clear. NECK: Supple. Full ROM. CARDIOVASCULAR: Regular rate and rhythm. No murmurs, rubs, or gallops. Distal pulses are 2+ and symmetric. PULMONARY: No evidence of respiratory distress. Lungs clear to auscultation bilaterally. No wheezing, rales or rhonchi. MUSCULOSKELETAL Normal range of motion at all joints. SKIN: Warm and dry. Normal capillary refill. No rashes. No cyanosis. NEUROLOGICAL: Alert, awake, appropriate. Gait is normal without ataxia. PSYCHIATRIC: Cooperative. Good eye contact. Appropriate mood General Appearance: Yes: Nourished, Appropriately Dressed. No: Apparent Distress Medical Decision Making - Medical Decision Making 01/11/20 14:56 Patient with past medical history of cardiomyopathy, hypertension, prior NC and CVA admitted a month ago on anticoagulant present with complaint of 4-day history of nasal congestion. Patient currently on Holter monitor and being followed by cardiology and PCP for elevated blood pressures. Patient reported his blood pressure medication was increased by PCP 3 days ago and patient currently have a Holter monitor which get removed in 4 days. Patient currently on amlodipine 10 mg twice daily for better blood pressure and multiple blood pressure meds. Denies dizziness, chest pain, palpitation, shortness of breath, headache. Denies any other symptoms Clinical exam unremarkable except bilateral nasal congestion with normal cardio and lung exam. Patient with elevated blood pressure. Patient clinically stable and asymptomatic of any cardiomyopathy symptoms. Patient stable for discharge on Atrovent nasal spray for nasal congestion with advised to use humidifier and mist therapy for nasal congestion. Patient advised to keep a log of blood pressure measurement and follow-up with PCP for elevated blood pressures for possible adjustment to blood pressure meds. Patient stable for discharge Discharge - Discharge Information Problems reviewed: Yes Clinical Impression/Diagnosis: Nasal sinus congestion Hypertension Qualifiers: Hypertension type: essential hypertension Qualified Code(s): I10 - Essential ( primary) hypertension Condition: Stable Disposition: HOME - Admission No - Additional Discharge Information Prescriptions: Ipratropium [place] 2 spray NS BID PRN #1 spray PRN Reason: nasal congestion - Follow up/Referral Referrals: Tristan Fraire [Primary Care Provider] - - Patient Discharge Instructions Patient Printed Discharge Instructions: DI for Common Cold Additional Instructions: Use nasal spray as prescribed. Use humidifier to help with nasal congestion as discussed. Increase fluid intake. Continue monitoring home blood pressure measurement and keep a log of it and follow-up with PCP to help manage elevated blood pressures - Post Discharge Activity
== END 2020-01-11 14:57 | disposition home or self-care (01) ==
LOC: JERFT 14:30
DX: J34.89 Other specified disorders of nose and nasal sinuses (principal); I25.10 Atherosclerotic heart disease of native coronary artery without angina pectoris; I10 Essential (primary) hypertension; I42.9 Cardiomyopathy, unspecified; I25.2 Old myocardial infarction; E78.00 Pure hypercholesterolemia, unspecified; E11.9 Type 2 diabetes mellitus without complications; Z79.84 Long term (current) use of oral hypoglycemic drugs; K21.9 Gastro-esophageal reflux disease without esophagitis; Z86.73 Personal history of transient ischemic attack (TIA), and cerebral infarction without residual deficits; Z79.01 Long term (current) use of anticoagulants
CPT/HCPCS: 99283-25

== ENCOUNTER 2020-01-14 01:21 | Emergency (ER) | payer OTHER ==
[2020-01-14 01:36] VITALS: TEMP 98.3; BMI 33.7
--- NOTE | 2020-01-14 02:23 | PDOC ---
History of Present Illness - General Chief Complaint: Urinary Problem Stated Complaint: URINARY PROBLEM,CONGESTION Time Seen by Provider: 01/14/20 02:23 - History of Present Illness Initial Comments: HPI: 69 yo M with PMH of HTN, HLD, GERD, DM, NE presents for evaluation of urinary retention. Patient reports that he has only been able to dribble small amounts of urine since 8pm. Prior to then, he was urinating normally. No dysuria or hematuria. Denies history of urinary retention. Has seen a urologist in the past for evaluation of erectile dysfunction, but that doctor has since retired. Patient also complains of congestion that has not improved with prescription medicine. No fevers, chills, chest pain, or shortness of breath. ROS: Constitutional: no fever, no chills HEENT: no throat pain, no dysphagia Cardiovascular: no chest pain, no palpitations Respiratory: no cough, no shortness of breath Gastrointestinal: no abdominal pain, no nausea Genitourinary: no dysuria, +urinary retention Musculoskeletal: no myalgia, no arthralgia Skin: no rash, no itching Neurologic: no headache, no weakness Psych: no agitation, no anxiety PE: General: Awake, alert, and fully oriented, in no acute distress Head: No signs of trauma Eyes: EOMI, sclera anicteric ENT: Moist mucus membranes Neck: Normal ROM, supple Lungs: Lungs clear, Normal breath sounds Cardio: Regular rhythm, S1 and S2 present Abdomen: Soft, nontender. No guarding, no rebound, no masses. No CVA tenderness Extremities: Normal range of motion, Distal pulses present SKIN: Warm, Dry, normal turgor Neurologic: Cranial nerves II through XII grossly intact. Normal speech ED Course/MDM: DDX including but not limited to UTI, BPH, neurogenic bladder Olivia catheter drained ~500cc Labs 01/14/20 02:23 CBC WBC 5.7 K/mm3 (4.0-10.0) 01/14/20 02:53 RBC 5.00 M/mm3 (4.00-5.60) 01/14/20 02:53 Hgb 15.6 GM/dL (11.7-16.9) 01/14/20 02:53 Hct 45.7 % (35.4-49) 01/14/20 02:53 MCV 91.5 fl (80-96) 01/14/20 02:53 MCH 31.1 pg (25.7-33.7) 01/14/20 02:53 MCHC 34.1 g/dl (32.0-35.9) 01/14/20 02:53 RDW 14.0 % (11.9-15.9) 01/14/20 02:53 Plt Count 254 K/MM3 (134-434) 01/14/20 02:53 MPV 8.1 fl (7.5-11.1) D 01/14/20 02:53 Absolute Neuts (auto) 3.2 K/mm3 (1.5-8.0) 01/14/20 02:53 Neutrophils % 55.4 % (42.8-82.8) 01/14/20 02:53 Lymphocytes % 21.6 % (8-40) 01/14/20 02:53 Monocytes % 15.3 % (3.8-10.2) H 01/14/20 02:53 Eosinophils % 6.5 % (0-4.5) H 01/14/20 02:53 Basophils % 1.2 % (0-2.0) 01/14/20 02:53 Nucleated RBC % 0 % (0-0) 01/14/20 02:53 No leukocytosis CMP Sodium 138 mmol/L (136-145) 01/14/20 02:53 Potassium 5.3 mmol/L (3.5-5.1) H 01/14/20 02:53 Chloride 104 mmol/L (98-107) 01/14/20 02:53 Carbon Dioxide 29 mmol/L (21-32) 01/14/20 02:53 Anion Gap 5 MMOL/L (8-16) L 01/14/20 02:53 BUN 20.3 mg/dL (7-18) H 01/14/20 02:53 Creatinine 1.5 mg/dL (0.55-1.3) H 01/14/20 02:53 Est GFR (CKD-EPI)AfAm 54.27 01/14/20 02:53 Est GFR (CKD-EPI)NonAf 46.83 01/14/20 02:53 Random Glucose 140 mg/dL (74-106) H 01/14/20 02:53 Calcium 9.6 mg/dL (8.5-10.1) 01/14/20 02:53 Total Bilirubin 0.4 mg/dL (0.2-1) 01/14/20 02:53 AST 33 U/L (15-37) 01/14/20 02:53 ALT 50 U/L (13-61) 01/14/20 02:53 Alkaline Phosphatase 122 U/L (45-117) H 01/14/20 02:53 Total Protein 7.7 g/dl (6.4-8.2) 01/14/20 02:53 Albumin 3.7 g/dl (3.4-5.0) 01/14/20 02:53 K is elevated, but mildly hemolyzed Cr is at baseline No transaminitis UA without infection Placed in leg bag Urology referral Prescription for flonase sent to pharmacy for congestion Return precautions Stable for discharge 01/14/20 04:44 Past History - Past Medical History Allergies/Adverse Reactions: Allergies Allergy/AdvReac Type Severity Reaction Status Date / Time No Known Allergies Allergy Verified 01/14/20 01:30 Home Medications: Ambulatory Orders Carvedilol 25 mg PO DAILY 03/27/15 Pantoprazole Sodium [Protonix] 40 mg PO DAILY 03/27/15 Albuterol Sulfate Inhaler - [Ventolin HFA Inhaler -] 1 - 2 inh PO Q6H #1 inhaler 02/26/19 metFORMIN HCL [Metformin HCl] 500 mg PO BID 05/02/19 Baclofen 5 mg PO TID #30 tablet 12/10/19 Atorvastatin Ca [Lipitor] 80 mg PO HS #120 tablet 12/18/19 Baclofen [Lioresal -] 5 mg PO TID tablet 12/18/19 Clopidogrel Bisulfate [Plavix -] 75 mg PO DAILY #120 tablet 12/18/19 Walker [Ultra-Light Rollator] 1 each MC DAILY #1 each 12/18/19 Amlodipine Besylate [Norvasc -] 10 mg PO DAILY #90 tablet 12/21/19 Losartan Potassium 100 mg PO DAILY #90 tablet 12/21/19 Ipratropium [place] 2 spray NS BID PRN #1 spray 01/11/20 Fluticasone Prop 0.05% Nasal [Flonase -] 1 - 2 spray NS BID #1 spray.pump Anemia: No Cardiac Disorders: Yes ([place]) COPD: No CHF: No Diabetes: Yes GI Disorders: Yes (GERD) HTN: Yes Hypercholesterolemia: Yes - Surgical History Cardiac Surgery: No Neurologic Surgery: No - Immunization History Immunization Up to Date: Yes - Psycho Social/Smoking Cessation Hx Smoking History: Never smoked Have you smoked in the past 12 months: No If you are a former smoker, when did you quit?: in the 1970s Hx Alcohol Use: No Drug/Substance Use Hx: No Substance Use Type: None Hx Substance Use Treatment: No *Physical Exam - Vital Signs Last Vital Signs Temp Pulse Resp BP Pulse Ox 98.3 F 78 18 188/93 H 95 01/14/20 01:26 01/14/20 01:26 01/14/20 01:26 01/14/20 01:26 01/14/20 01:26 ED Treatment Course - LABORATORY CBC & Chemistry Diagram: 01/14/20 02:53 01/14/20 02:53 Discharge - Discharge Information Problems reviewed: Yes Clinical Impression/Diagnosis: Urinary retention Condition: Improved Disposition: HOME - Additional Discharge Information Prescriptions: Fluticasone Prop 0.05% Nasal [Flonase -] 1 - 2 spray NS BID #1 spray.pump - Follow up/Referral Referrals: Tristan Fraire [Primary Care Provider] - Jatin Ramirez MD [Staff Physician] - - Patient Discharge Instructions Patient Printed Discharge Instructions: How to Care for Your Olivia Catheter -- Male, DI for Urinary Retention in Men Additional Instructions: You came into the emergency department for urinary retention. We placed a urinary catheter. Blood work was at your baseline. The urinalysis showed no infection. We have referred you to a urologist. Call and make an appointment tomorrow morning. Your workup is not complete until you do so. You can take over the counter tylenol for pain. Follow the instructions on the medication bottle. Prescription sent to your pharmacy for congestion. Take as instructed. We also recommend [id number] nasal spray like flonase and trying a netipot to relieve your sinus pain. Immediate medical attention is required if you experience: you develop high fevers, chills, persistent vomiting, stop urinating, or any new or concerning symptoms. If you think you have an emergency, call for medical help right away. - Post Discharge Activity
--- NOTE | 2020-01-14 02:24 | PDOC ---
Attending Attestation - Resident Resident Name: Mami Morales - ED Attending Attestation I have performed the following: I have examined & evaluated the patient, The case was reviewed & discussed with the resident, I agree w/resident's findings & plan - HPI HPI: 01/14/20 04:03 see resident hpi - Physicial Exam PE: 01/14/20 04:03 see resident exam - Medical Decision Making 01/14/20 04:03 69-year-old male with approximately 67 hours of urinary retention Olivia placed on arrival with immediate output of 500 cc of clear urine Patient's creatinine is mildly elevated at baseline There is mild elevation of potassium level though there is hemolysis present We will DC with leg bag and recommended outpatient urology follow-up
[2020-01-14 03:24] LABS: BASO % 1.2 % (0-2.0); EOS % 6.5 % (0-4.5); HEMATOCRIT 45.7 % (35.4-49); HEMOGLOBIN 15.6 GM/dL (11.7-16.9); LYMPH % 21.6 % (8-40); MCH 31.1 pg (25.7-33.7); MCHC 34.1 g/dl (32.0-35.9); MEAN CELL VOLUME 91.5 fl (80-96); MEAN PLT VOLUME 8.1 fl (7.5-11.1); MONO % 15.3 % (3.8-10.2); NEUT % 55.4 % (42.8-82.8); PLATELET COUNT 254 K/MM3 (134-434); WHITE BLOOD COUNT 5.7 K/mm3 (4.0-10.0)
[2020-01-14 03:28] LABS: EPI CELLS 0.4 /HPF (0-5/HPF); HYALINE CASTS 1 /lpf (0-8); PH,URINE 5.5 (5.0-8.0); URINE APPEARANCE CLEAR; URINE BACTERIA 0.8 /hpf (NEGATIVE); URINE BILIRUBIN NEGATIVE (NEGATIVE); URINE COLOR YELLOW; URINE GLUCOSE (UA) NEGATIVE (NEGATIVE); URINE KETONE NEGATIVE (NEGATIVE); URINE LEUK ESTERASE NEGATIVE (NEGATIVE); URINE NITRITE NEGATIVE (NEGATIVE); URINE PROTEIN 1+ (NEGATIVE); URINE RBC 1 /hpf (0-4); URINE UROBILINOGEN 0.2 mg/dL (0.2-1.0); URINE WBC 0 /hpf (0-5)
[2020-01-14 03:39] LABS: ALBUMIN 3.7 g/dl (3.4-5.0); BILIRUBIN,TOTAL 0.4 mg/dL (0.2-1); BLOOD UREA NITROGEN 20.3 mg/dL (7-18); CALCIUM 9.6 mg/dL (8.5-10.1); CREATININE 1.5 mg/dL (0.55-1.3); POTASSIUM 5.3 mmol/L (3.5-5.1); TOT PROT 7.7 g/dl (6.4-8.2)
[2020-01-14 04:11] VITALS: BP 174/83; PULSE 79
== END 2020-01-14 05:48 | disposition home or self-care (01) ==
LOC: JER 01:21
DX: R33.9 Retention of urine, unspecified (principal); I25.2 Old myocardial infarction; K21.9 Gastro-esophageal reflux disease without esophagitis; I10 Essential (primary) hypertension; E78.00 Pure hypercholesterolemia, unspecified; Z87.891 Personal history of nicotine dependence
CPT/HCPCS: 36415; 80053; 81003; 85025; 87086; 99283-25

== ENCOUNTER 2020-01-16 18:10 | Emergency (ER) | payer OTHER ==
--- NOTE | 2020-01-16 18:29 | PDOC ---
Rapid Medical Evaluation Time Seen by Provider: 01/16/20 18:17 Medical Evaluation: Allergies Allergy/AdvReac Type Severity Reaction Status Date / Time No Known Allergies Allergy Verified 01/14/20 01:30 01/16/20 18:26 CC: catheter site pain. Feels iodine from F/C insertion is bothering his penis. PE: deferred Orders: nothing Patient will proceed to ED for evaluation. Discharge Disposition - Diagnosis Penis pain - Referrals - Patient Instructions - Post Discharge Activity
[2020-01-16 18:31] VITALS: BP 175/84; PULSE 84; TEMP 98; BMI 34.0
--- NOTE | 2020-01-16 19:10 | PDOC ---
History of Present Illness - General Chief Complaint: Urinary Catheter Problem Stated Complaint: FOLLOW-UP Time Seen by Provider: 01/16/20 18:17 Past History - Past Medical History Allergies/Adverse Reactions: Allergies Allergy/AdvReac Type Severity Reaction Status Date / Time No Known Allergies Allergy Verified 01/14/20 01:30 Home Medications: Ambulatory Orders Carvedilol 25 mg PO DAILY 03/27/15 Pantoprazole Sodium [Protonix] 40 mg PO DAILY 03/27/15 Albuterol Sulfate Inhaler - [Ventolin HFA Inhaler -] 1 - 2 inh PO Q6H #1 inhaler 02/26/19 metFORMIN HCL [Metformin HCl] 500 mg PO BID 05/02/19 Baclofen 5 mg PO TID #30 tablet 12/10/19 Atorvastatin Ca [Lipitor] 80 mg PO HS #120 tablet 12/18/19 Baclofen [Lioresal -] 5 mg PO TID tablet 12/18/19 Clopidogrel Bisulfate [Plavix -] 75 mg PO DAILY #120 tablet 12/18/19 Walker [Ultra-Light Rollator] 1 each MC DAILY #1 each 12/18/19 Amlodipine Besylate [Norvasc -] 10 mg PO DAILY #90 tablet 12/21/19 Losartan Potassium 100 mg PO DAILY #90 tablet 12/21/19 Ipratropium [place] 2 spray NS BID PRN #1 spray 01/11/20 Fluticasone Prop 0.05% Nasal [Flonase -] 1 - 2 spray NS BID #1 spray.pump Anemia: No Cardiac Disorders: Yes ([place]) COPD: No CHF: No Diabetes: Yes GI Disorders: Yes (GERD) HTN: Yes Hypercholesterolemia: Yes - Surgical History Cardiac Surgery: No Neurologic Surgery: No - Immunization History Immunization Up to Date: Yes - Psycho Social/Smoking Cessation Hx Smoking History: Never smoked Have you smoked in the past 12 months: No If you are a former smoker, when did you quit?: in the 1970s Information on smoking cessation initiated: No Hx Alcohol Use: No Drug/Substance Use Hx: No Substance Use Type: None Hx Substance Use Treatment: No Discharge - Follow up/Referral Referrals: Carson Otero MD., MD [Staff Physician] - 01/21/20 Tristan Fraire [Primary Care Provider] - - Patient Discharge Instructions Patient Printed Discharge Instructions: How to Care for Your Wahl Catheter -- Male Additional Instructions: You came into the emergency department for wahl discomfort. There is no acute issues. The wahl needs to be kept clean until your appointment on Sunday with Dr Otero. We cant remove the wahl yet as the urologist needs to assess what initially caused your retention on your previous visit. Your workup is not complete until you see the urologist. You can take over the counter tylenol for pain. Follow the instructions on the medication bottle. Immediate medical attention is required if you experience: you develop high fevers, chills, persistent vomiting, stop urinating, or any new or concerning symptoms. If you think you have an emergency, call for medical help right away. - Post Discharge Activity
--- NOTE | 2020-01-16 21:15 | PDOC ---
History of Present Illness - History of Present Illness Initial Comments: 01/16/20 21:14 69 year old male with a significant past medical history of R [employer] stroke, hypertension, hyperlipidemia, GERD, diabetes, and [place] presents to ED due to discomfort around walh. Pt denies any symptoms of fever, chills, change in urination, purulent discharge or swelling or lower abdominal pain. Pt was given strict instruction to follow for his wahl catheter cleaning but pt admits to not doing them. NO weakness or sensory abnormality in the genital region. ROS: Constitutional: no fever, no chills HEENT: no throat pain, no dysphagia Cardiovascular: no chest pain, no palpitations Respiratory: no cough, no shortness of breath Gastrointestinal: no abdominal pain, no nausea Genitourinary: no dysuria, no urinary retention Musculoskeletal: no myalgia, no arthralgia Skin: no rash, no itching Neurologic: no headache, no weakness Psych: no agitation, no anxiety PE: General: Awake, alert, and fully oriented, in no acute distress Head: No signs of trauma Eyes: EOMI, sclera anicteric ENT: Moist mucus membranes Neck: Normal ROM, supple Lungs: Lungs clear, Normal breath sounds Cardio: Regular rhythm, S1 and S2 present Abdomen: Soft, nontender. No guarding, no rebound, no masses. No CVA tenderness Extremities: Normal range of motion, Distal pulses present SKIN: Warm, Dry, normal turgor Neurologic: Cranial nerves II through XII grossly intact. Normal speech Genital: no overt bleeding or drainage, no tenderness around the penile urethral opening Plan: pt will be discharged with discharge instructions for cleaning and maintaining the wahl with close follow up with his urology appointment on sunday. I explained to the pt should he experience retention, bleeding, purulent drainage, fever, chills, SOB, Chest pain or severe abdominal pain, to return to the ED immediately. <Dena Nieves - Last Filed: 01/19/20 21:31> <Varghese Hui - Last Filed: 01/23/20 01:47> - General Chief Complaint: Urinary Catheter Problem Stated Complaint: FOLLOW-UP Time Seen by Provider: 01/16/20 18:17 Past History - Past Medical History Anemia: No Cardiac Disorders: Yes ([place]) COPD: No CHF: No Diabetes: Yes GI Disorders: Yes (GERD) HTN: Yes Hypercholesterolemia: Yes - Surgical History Cardiac Surgery: No Neurologic Surgery: No - Immunization History Immunization Up to Date: Yes - Psycho Social/Smoking Cessation Hx Smoking History: Never smoked Have you smoked in the past 12 months: No If you are a former smoker, when did you quit?: in the 1970s Information on smoking cessation initiated: No Hx Alcohol Use: No Drug/Substance Use Hx: No Substance Use Type: None Hx Substance Use Treatment: No <Dena Nieves - Last Filed: 01/19/20 21:31> <Varghese Hui - Last Filed: 01/23/20 01:47> - Past Medical History Allergies/Adverse Reactions: Allergies Allergy/AdvReac Type Severity Reaction Status Date / Time No Known Allergies Allergy Verified 01/14/20 01:30 Home Medications: Ambulatory Orders Carvedilol 25 mg PO DAILY 03/27/15 Pantoprazole Sodium [Protonix] 40 mg PO DAILY 03/27/15 Albuterol Sulfate Inhaler - [Ventolin HFA Inhaler -] 1 - 2 inh PO Q6H #1 inhaler 02/26/19 metFORMIN HCL [Metformin HCl] 500 mg PO BID 05/02/19 Baclofen 5 mg PO TID #30 tablet 12/10/19 Atorvastatin Ca [Lipitor] 80 mg PO HS #120 tablet 12/18/19 Baclofen [Lioresal -] 5 mg PO TID tablet 12/18/19 Clopidogrel Bisulfate [Plavix -] 75 mg PO DAILY #120 tablet 12/18/19 Walker [Ultra-Light Rollator] 1 each MC DAILY #1 each 12/18/19 Amlodipine Besylate [Norvasc -] 10 mg PO DAILY #90 tablet 12/21/19 Losartan Potassium 100 mg PO DAILY #90 tablet 12/21/19 Ipratropium [place] 2 spray NS BID PRN #1 spray 01/11/20 Fluticasone Prop 0.05% Nasal [Flonase -] 1 - 2 spray NS BID #1 spray.pump Review of Systems - Review of Systems Is the patient limited Nauruan proficient: No <Dena Nieves - Last Filed: 01/19/20 21:31> *Physical Exam - Vital Signs Last Vital Signs Temp Pulse Resp BP Pulse Ox 98 F 84 18 175/84 H 99 01/16/20 18:27 01/16/20 18:27 01/16/20 18:27 01/16/20 18:27 01/16/20 18:27 <Dena Nieves - Last Filed: 01/19/20 21:31> - Vital Signs Last Vital Signs Temp Pulse Resp BP Pulse Ox 98 F 84 18 175/84 H 99 01/16/20 18:27 01/16/20 18:27 01/16/20 18:27 01/16/20 18:27 01/16/20 18:27 <Varghese Hui - Last Filed: 01/23/20 01:47> Medical Decision Making - Medical Decision Making 01/23/20 01:46 69 yo male w/ pain around urethral meatus / newly inserted wahl site Exam Normal Urethral meatus with crusting Wahl in place Urine appears clear MDM Pt wo fevers flank pain or pain after adjustment and cleaning around urethral meatus, given wahl care instructions which he was not provided previously and return precautions <Varghese Hui - Last Filed: 01/23/20 01:47> Discharge - Discharge Information Problems reviewed: Yes - Admission No <Dena Nieves - Last Filed: 01/19/20 21:31> <Varghese Hui - Last Filed: 01/23/20 01:47> - Discharge Information Disposition: HOME - Follow up/Referral Referrals: Tristan Fraire [Primary Care Provider] - Carson Otero MD., [Staff Physician] - 01/21/20 - Patient Discharge Instructions Patient Printed Discharge Instructions: How to Care for Your Wahl Catheter -- Male Additional Instructions: You came into the emergency department for wahl discomfort. There is no acute issues. The wahl needs to be kept clean until your appointment on Sunday with Dr Otero. We cant remove the wahl yet as the urologist needs to assess what initially caused your retention on your previous visit. Your workup is not complete until you see the urologist. You can take over the counter tylenol for pain. Follow the instructions on the medication bottle. Immediate medical attention is required if you experience: you develop high fevers, chills, persistent vomiting, stop urinating, or any new or concerning symptoms. If you think you have an emergency, call for medical help right away. - Post Discharge Activity
== END 2020-01-16 22:40 | disposition home or self-care (01) ==
LOC: JER 18:10
DX: T83.84XA Pain due to genitourinary prosthetic devices, implants and grafts, initial encounter (principal); I25.10 Atherosclerotic heart disease of native coronary artery without angina pectoris; I10 Essential (primary) hypertension; I25.2 Old myocardial infarction; E11.9 Type 2 diabetes mellitus without complications; Z79.84 Long term (current) use of oral hypoglycemic drugs; K21.9 Gastro-esophageal reflux disease without esophagitis; E78.00 Pure hypercholesterolemia, unspecified; Z86.73 Personal history of transient ischemic attack (TIA), and cerebral infarction without residual deficits; Z99.89 Dependence on other enabling machines and devices; Z79.02 Long term (current) use of antithrombotics/antiplatelets
CPT/HCPCS: 99282-25

== ENCOUNTER 2020-01-31 12:45 | Emergency (ER) | payer OTHER ==
[2020-01-31 13:18] VITALS: TEMP 98.6; BMI 33.8
[2020-01-31] MEDS ORDERED: SODIUM CHLORIDE 1,000 ML IV SCH (13:30)
--- NOTE | 2020-01-31 13:49 | PDOC ---
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 He reported that he was very angry at his , began to yell, and that is when his headache developed. He reported the headache is located to his forehead, behind his eyes, constant, throbbing, no alleviating her aggravating factors. He reported he took three Tylenol and one amlodipine 10 mg at 12 PM. He reported since that his headache is completely resolved, with the total duration of around two hours. He denied new weakness, numbness, tingling, visual changes, gait changes, voice changes, chest pain, shortness of breath, vomiting, abdominal pain. He reported over the last few weeks he has had the development of headaches, which she believes is due to his glaucoma, because since he has been having glaucoma surgery is his headaches have been improving. He reported the last Sunday he has left I performed on, and the week prior to that he had his right eye or performed on. reported that the reason that she brought the patient to the emergency department today for his headache, was that he has never complained of lightheadedness before. Patient reported no complaints at this time. Patient reported he was discontinued from his Erin medication around two weeks ago, but otherwise has been taking all medications as prescribed. PCP: [facility]: Shante LINDSAY General: denied fever, chills, generalized weakness. HEENT: denied sore throat, rhinorrhea, ear pain. Cardiovascular: admitted to [facility]. denied chest pain, palpitations, syncope, diaphoresis. Respiratory: denied shortness of breath, cough, sputum production, hemoptysis. Gastrointestinal: denied abdominal pain, nausea, vomiting, diarrhea, constipation, blood in stool. Genitourinary: denied dysuria, increased urinary frequency, hematuria, urinary incontinence, flank pain. Back: denied back pain. Musculoskeletal: denied joint pain, muscle pain, joint swelling. Neurological: admitted to headache. denied dizziness, numbness, tingling, weakness. Integumentary: denied rash, laceration, abrasion. Hematologic/Lymphatic: denied bruising or bleeding. PE Constitutional: Well-nourished, Well-developed, appearing stated age. HEENT: head is normocephalic, atraumatic. EOMI. PERRLA. no scalp hematoma. Neck: supple. Full ROM. Cardiovascular: regular heart rhythm. Normal S1 and S2. no murmurs. no pericardial friction rub. Respiratory: clear to auscultation bilaterally. no crackles, rhonchi or wheezing. no stridor. Gastrointestinal: soft, flat, nontender. normal bowel sounds. no rebound, guarding, or masses. Extremities: peripheral pulses intact and equal. no lower extremity edema noted. Neurological: CN2-12 intact. 5/5 strength all extremities. normal ankle plantar flexion. full sensation all extremities and bilateral face. no ataxia. gait normal. Attends bilaterally. Follows commands. Answers questions appropriately. Normal speech. Psych: awake, alert, oriented x3. follows commands. answers questions appropriately. tPA Exclusion Checklist 0-3hr - Time Elapsed Date last known well: 01/31/20 Time last known well: 11:30 Elaspsed time: Day(s) and 10 Hour(s) and 52 Minutes - Thrombolytic Therapy Candidate Is the patient eligible for Thrombolytic Therapy?: No - Exclusion Criteria 0-3hr SBP greater than 185 or DBP greater than 110mmHg despite tx: No Recent IC/spinal surgery,head trauma or stroke w/in last 3mo: Yes Hx of previous IC hemorrhage, IC neoplasm, AVM or aneurysm: No Active internal bleeding: No Blding diathesis(low plt ct, inc PTT,INR>1.7 or use of NOAC): No Symptoms suggest subarachnoid hemorrhage: No Arterial puncture at noncompressible site in previous 7 days: No Blood glucose concentration less than 50mg/dL (2.7mmol/L): No - Ineligibility reason(s) Reasons No tPA given: See reason(s) noted above NIH Stroke Scale - Last Known Well Date/Time & Onset Date Last Known Well: 01/31/20 Time Last Known Well: 11:30 - Initial Evaluation Level of consciousness: Alert Ask patient the month and their age: Answers both correctly Ask patient to open & close eyes; make fist and let go: Obeys both correctly Best gaze (horizontal eye movement): Normal Visual field testing: No visual field loss Facial paresis (Show teeth/raise eyebrows/close eyes tight): Normal symmetrical movement Motor Function: Left Arm: Normal Motor Function: Right Arm: Normal (extends arm 90 (or 45) degrees for 10 seconds without drift Motor Function: Left Leg: Normal (extends leg 30 degrees for 5 seconds without drift) Motor Function: Right Leg: Normal (extends leg 30 degrees for 5 seconds without drift) Limb Ataxia: Present in one limb Sensory(Use pinprick test arms,legs,trunk,face/side to side): Normal Best language (Describe picture, name items, read sentences): No Aphasia Dysarthria (read several words): Normal articulation Extinction and Inattention: No abnormality (Pt unable to read, unable to cooperate with med portion of test) - Total Score NIH Stroke Scale Score: 1 Past History - Past Medical History Allergies/Adverse Reactions: Allergies Allergy/AdvReac Type Severity Reaction Status Date / Time No Known Allergies Allergy Verified 01/31/20 13:11 Home Medications: Ambulatory Orders Carvedilol 50 mg PO DAILY 03/27/15 Pantoprazole Sodium [Protonix] 40 mg PO DAILY 03/27/15 metFORMIN HCL [Metformin HCl] 500 mg PO BID 05/02/19 Clopidogrel Bisulfate [Plavix -] 75 mg PO DAILY #120 tablet 12/18/19 Walker [Ultra-Light Rollator] 1 each MC DAILY #1 each 12/18/19 Amlodipine Besylate [Norvasc -] 10 mg PO DAILY #90 tablet 12/21/19 Losartan Potassium 100 mg PO DAILY #90 tablet 12/21/19 Fluticasone Prop 0.05% Nasal [Flonase -] 1 - 2 spray NS BID #1 spray.pump 01/14/20 Carvedilol [Coreg -] 25 mg PO HS 01/31/20 Labetalol HCl [Normodyne -] 100 mg PO BID 01/31/20 Latanoprost 1 drop OU BID 01/31/20 Nortriptyline HCl [Pamelor -] 10 mg PO DAILY 01/31/20 Tamsulosin HCl [Flomax] 0.4 mg PO DAILY 01/31/20 metFORMIN HCL [Metformin HCl] 1 tab PO BID 01/31/20 - Immunization History Immunization Up to Date: Yes - Psycho Social/Smoking Cessation Hx Smoking History: Former smoker Have you smoked in the past 12 months: No If you are a former smoker, when did you quit?: in the 1970s Information on smoking cessation initiated: No Hx Alcohol Use: No Drug/Substance Use Hx: No Substance Use Type: None Hx Substance Use Treatment: No *Physical Exam - Vital Signs Last Vital Signs Temp Pulse Resp BP Pulse Ox 98.6 F 94 H 18 176/95 H 99 01/31/20 13:11 01/31/20 13:11 01/31/20 13:11 01/31/20 13:11 01/31/20 13:11 ED Treatment Course - LABORATORY CBC & Chemistry Diagram: 01/31/20 13:45 01/31/20 13:45 - RADIOLOGY Radiology Studies Ordered: Category Date Time Status CHEST X-RAY PORTABLE* [RAD] Stat Radiology 01/31/20 13:25 Ordered Medical Decision Making - Medical Decision Making 69 year old male with above PMH presented to ED for resolved headache associated with lightheadedness. Initial Vital Signs Temp Pulse Resp BP Pulse Ox 98.6 F 94 H 18 176/95 H 99 01/31/20 13:11 01/31/20 13:11 01/31/20 13:11 01/31/20 13:11 01/31/20 13:11 Afebrile. No tachycardia. No tachypnea. Hypertensive. No hypoxia on room air. EKG performed at 1415: rate 90, regular rhythm, left axis, normal intervals, QTc 457, flipped T I/aVL, no other ST changes. -Similar to EKG performed 12/17/19 and 12/11/19 -ECHO 12/18/19: normal EF Imaging ordered: CT head, CXR Medications ordered: normal saline bolus 1000 cc once 01/31/20 14:15 CXR report: Hermilo Rodriguez Name: AGUSTIN MELTON JR DEPARTMENT OF RADIOLOGY Phys: Leanna Perrin RESIDENT : 1950 Age: 69 Sex: M [facility] Acct: [id number] Loc: [address] Exam Date: 01/31/20 Status: [place] [address] Unit Number: [id number] EXAM#: TYPE/EXAM: RESULT: [id number] RAD/CHEST X-RAY PORTABLE* Single view AP portable chest Stroke Trachea midline, normal heart size with no mediastinal widening. No infiltrate, nodule or effusion. Mild subpleural atelectasis may be present in the right lung base. No consolidation is seen. Impression: No acute changes in the lungs identified. Reported By: Jaciel Loaiza MD 01/31/20 1405 01/31/20 14:45 Laboratory Last Values WBC 6.7 K/mm3 (4.0-10.0) 01/31/20 13:45 RBC 4.55 M/mm3 (4.00-5.60) 01/31/20 13:45 Hgb 14.3 GM/dL (11.7-16.9) 01/31/20 13:45 Hct 40.7 % (35.4-49) 01/31/20 13:45 MCV 89.3 fl (80-96) 01/31/20 13:45 MCH 31.3 pg (25.7-33.7) 01/31/20 13:45 MCHC 35.1 g/dl (32.0-35.9) 01/31/20 13:45 RDW 14.2 % (11.9-15.9) 01/31/20 13:45 Plt Count 288 K/MM3 (134-434) 01/31/20 13:45 MPV 7.3 fl (7.5-11.1) L 01/31/20 13:45 Absolute Neuts (auto) 3.8 K/mm3 (1.5-8.0) 01/31/20 13:45 Neutrophils % 56.9 % (42.8-82.8) 01/31/20 13:45 Lymphocytes % 22.5 % (8-40) 01/31/20 13:45 Monocytes % 13.6 % (3.8-10.2) H 01/31/20 13:45 Eosinophils % 5.7 % (0-4.5) H 01/31/20 13:45 Basophils % 1.3 % (0-2.0) 01/31/20 13:45 Nucleated RBC % 0 % (0-0) 01/31/20 13:45 PT with INR 11.30 SEC (9.7-13.0) 01/31/20 13:45 INR 0.96 (0.83-1.09) 01/31/20 13:45 PTT (Actin FS) 33.2 SECONDS (25.2-36.5) 01/31/20 13:45 Sodium 140 mmol/L (136-145) 01/31/20 13:45 Potassium 3.9 mmol/L (3.5-5.1) 01/31/20 13:45 Chloride 106 mmol/L (98-107) 01/31/20 13:45 Carbon Dioxide 25 mmol/L (21-32) 01/31/20 13:45 Anion Gap 8 MMOL/L (8-16) 01/31/20 13:45 BUN 19.2 mg/dL (7-18) H 01/31/20 13:45 Creatinine 1.5 mg/dL (0.55-1.3) H 01/31/20 13:45 Est GFR (CKD-EPI)AfAm 54.27 01/31/20 13:45 Est GFR (CKD-EPI)NonAf 46.83 01/31/20 13:45 Random Glucose 133 mg/dL (74-106) H 01/31/20 13:45 Calcium 8.5 mg/dL (8.5-10.1) 01/31/20 13:45 Total Bilirubin 0.4 mg/dL (0.2-1) 01/31/20 13:45 AST 34 U/L (15-37) 01/31/20 13:45 ALT 50 U/L (13-61) 01/31/20 13:45 Alkaline Phosphatase 127 U/L (45-117) H 01/31/20 13:45 Creatine Kinase 472 U/L (26-308) H 01/31/20 13:45 Creatine Kinase Index 0.7 % (0.0-5.0) 01/31/20 13:45 CK-MB (CK-2) 3.5 ng/mL (0.5-3.6) 01/31/20 13:45 Troponin I < 0.02 ng/ml (0.00-0.05) 01/31/20 13:45 Total Protein 7.3 g/dl (6.4-8.2) 01/31/20 13:45 Albumin 3.5 g/dl (3.4-5.0) 01/31/20 13:45 Triglycerides 150 mg/dL (0-150) 01/31/20 13:45 Cholesterol 198 mg/dL (50-200) 01/31/20 13:45 Total LDL Cholesterol 108 mg/dL (5-100) H 01/31/20 13:45 HDL Cholesterol 56 mg/dL (40-60) 01/31/20 13:45 No leukocytosis. No anemia. Creatinine at baseline. Mild elevation of CK, no Rhabdo. Troponin undetectable. Lipid panel improved from 11/2019 when CVA was diagnosed. Pt reported no complaints. 01/31/20 14:58 CT head report: Hermilo Rodriguez Name: AGUSTIN MELTON JR DEPARTMENT OF RADIOLOGY Phys: Leanna Perrin RESIDENT : 1950 Age: 69 Sex: M [facility] Acct: [id number] Loc: [address] Exam Date: 01/31/20 Status: [place] [address] Unit Number: [id number] EXAM#: TYPE/EXAM: RESULT: [id number] CT/HEAD CT WITHOUT CONTRAST Headaches. Evaluate for a right posterior cerebral artery territory stroke CT scan of the head without intravenous contrast Compared to prior study MRI of the brain dated 12/17/2019 There is mild volume loss and ventricular dilatation. Mild periventricular chronic microvascular ischemic disease changes are present. Low-attenuation foci are present at the site of previously visualized acute/subacute infarcts in the left frontal lobe at the level of the centrum semiovale, splenium of the corpus callosum and right parietal region. Dates subacute infarct versus encephalomalacia in the right occipital lobe at the site of previously described acute/subacute infarct. No mass lesion or intracranial hemorrhage are identified. No interval gross acute infarct is identified. Visualized paranasal sinuses and mastoid air cells are well aerated. Calcification of the cavernous carotid arteries are present. The calvarium is intact IMPRESSION: Low-attenuation foci at the site of previously described acute/subacute infarcts now representing late subacute versus chronic infarcts, as described above. No gross CT evidence of an acute infarct is identified. Correlate clinically to determine further evaluation and follow-up. Reported By: Felix Balderrama MD 01/31/20 6133 Pt reported no complaints. Requesting discharge. Exam unchanged. Pt appears well. Alert and oriented x3. Pt discharged. Discharge - Discharge Information Problems reviewed: Yes Clinical Impression/Diagnosis: Headache Condition: Improved Disposition: HOME - Admission No - Follow up/Referral Referrals: Tristan Fraire [Primary Care Provider] - - Patient Discharge Instructions Patient Printed Discharge Instructions: DI for Headache Additional Instructions: Follow up with your primary care doctor within 3 days regarding your ER visit. Your care is not complete until you follow up. Bring all paperwork given to your today to your appointment. Take Tylenol 1000 mg every 8 hours as needed for headache. Do not take more than 4000 mg of Tylenol in 24 hours, as this is toxic. Drink water throughout the day. Get 8 hours of sleep a night. Return to the Emergency Department for increasing pain, visual changes, num bness, weakness, dizziness, chest pain, shortness of breath, changes to gait, changes to speech, drooping of face, fever, or any other new, worsening or concerning symptoms. - Post Discharge Activity
[2020-01-31 13:53] LABS: BASO % 1.3 % (0-2.0); EOS % 5.7 % (0-4.5); HEMATOCRIT 40.7 % (35.4-49); HEMOGLOBIN 14.3 GM/dL (11.7-16.9); LYMPH % 22.5 % (8-40); MCH 31.3 pg (25.7-33.7); MCHC 35.1 g/dl (32.0-35.9); MEAN CELL VOLUME 89.3 fl (80-96); MEAN PLT VOLUME 7.3 fl (7.5-11.1); MONO % 13.6 % (3.8-10.2); NEUT % 56.9 % (42.8-82.8); PLATELET COUNT 288 K/MM3 (134-434); RBC 4.55 M/mm3 (4.00-5.60); RDW 14.2 % (11.9-15.9); WHITE BLOOD COUNT 6.7 K/mm3 (4.0-10.0)
[2020-01-31 14:09] LABS: INR 0.96 (0.83-1.09); PROTHROMBIN TIME (PATIENT) 11.3 SEC (9.7-13.0)
[2020-01-31 14:10] LABS: ALBUMIN 3.5 g/dl (3.4-5.0); ALK PHOS 127 U/L (45-117); ANION GAP 8 MMOL/L (8-16); BILIRUBIN,TOTAL 0.4 mg/dL (0.2-1); BLOOD UREA NITROGEN 19.2 mg/dL (7-18); CALCIUM 8.5 mg/dL (8.5-10.1); CHLORIDE 106 mmol/L (98-107); CHOLESTEROL 198 mg/dL (50-200); CO2 25 mmol/L (21-32); CREATININE 1.5 mg/dL (0.55-1.3); GLUCOSE,RANDOM 133 mg/dL (74-106); HDL CHOLESTEROL 56 mg/dL (40-60); LDL CHOLESTEROL (ONLY SJRH) 108 mg/dL (5-100); POTASSIUM 3.9 mmol/L (3.5-5.1); SGOT/AST 34 U/L (15-37); SGPT/ALT 50 U/L (13-61); SODIUM 140 mmol/L (136-145); TOT PROT 7.3 g/dl (6.4-8.2); TRIGLYCERIDES 150 mg/dL (0-150)
[2020-01-31 14:12] LABS: ACTIVATED PTT 33.2 SECONDS (25.2-36.5)
--- NOTE | 2020-01-31 15:13 | PDOC ---
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 Patient reports that his symptoms have now completely resolved - Physicial Exam PE: 01/31/20 15:09 EXAMINATION CONSTITUTIONAL: alert, awake; well-nourished; in no apparent distress HEAD: Normocephalic; atraumatic EYES: PERRL; EOM intact ENMT: External appears normal; normal oropharynx NECK: Supple; non-tender; no cervical lymphadenopathy CARD: Normal S1, S2; no murmurs, rubs, or gallops RESP: Normal chest excursion with respiration; breath sounds clear and equal bilaterally; no wheezes, rhonchi, or rales ABD: Soft, non-distended; non-tender; no palpable organomegaly, no palpable hernias EXT: Normal ROM in all four extremities; non-tender to palpation; distal pulses intact SKIN: Warm, dry, no rash NEURO: AO x3; cranial nerves II through XII are grossly intact; motor is five 5 x 4; left upper extremity drift and abnormal [id number] noted. 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 EKG reveals inverted T waves in the lateral leads consistent with previous. CT of head shows no evidence of acute intracranial hemorrhage. Patient's neurological evaluation is at baseline. I do not suspect subarachnoid hemorrhage or CVA at this time. Will discharge with outpatient follow-up.
[2020-01-31 15:17] VITALS: BP 160/100; PULSE 90
--- NOTE | 2020-02-01 09:51 | EKG ---
Test Reason : Blood Pressure : / mmHG Vent. Rate : 090 BPM Atrial Rate : 090 BPM P-R Int : 172 ms QRS Dur : 092 ms QT Int : 374 ms P-R-T Axes : 057 -35 121 degrees QTc Int : 457 ms NORMAL SINUS RHYTHM LEFT AXIS DEVIATION T WAVE ABNORMALITY, CONSIDER LATERAL ISCHEMIA ABNORMAL ECG Confirmed by Jimbo Heller MD ([id number]) on 02/01/2020 9:51:44 AM Referred By: Confirmed By:Jimbo Heller MD
== END 2020-01-31 15:19 | disposition home or self-care (01) ==
LOC: JER 12:45
DX: R51 Headache (principal); Z86.73 Personal history of transient ischemic attack (TIA), and cerebral infarction without residual deficits; I63.89 Other cerebral infarction; K21.9 Gastro-esophageal reflux disease without esophagitis; I25.2 Old myocardial infarction; K76.0 Fatty (change of) liver, not elsewhere classified; E11.9 Type 2 diabetes mellitus without complications; Z87.891 Personal history of nicotine dependence
CPT/HCPCS: 36415; 70450-TC; 71045-TC-FY; 80053; 80061; 82550; 82553; 83721; 84484; 85025; 85610; 85730; 86850; 86900; 86901; 93005; 93010; 99285-25

== ENCOUNTER 2020-02-03 14:37 | Observation (INO) | payer OTHER ==
--- NOTE | 2020-02-03 15:12 | PDOC ---
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 Reports mild blood in the stool but has known hemorrhoids. Denies nausea/vomiting. Denies fever/chills but reports diaphoresis. Denies abdominal pain. Denies dysuria. Denies lower extremity swelling. Denies recent travel or sick contacts. Past History - Past Medical History Allergies/Adverse Reactions: Allergies Allergy/AdvReac Type Severity Reaction Status Date / Time No Known Allergies Allergy Verified 01/31/20 13:11 Home Medications: Ambulatory Orders Carvedilol 50 mg PO DAILY 03/27/15 Pantoprazole Sodium [Protonix] 40 mg PO DAILY 03/27/15 metFORMIN HCL [Metformin HCl] 500 mg PO BID 05/02/19 Clopidogrel Bisulfate [Plavix -] 75 mg PO DAILY #120 tablet 12/18/19 Walker [Ultra-Light Rollator] 1 each MC DAILY #1 each 12/18/19 Amlodipine Besylate [Norvasc -] 10 mg PO DAILY #90 tablet 12/21/19 Losartan Potassium 100 mg PO DAILY #90 tablet 12/21/19 Fluticasone Prop 0.05% Nasal [Flonase -] 1 - 2 spray NS BID #1 spray.pump 01/14/20 Carvedilol [Coreg -] 25 mg PO HS 01/31/20 Labetalol HCl [Normodyne -] 100 mg PO BID 01/31/20 Latanoprost 1 drop OU BID 01/31/20 Nortriptyline HCl [Pamelor -] 10 mg PO DAILY 01/31/20 Tamsulosin HCl [Flomax] 0.4 mg PO DAILY 01/31/20 metFORMIN HCL [Metformin HCl] 1 tab PO BID 01/31/20 Anemia: No Cardiac Disorders: Yes ([place]) CVA: Yes (12/2019) COPD: No CHF: No Diabetes: Yes GI Disorders: Yes (GERD) HTN: Yes Hypercholesterolemia: Yes - Surgical History Cardiac Surgery: No Neurologic Surgery: No - Immunization History Immunization Up to Date: Yes - Psycho Social/Smoking Cessation Hx Smoking History: Former smoker Have you smoked in the past 12 months: No If you are a former smoker, when did you quit?: in the 1970s Hx Alcohol Use: No Drug/Substance Use Hx: No Substance Use Type: None Hx Substance Use Treatment: No Review of Systems - Review of Systems Comments:: GENERAL/CONSTITUTIONAL: No fever or chills. No weakness._ HEAD, EYES, EARS, NOSE AND THROAT: No change in vision. No change in hearing. No sore throat._ CARDIOVASCULAR: No chest pain or shortness of breath_ RESPIRATORY: Denies cough, hemoptysis_ GASTROINTESTINAL: No nausea, vomiting. Reports diarrhea. GENITOURINARY: No dysuria, frequency, or change in urination._ MUSCULOSKELETAL: No joint or muscle swelling or pain. No neck or back pain._ SKIN: No rash_ NEUROLOGIC: No headache, vertigo, loss of consciousness, or change in strength/sensation._ ENDOCRINE: No increased thirst. No abnormal weight change_ HEMATOLOGIC/LYMPHATIC: No anemia, easy bleeding, or history of blood clots._ ALLERGIC/IMMUNOLOGIC: No hives or skin allergy._ *Physical Exam - Physical Exam GENERAL: Awake, alert, and oriented to person/place/time, in no acute distress_ HEAD: No signs of trauma, normocephalic, atraumatic _ EYES: PERRLA, EOMI, sclera anicteric, conjunctiva clear_ ENT: Hearing grossly normal, nares patent, oropharynx clear without exudates. No uvular deviation. Moist mucosa_ NECK: Normal ROM, supple, no lymphadenopathy, JVD, or masses_ LUNGS: No distress, speaks in full sentences, clear to auscultation bilaterally _ HEART: Regular rate and rhythm, normal S1 and S2, no murmurs appreciated, peripheral pulses normal and equal bilaterally._ ABDOMEN: Soft, nontender, normoactive bowel sounds. No guarding, no rebound. No masses_ EXTREMITIES: Normal inspection, Normal range of motion, no edema. No clubbing or cyanosis_ NEUROLOGICAL: Cranial nerves II through XII grossly intact. Normal speech, normal gait, no focal sensorimotor deficits _ SKIN: Warm, normal turgor, no rashes or lesions noted, mildly diaphoretic. RECTAL: Normal external exam. No obvious hemorrhoids. Empty rectal vault. No obvious masses felt. No rectal bleeding noted. ED Treatment Course - LABORATORY CBC & Chemistry Diagram: 02/04/20 07:30 02/04/20 07:30 Medical Decision Making - Medical Decision Making 02/03/20 15:15 69 y/o male presenting with diarrhea x5 that started today. No fever/chills. No immunocompromised. -cbc, cmp -IV fluids 02/03/20 15:48 Pt reassessed. Rectal temp 100.5. FOBT sent. Pt began feeling dizzy, winded, and orthopnic while undressing for rectal exam. Will start sepsis order set and work up. 02/03/20 16:16 EKG shows sinus tachycardia 119 bpm, left axis deviation (seen on prior exam 01/31/2020), QTc 450, peaked T waves seen on this EKG. 02/03/20 16:48 CXR negative for acute intrathoracic pathology. 02/03/20 19:00 Labs and UA reviewed. Laboratory Last Values WBC 10.4 K/mm3 (4.0-10.0) H 02/03/20 15:55 RBC 5.27 M/mm3 (4.00-5.60) 02/03/20 15:55 Hgb 16.0 GM/dL (11.7-16.9) 02/03/20 15:55 Hct 47.5 % (35.4-49) D 02/03/20 15:55 MCV 90.1 fl (80-96) 02/03/20 15:55 MCH 30.4 pg (25.7-33.7) 02/03/20 15:55 MCHC 33.7 g/dl (32.0-35.9) 02/03/20 15:55 RDW 14.4 % (11.9-15.9) 02/03/20 15:55 Plt Count 304 K/MM3 (134-434) 02/03/20 15:55 MPV 8.0 fl (7.5-11.1) 02/03/20 15:55 Absolute Neuts (auto) 9.3 K/mm3 (1.5-8.0) H 02/03/20 15:55 Neutrophils % 89.4 % (42.8-82.8) H D 02/03/20 15:55 Lymphocytes % 2.2 % (8-40) L D 02/03/20 15:55 Monocytes % 6.6 % (3.8-10.2) 02/03/20 15:55 Eosinophils % 1.5 % (0-4.5) 02/03/20 15:55 Basophils % 0.3 % (0-2.0) 02/03/20 15:55 Nucleated RBC % 0 % (0-0) 02/03/20 15:55 PT with INR 13.00 SEC (9.7-13.0) 02/03/20 16:25 INR 1.10 (0.83-1.09) H 02/03/20 16:25 PTT (Actin FS) 29.7 SECONDS (25.2-36.5) 02/03/20 16:25 VBG pH Cancelled 02/03/20 15:56 POC VBG pCO2 Cancelled 02/03/20 15:56 POC VBG pO2 Cancelled 02/03/20 15:56 VBG HCO3 Cancelled 02/03/20 15:56 VBG O2 Sat (Mark) Cancelled 02/03/20 15:56 VBG Base Excess Cancelled 02/03/20 15:56 Sodium 137 mmol/L (136-145) 02/03/20 15:55 Potassium 4.7 mmol/L (3.5-5.1) 02/03/20 15:55 Chloride 103 mmol/L (98-107) 02/03/20 15:55 Carbon Dioxide 25 mmol/L (21-32) 02/03/20 15:55 Anion Gap 8 MMOL/L (8-16) 02/03/20 15:55 BUN 25.6 mg/dL (7-18) H 02/03/20 15:55 Creatinine 1.6 mg/dL (0.55-1.3) H 02/03/20 15:55 Est GFR (CKD-EPI)AfAm 50.20 02/03/20 15:55 Est GFR (CKD-EPI)NonAf 43.31 02/03/20 15:55 Random Glucose 164 mg/dL (74-106) H 02/03/20 15:55 Lactic Acid 1.3 mmol/L (0.4-2.0) 02/03/20 20:30 Calcium 8.9 mg/dL (8.5-10.1) 02/03/20 15:55 Total Bilirubin 0.5 mg/dL (0.2-1) 02/03/20 15:55 AST 34 U/L (15-37) 02/03/20 15:55 ALT 53 U/L (13-61) 02/03/20 15:55 Alkaline Phosphatase 104 U/L (45-117) 02/03/20 15:55 Creatine Kinase 553 U/L (26-308) H 02/03/20 15:55 Creatine Kinase Index 1.1 % (0.0-5.0) 02/03/20 15:55 CK-MB (CK-2) 6.3 ng/mL (0.5-3.6) H 02/03/20 15:55 Troponin I < 0.02 ng/ml (0.00-0.05) 02/03/20 15:55 B-Natriuretic Peptide 70.4 pg/ml (5-125) 02/03/20 15:55 Total Protein 7.9 g/dl (6.4-8.2) 02/03/20 15:55 Albumin 3.8 g/dl (3.4-5.0) 02/03/20 15:55 Urine Color Yellow 02/03/20 17:37 Urine Appearance Clear 02/03/20 17:37 Urine pH 5.5 (5.0-8.0) 02/03/20 17:37 Ur Specific [place] 1.025 (1.010-1.035) 02/03/20 17:37 Urine Protein 3+ (NEGATIVE) H 02/03/20 17:37 Urine Glucose (UA) Negative (NEGATIVE) 02/03/20 17:37 Urine Ketones Negative (NEGATIVE) 02/03/20 17:37 Urine Blood Negative (NEGATIVE) 02/03/20 17:37 Urine Nitrite Negative (NEGATIVE) 02/03/20 17:37 Urine Bilirubin Negative (NEGATIVE) 02/03/20 17:37 Urine Urobilinogen 0.2 mg/dL (0.2-1.0) 02/03/20 17:37 Ur Leukocyte Esterase Negative (NEGATIVE) 02/03/20 17:37 Urine WBC (Auto) 1 /hpf (0-5) 02/03/20 17:37 Urine RBC (Auto) 2 /hpf (0-4) 02/03/20 17:37 Urine Casts (Auto) 0 /lpf (0-8) 02/03/20 17:37 U Epithel Cells (Auto) 1.3 /HPF (0-5/HPF) 02/03/20 17:37 Urine Bacteria (Auto) 0.7 /hpf (NEGATIVE) 02/03/20 17:37 Stool Occult Blood Negative (NEGATIVE) 02/03/20 15:16 Influenza A (Rapid) Negative (Negative) 02/03/20 15:56 Influenza B (Rapid) Negative (Negative) 02/03/20 15:56 Pt signed out to Dr. Moore for admission. Discharge - Discharge Information Problems reviewed: Yes Clinical Impression/Diagnosis: Tachycardia Nausea & vomiting Qualifiers: Vomiting type: unspecified Vomiting Intractability: non-intractable Qualified Code(s): R11.2 - Nausea with vomiting, unspecified Diarrhea Qualifiers: Diarrhea type: unspecified type Qualified Code(s): R19.7 - Diarrhea, unspecified Condition: Stable - Follow up/Referral - Patient Discharge Instructions - Post Discharge Activity
[2020-02-03] MEDS ORDERED: SODIUM CHLORIDE 0.9% 500 ML INFUS.BAG IV ONE (15:13)
[2020-02-03] MEDS ORDERED: ONDANSETRON *ODT* 4 MG TABLET SL ONE (15:50)
[2020-02-03] MEDS ORDERED: ONDANSETRON *ODT* 4 MG TABLET ONE (15:58)
[2020-02-03] MEDS ORDERED: ACETAMINOPHEN INJECTION 100 ML IVPB ONE (15:59)
[2020-02-03] MEDS ORDERED: ACETAMINOPHEN 1000 MG/100 ML VIAL (NON FORMULARY) IVPB ONE (16:00)
--- NOTE | 2020-02-03 16:07 | PDOC ---
Attending Attestation - Resident Resident Name: Jimbo Levy - ED Attending Attestation I have performed the following: I have examined & evaluated the patient, The case was reviewed & discussed with the resident, I agree w/resident's findings & plan - HPI HPI: 02/03/20 16:03 6 presents with nausea/vomiting/diarrhea today. Patient was in his usual state of -[id number] male with history of hypertension, diabetes, CVA, distant [place], no recent travel or sick contacts or diet changes, awoke this morning with nonbloody nonbilious nausea and vomiting and nonbloody diarrhea. No fevers or chills, no abdominal pain, presents for evaluation. Never had endoscopy or colonoscopy, denies any history of recurring GI infections, no recent antibiotics but was recently hospitalized 2 months ago. - Physicial Exam PE: 02/03/20 16:04 Febrile, tachycardic, blood pressure stable, O2 sat normal Well-appearing seated upright in stretcher speaking full sentences in no acute distress Slightly warm to touch, pupils equal round reactive to light, extraocular movements intact, no jaundice or pallor Heart is regular tachycardia, lungs are clear Abdomen is soft/nontender/nondistended, no guarding or rebound Neurologically nonfocal - Medical Decision Making 02/03/20 16:04 69-year-old male with multiple medical problems presents with nausea/vomiting/diarrhea that began today without abdominal pain but associated with fever/chills, benign abdominal exam without findings to suggest focal infectious process, hemodynamically stable. Presentation seems most consistent with gastroenteritis, question food mediated versus viral, less consistent with diverticulitis or colitis. Patient is dehydrated and febrile, rule out DKA. Sepsis protocol initiated Antipyretics, IV fluids Antacid, anti-emetic EKG is sinus tachycardia, slightly peaked T waves in V1 through V3 without ST elevation but new compared to recent visit 3 days ago. Rule out electrolyte abnormality. Reassess, disposition accordingly. At this time, no indication for emergent imaging. Heart Score/ECG Review #1 ECG reviewed & interpreted by me at: 15:50 General ECG Interpretation: Sinus Rhythm (tachy at 119), Normal Intervals (qtc 450), No acute ischemic changes (TWI I/AVL, peaked T V1-V3) Compared to previous ECG there are: Changes noted (TWI I/AVL unchanged, peaked T new c/w 01/31/20)
[2020-02-03 16:40] LABS: BASO % 0.3 % (0-2.0); EOS % 1.5 % (0-4.5); HEMATOCRIT 47.5 % (35.4-49); LYMPH % 2.2 % (8-40); MCH 30.4 pg (25.7-33.7); MCHC 33.7 g/dl (32.0-35.9); MEAN CELL VOLUME 90.1 fl (80-96); MONO % 6.6 % (3.8-10.2); NEUT % 89.4 % (42.8-82.8); PLATELET COUNT 304 K/MM3 (134-434); RBC 5.27 M/mm3 (4.00-5.60); RDW 14.4 % (11.9-15.9); WHITE BLOOD COUNT 10.4 K/mm3 (4.0-10.0)
[2020-02-03 17:03] LABS: ALBUMIN 3.8 g/dl (3.4-5.0); BILIRUBIN,TOTAL 0.5 mg/dL (0.2-1); BLOOD UREA NITROGEN 25.6 mg/dL (7-18); CALCIUM 8.9 mg/dL (8.5-10.1); CREATININE 1.6 mg/dL (0.55-1.3); POTASSIUM 4.7 mmol/L (3.5-5.1); TOT PROT 7.9 g/dl (6.4-8.2)
[2020-02-03 17:07] LABS: INR 1.1 (0.83-1.09)
[2020-02-03 17:10] LABS: ACTIVATED PTT 29.7 SECONDS (25.2-36.5)
[2020-02-03 17:15] LABS: N-TERMINAL BNP 70.4 pg/ml (5-125)
[2020-02-03 18:54] LABS: EPI CELLS 1.3 /HPF (0-5/HPF); HYALINE CASTS 0 /lpf (0-8); PH,URINE 5.5 (5.0-8.0); URINE APPEARANCE CLEAR; URINE BACTERIA 0.7 /hpf (NEGATIVE); URINE BILIRUBIN NEGATIVE (NEGATIVE); URINE COLOR YELLOW; URINE GLUCOSE (UA) NEGATIVE (NEGATIVE); URINE KETONE NEGATIVE (NEGATIVE); URINE LEUK ESTERASE NEGATIVE (NEGATIVE); URINE NITRITE NEGATIVE (NEGATIVE); URINE PROTEIN 3+ (NEGATIVE); URINE RBC 2 /hpf (0-4); URINE UROBILINOGEN 0.2 mg/dL (0.2-1.0); URINE WBC 1 /hpf (0-5)
[2020-02-03] MEDS ORDERED: ONDANSETRON 4 MG/2 ML VIAL IVPB STA (19:47)
[2020-02-03] MEDS ORDERED: ONDANSETRON 4 MG/2 ML VIAL ONE (20:05)
--- NOTE | 2020-02-03 20:05 | PDOC ---
*Physical Exam - Vital Signs Last Vital Signs Temp Pulse Resp BP Pulse Ox 99.7 F H 119 H 16 159/84 96 02/03/20 15:23 02/03/20 15:23 02/03/20 15:23 02/03/20 15:23 02/03/20 15:23 ED Treatment Course - LABORATORY CBC & Chemistry Diagram: 02/03/20 15:55 02/03/20 15:55 - ADDITIONAL ORDERS Additional order review: Laboratory Results 02/03/20 02/03/20 02/03/20 17:37 16:25 15:56 PT with INR 13.00 INR 1.10 H PTT (Actin FS) 29.7 VBG pH POC VBG pCO2 POC VBG pO2 VBG HCO3 VBG O2 Sat (Mark) VBG Base Excess Sodium Potassium Chloride Carbon Dioxide Anion Gap BUN Creatinine Est GFR (CKD-EPI)AfAm Est GFR (CKD-EPI)NonAf Random Glucose Lactic Acid 2.0 Calcium Total Bilirubin AST ALT Alkaline Phosphatase Creatine Kinase Creatine Kinase Index CK-MB (CK-2) Troponin I B-Natriuretic Peptide Total Protein Albumin Urine Color Yellow Urine Appearance Clear Urine pH 5.5 Ur Specific [place] 1.025 Urine Protein 3+ H Urine Glucose (UA) Negative Urine Ketones Negative Urine Blood Negative Urine Nitrite Negative Urine Bilirubin Negative Urine Urobilinogen 0.2 Ur Leukocyte Esterase Negative Urine WBC (Auto) 1 Urine RBC (Auto) 2 Urine Casts (Auto) 0 U Epithel Cells (Auto) 1.3 Urine Bacteria (Auto) 0.7 Stool Occult Blood 02/03/20 02/03/20 02/03/20 15:56 15:55 15:55 PT with INR INR PTT (Actin FS) VBG pH Cancelled POC VBG pCO2 Cancelled POC VBG pO2 Cancelled VBG HCO3 Cancelled VBG O2 Sat (Mark) Cancelled VBG Base Excess Cancelled Sodium 137 Potassium 4.7 Chloride 103 Carbon Dioxide 25 Anion Gap 8 BUN 25.6 H Creatinine 1.6 H Est GFR (CKD-EPI)AfAm 50.20 Est GFR (CKD-EPI)NonAf 43.31 Random Glucose 164 H Lactic Acid Calcium 8.9 Total Bilirubin 0.5 AST 34 ALT 53 Alkaline Phosphatase 104 Creatine Kinase 553 H Creatine Kinase Index 1.1 CK-MB (CK-2) 6.3 H Troponin I < 0.02 B-Natriuretic Peptide 70.4 Total Protein 7.9 Albumin 3.8 Urine Color Urine Appearance Urine pH Ur Specific [place] Urine Protein Urine Glucose (UA) Urine Ketones Urine Blood Urine Nitrite Urine Bilirubin Urine Urobilinogen Ur Leukocyte Esterase Urine WBC (Auto) Urine RBC (Auto) Urine Casts (Auto) U Epithel Cells (Auto) Urine Bacteria (Auto) Stool Occult Blood 02/03/20 15:16 PT with INR INR PTT (Actin FS) VBG pH POC VBG pCO2 POC VBG pO2 VBG HCO3 VBG O2 Sat (Mark) VBG Base Excess Sodium Potassium Chloride Carbon Dioxide Anion Gap BUN Creatinine Est GFR (CKD-EPI)AfAm Est GFR (CKD-EPI)NonAf Random Glucose Lactic Acid Calcium Total Bilirubin AST ALT Alkaline Phosphatase Creatine Kinase Creatine Kinase Index CK-MB (CK-2) Troponin I B-Natriuretic Peptide Total Protein Albumin Urine Color Urine Appearance Urine pH Ur Specific [place] Urine Protein Urine Glucose (UA) Urine Ketones Urine Blood Urine Nitrite Urine Bilirubin Urine Urobilinogen Ur Leukocyte Esterase Urine WBC (Auto) Urine RBC (Auto) Urine Casts (Auto) U Epithel Cells (Auto) Urine Bacteria (Auto) Stool Occult Blood Negative 02/03/20 15:55 RBC 5.27 MCV 90.1 MCHC 33.7 RDW 14.4 MPV 8.0 Neutrophils % 89.4 H D Lymphocytes % 2.2 L D Monocytes % 6.6 Eosinophils % 1.5 Basophils % 0.3 - Medications Given in the ED: ED Medications Discontinued Medications Generic Name Dose Route Start Last Admin Trade Name Freq PRN Reason Stop Dose Admin Acetaminophen 1,000 mg 02/03/20 16:00 02/03/20 16:18 Ofirmev Injection - IVPB 02/03/20 16:01 1,000 mg ONCE ONE Administration Ondansetron HCl 4 mg 02/03/20 15:50 02/03/20 15:57 Zofran Odt - SL 02/03/20 15:51 4 mg ONCE ONE Administration Ondansetron HCl 4 mg 02/03/20 19:47 02/03/20 19:55 Zofran Injection IVPB 02/03/20 19:48 4 mg ONCE STA Administration Sodium Chloride 1,000 ml 02/03/20 15:13 02/03/20 15:27 Normal Saline - IV 02/03/20 15:14 1,000 ml ONCE ONE Administration Medical Decision Making - Medical Decision Making 02/03/20 20:04 signed out from day team. 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 Reports mild blood in the stool but has known hemorrhoids. vomiting at home, projectile with 2 episodes here. Denies fever/chills but reports diaphoresis. Denies abdominal pain. Denies dysuria. Denies lower extremity swelling. Denies recent travel or sick contacts. SIRS criteria met. labs show mild leukocytosis. all other labs wnl. no abdominal tenderness. ua negative for infection. given Zofran, NS and ofirmev, given comorbidities, tachycadia. will admit obs. tachycardia could be 2/2 dehydration v. medication not being absorbed. will give LR. Discharge - Discharge Information Problems reviewed: Yes Clinical Impression/Diagnosis: Tachycardia Nausea & vomiting Qualifiers: Vomiting type: unspecified Vomiting Intractability: non-intractable Qualified Code(s): R11.2 - Nausea with vomiting, unspecified Diarrhea Qualifiers: Diarrhea type: unspecified type Qualified Code(s): R19.7 - Diarrhea, unspecified Condition: Stable - Admission Yes - Follow up/Referral - Patient Discharge Instructions - Post Discharge Activity
[2020-02-03] MEDS ORDERED: ENOXAPARIN NA (PORCINE) 40 MG/0.4 ML DISP.SYRIN SQ SCH (20:30)
--- NOTE | 2020-02-03 20:42 | HP ---
CHIEF COMPLAINT: intractable vomiting PCP: Dr. Damian Fraire HISTORY OF PRESENT ILLNESS: This is a 69 y/o M with a PMHx of ischemic stroke mth ago(on ASA,Plavix, statin), [place](20yrs ago no PCI), DM, HTN, HLD who presents with intractable projective vomiting and diarrhea since this AM. What prompted him to come in was that he was unable to keep any food down and he felt very warm. Pt states he had diarrhea brownish in color and chills all day. He could not keep even H2O down. Denies any recent abx use or sick contacts. Denies any hematochezia, melena, abd pain, cp, recent travel. ER course was notable for: (1)IV tylenol given for fever (2)BC's urinalysis drawn (3) Recent Travel: none PAST SURGICAL HISTORY: Social History: Smoking:denies Alcohol:denies Drugs: denies Allergies No Known Allergies Allergy (Verified 01/31/20 13:11) HOME MEDICATIONS: Home Medications Medication Instructions Recorded Carvedilol 50 mg PO DAILY 03/27/15 Pantoprazole Sodium [Protonix] 40 mg PO DAILY 03/27/15 metFORMIN HCL [Metformin HCl] 500 mg PO BID 05/02/19 Clopidogrel Bisulfate [Plavix -] 75 mg PO DAILY #120 tablet 12/18/19 Walker [Ultra-Light Rollator] 1 each MC DAILY #1 each 12/18/19 Amlodipine Besylate [Norvasc -] 10 mg PO DAILY #90 tablet 12/21/19 Losartan Potassium 100 mg PO DAILY #90 tablet 12/21/19 Fluticasone Prop 0.05% Nasal 1 - 2 spray NS BID #1 spray.pump 01/14/20 [Flonase -] Carvedilol [Coreg -] 25 mg PO HS 01/31/20 Labetalol HCl [Normodyne -] 100 mg PO BID 01/31/20 Latanoprost 1 drop OU BID 01/31/20 Nortriptyline HCl [Pamelor -] 10 mg PO DAILY 01/31/20 Tamsulosin HCl [Flomax] 0.4 mg PO DAILY 01/31/20 metFORMIN HCL [Metformin HCl] 1 tab PO BID 01/31/20 REVIEW OF SYSTEMS negative except above PHYSICAL EXAMINATION Vital Signs - 24 hr 02/03/20 02/03/20 15:14 15:23 Temperature 100.5 F H 99.7 F H Pulse Rate 119 H 119 H Respiratory 16 16 Rate Blood Pressure 162/89 159/84 O2 Sat by Pulse 96 96 Oximetry (%) GENERAL: Awake, alert, and fully oriented, in no acute distress. HEAD: Normal with no signs of trauma. EYES: Pupils equal, round and reactive to light, extraocular movements intact, sclera anicteric, conjunctiva clear. No lid lag. EARS, NOSE, THROAT: Ears normal, nares patent, oropharynx clear without exud ates. Moist mucous membranes. NECK: Normal range of motion, supple without lymphadenopathy, JVD, or masses. LUNGS: Breath sounds equal, clear to auscultation bilaterally. No wheezes, and no crackles. No accessory muscle use. HEART: Regular rate and rhythm, normal S1 and S2 without murmur, rub or gallop. ABDOMEN: Soft, nontender, not distended, normoactive bowel sounds, no guarding, no rebound, no masses. No hepatomegaly or splenomegaly. MUSCULOSKELETAL: Normal range of motion at all joints. No bony deformities or tenderness. No CVA tenderness. UPPER EXTREMITIES: 2+ pulses, warm, well-perfused. No cyanosis. No clubbing. No peripheral edema. LOWER EXTREMITIES: 2+ pulses, warm, well-perfused. No calf tenderness. No peripheral edema. NEUROLOGICAL: Cranial nerves II-XII intact. Normal speech. Normal gait. PSYCHIATRIC: Cooperative. Good eye contact. Appropriate mood and affect. SKIN: Warm, dry, normal turgor, no rashes or lesions noted, normal capillary refill. Laboratory Results - last 24 hr 02/03/20 02/03/20 02/03/20 15:16 15:55 15:55 WBC 10.4 H RBC 5.27 Hgb 16.0 Hct 47.5 D MCV 90.1 MCH 30.4 MCHC 33.7 RDW 14.4 Plt Count 304 MPV 8.0 Absolute Neuts (auto) 9.3 H Neutrophils % 89.4 H D Lymphocytes % 2.2 L D Monocytes % 6.6 Eosinophils % 1.5 Basophils % 0.3 Nucleated RBC % 0 PT with INR INR PTT (Actin FS) VBG pH POC VBG pCO2 POC VBG pO2 VBG HCO3 VBG O2 Sat (Mark) VBG Base Excess Sodium 137 Potassium 4.7 Chloride 103 Carbon Dioxide 25 Anion Gap 8 BUN 25.6 H Creatinine 1.6 H Est GFR (CKD-EPI)AfAm 50.20 Est GFR (CKD-EPI)NonAf 43.31 Random Glucose 164 H Lactic Acid Calcium 8.9 Total Bilirubin 0.5 AST 34 ALT 53 Alkaline Phosphatase 104 Creatine Kinase Creatine Kinase Index CK-MB (CK-2) Troponin I B-Natriuretic Peptide Total Protein 7.9 Albumin 3.8 Urine Color Urine Appearance Urine pH Ur Specific [place] Urine Protein Urine Glucose (UA) Urine Ketones Urine Blood Urine Nitrite Urine Bilirubin Urine Urobilinogen Ur Leukocyte Esterase Urine WBC (Auto) Urine RBC (Auto) Urine Casts (Auto) U Epithel Cells (Auto) Urine Bacteria (Auto) Stool Occult Blood Negative Influenza A (Rapid) Influenza B (Rapid) ASSESSMENT/PLAN: This is a 69 y/o M with a PMHx of ischemic stroke mth ago(on ASA,Plavix, statin), [place](20yrs ago no PCI), DM, HTN, HLD who presents with intractable projective vomiting and diarrhea since this AM. What prompted him to come in was that he was unable to keep any food down and he felt very warm. #Intractable vomiting - likely gastroenteritis - given fever, and severe diarrhea/abd pain, with will Rx with levaquin 750 daily, 500 q8H flagyl. - stool o&p, c&s, calprotectin, c diff pcr - zofran prn for nausea, for singultus can start chlorpromazine prn - IV LR 42/hr hydration - Cr:1.6 (baseline 1.4-1.8) - npo advance as tolerated. - could do imaging if doesn't improve but no abdominal tenderness on exam - flu negative - UA negative for infection 3+ protein - urine culture - blood culture pending - tylenol prn for fever, if continues to have diarrhea and fevers send stool studies. #CKD - baseline Cr 1.4-1.8 no acute kidney injury at this time - continue ARB given pt on this as o/p - no indication for PLANT TAXONOMIST - electrolytes wnl - gentle hydration provided #DM - continue insulin sliding scale - hold home anti-hyperglyemic agents #HTN - Continue home meds #HLD - Continue statin #Stroke Hx - continue asa 81, plavix 75, and statin #Gerd - c/w protonix 40 mg daily DVT ppx: Plavix 75 daily Visit type - Emergency Visit Emergency Visit: Yes ED Registration Date: 02/03/20 Care time: The patient presented to the Emergency Department on the above date and was hospitalized for further evaluation of their emergent condition. - New Patient This patient is new to me today: Yes Date on this admission: 02/04/20 - Critical Care Critical Care patient: No ATTENDING PHYSICIAN STATEMENT I saw and evaluated the patient. I reviewed the resident's note and discussed the case with the resident. I agree with the resident's findings and plan as documented. SUBJECTIVE: OBJECTIVE: ASSESSMENT AND PLAN:
[2020-02-03] MEDS ORDERED: LACTATED RINGERS SOLUTION 1000 ML INFUS.BAG IV ONE (20:55)
[2020-02-03] MEDS ORDERED: LACTATED RINGERS SOLUTION 1,000 ML/1,000 ML INFUS.BAG IV SCH ×2 (21:00→23:45)
[2020-02-03] MEDS: PANTOPRAZOLE 40 MG TABLET PO SCH (21:37)
--- NOTE | 2020-02-03 22:00 | PN ---
Teaching Attending Note Name of Resident: Quincy Cottrell ATTENDING PHYSICIAN STATEMENT I saw and evaluated the patient. I reviewed the resident's note and discussed the case with the resident. I agree with the resident's findings and plan as documented. SUBJECTIVE: Male with a history of hypertension, diabetes mellitus type 2, NC, dyslipidemia, CVA in November 2018 involving right PCAischemic stroke, presenting with 1 day of diarrhea and vomiting. Patient reports about 7 episodes of nonbloody diarrhea and 7 episodes of nonbloody vomiting. Patient reports eating canned tuna, and peanut butter shortly prior to episode of vomiting. As per patient's , she also ate the same tuna and did not experience any of the same symptoms.Patient denied taking any antibiotics recently. OBJECTIVE: Last Vital Signs Temp Pulse Resp BP Pulse Ox 99.7 F H 119 H 16 159/84 96 02/03/20 15:23 02/03/20 15:23 02/03/20 15:23 02/03/20 15:23 02/03/20 15:23 On physical exam patient was not in any acute distress, head was normocephalic and atraumatic. Mucous membranes were dry. Skin with good skin turgor. Lungs are clear to auscultation bilaterally and cardiovascular exam was S1, S2 with regular rate and rhythm. Abdomen was benign, soft, obese, nontender to palpation with normal bowel sounds. Abnormal Lab Results 02/03/20 02/03/20 02/03/20 15:55 15:55 15:55 WBC 10.4 H Absolute Neuts (auto) 9.3 H Neutrophils % 89.4 H D Lymphocytes % 2.2 L D INR POC VBG pO2 VBG O2 Sat (Mark) BUN 25.6 H Creatinine 1.6 H Random Glucose 164 H Creatine Kinase 553 H CK-MB (CK-2) 6.3 H Urine Protein 02/03/20 02/03/20 02/04/20 16:25 17:37 01:20 WBC Absolute Neuts (auto) Neutrophils % Lymphocytes % INR 1.10 H POC VBG pO2 160 H VBG O2 Sat (Mark) 99.1 H BUN Creatinine Random Glucose Creatine Kinase CK-MB (CK-2) Urine Protein 3+ H Chest x-ray reviewed, mediastinum is not widened, lungs remain clear. ASSESSMENT AND PLAN: 69-year-old male with what appears to be gastroenteritis with fever of 100.5 Fahrenheit and tachycardia. Mild leukocytosis at 10.4. At this time would manage with IV fluid hydration and Imodium for symptom management. We will also give antibiotic therapy for possible bacterial gastroenteritis as patient was noted to have high number of bowel movements up to 7/day and fever of 100.5 Fahrenheit. Admit to [facility] Levofloxacin 750 mg IV daily, Metronidazole 500 mg IV every 8 hours Send stool leukocytes, WBC, ova and parasites, stool for C. difficile toxin PCR IV fluid hydration Zofran IV as needed if nausea or vomiting Check orthostatics Imodium PRN if diarrhea Check electrolytes including magnesium and phosphorus and replete PRN #History of CVA in November 2019 Continue with Plavix and statin #Diabetes mellitus NovoLog sliding scale A1c Basal insulin Would advance diet starting with clear liquid diet DVT prophylaxisheparin subcutaneously
[2020-02-03] MEDS ORDERED: LABETALOL HCL 100 MG TABLET (FP) ONE (22:11)
[2020-02-03] MEDS ORDERED: INSULIN (NOVOLOG) ASPART 100 UNITS/ML 10ML VIAL ONE (22:11)
[2020-02-03] MEDS ORDERED: chlorproMAZINE HCL 25 MG/1 ML AMP IM ONE (23:34)
[2020-02-03] MEDS: LABETALOL HCL 100 MG TABLET (FP) PO SCH (23:42)
[2020-02-03] MEDS ORDERED: SODIUM CHLORIDE 1,000 ML IV SCH (23:45)
[2020-02-03] MEDS: INSULIN (NOVOLOG) ASPART 100 UNITS/ML 10ML VIAL SQ SCH (23:54)
[2020-02-04] MEDS ORDERED: chlorproMAZINE HCL 25 MG/1 ML AMP ONE (00:14)
[2020-02-04] MEDS: FLUTICASONE PROP 0.05% 16 GM NASAL SPRAY NS SCH ×3 (01:01→21:20)
[2020-02-04] MEDS: LATANOPROST 0.005% OPHTH SOLN 2.5ML BOTTLE OU SCH ×3 (01:02→21:23)
[2020-02-04 01:49] LABS: VENOUS PC02 40.2 mmHg (38-52); VENOUS PH 7.39 (7.31-7.41)
[2020-02-04] MEDS ORDERED: HEPARIN NA (PORCINE) 5,000 UNITS/ML 1ML VIAL SQ SCH (06:00)
[2020-02-04] MEDS: INSULIN (NOVOLOG) ASPART 100 UNITS/ML 10ML VIAL SQ SCH ×4 (06:33→21:22)
[2020-02-04] MEDS ORDERED: LOPERAMIDE HCL 1 MG/5 ML UNIT DOSE CUP PO PRN (06:48)
[2020-02-04 08:57] LABS: HEMATOCRIT 41.2 % (35.4-49); MCH 30.7 pg (25.7-33.7); MEAN CELL VOLUME 90.4 fl (80-96); MEAN PLT VOLUME 8.3 fl (7.5-11.1); PLATELET COUNT 280 K/MM3 (134-434); RBC 4.56 M/mm3 (4.00-5.60); RDW 14.7 % (11.9-15.9)
[2020-02-04 09:36] LABS: ALBUMIN 3.2 g/dl (3.4-5.0); BILIRUBIN,TOTAL 0.5 mg/dL (0.2-1); BLOOD UREA NITROGEN 26.6 mg/dL (7-18); CALCIUM 8.4 mg/dL (8.5-10.1); CREATININE 1.6 mg/dL (0.55-1.3); MAGNESIUM 2.1 mg/dL (1.8-2.4); PHOSPHOROUS 3.3 mg/dL (2.5-4.9); POTASSIUM 4.2 mmol/L (3.5-5.1)
[2020-02-04] MEDS: HEPARIN NA (PORCINE) 5,000 UNITS/ML 1ML VIAL SQ SCH ×3 (09:36→21:20)
[2020-02-04] MEDS: LABETALOL HCL 100 MG TABLET (FP) PO SCH ×2 (09:37→21:22)
[2020-02-04] MEDS: TAMSULOSIN HCL 0.4 MG CAP PO SCH (09:37)
[2020-02-04] MEDS: amLODIPine BESYLATE 10 MG TABLET (FP) PO SCH (09:38)
[2020-02-04] MEDS: PANTOPRAZOLE 40 MG TABLET PO SCH (09:38)
[2020-02-04] MEDS: CLOPIDOGREL BISULFATE 75 MG TABLET (FP) PO SCH (09:38)
[2020-02-04] MEDS: LOSARTAN POTASSIUM 50 MG TABLET (FP) PO SCH (09:46)
[2020-02-04] MEDS: LACTATED RINGERS SOLUTION 1,000 ML/1,000 ML INFUS.BAG IV SCH (09:51)
[2020-02-04] MEDS ORDERED: LOSARTAN POTASSIUM 100 MG TABLET PO SCH (10:00)
[2020-02-04] MEDS ORDERED: WALKER MC SCH (10:00)
--- NOTE | 2020-02-04 10:18 | EKG ---
Test Reason : Blood Pressure : / mmHG Vent. Rate : 119 BPM Atrial Rate : 119 BPM P-R Int : 166 ms QRS Dur : 084 ms QT Int : 320 ms P-R-T Axes : 049 -42 094 degrees QTc Int : 450 ms SINUS TACHYCARDIA LEFT AXIS DEVIATION LEFT VENTRICULAR HYPERTROPHY WITH REPOLARIZATION ABNORMALITY ABNORMAL ECG WHEN COMPARED WITH ECG OF 31-JAN-2020 14:15, NO SIGNIFICANT CHANGE WAS FOUND Confirmed by Enoc Rosenthal ([id number]) on 02/04/2020 10:17:44 AM Referred By: Confirmed By:Enoc Rosenthal
[2020-02-04] MEDS: NORTRIPTYLINE HCL 10 MG CAPSULE PO SCH (11:43)
[2020-02-04] MEDS: ACETAMINOPHEN 325 MG TABLET (FP) PO PRN ×2 (13:30→21:21)
--- NOTE | 2020-02-04 16:02 | PN ---
Teaching Attending Note Name of Resident: Misael Maza ATTENDING PHYSICIAN STATEMENT I saw and evaluated the patient. I reviewed the resident's note and discussed the case with the resident. I agree with the resident's findings and plan as documented. SUBJECTIVE: Feeling better. Reports improivement in his diarrhea. No melena/hematochezia. Fever overnight. OBJECTIVE: Tmax 100.5, Hemodynamically Stable. Last Vital Signs Temp Pulse Resp BP Pulse Ox 98.6 F 112 H 18 162/66 98 02/04/20 04:41 02/04/20 10:00 02/04/20 10:00 02/04/20 10:00 02/04/20 09:00 HEENT - Atraumatic, Normocephalic. Heart - S1, S2, RRR Lungs - clear to auscultation Abdomen - Soft, non-tender. Bowel Sounds normal. Extremities - no edema, no calf tenderness. Laboratory Results - last 24 hr 02/03/20 02/03/20 02/03/20 15:16 15:55 15:55 WBC 10.4 H RBC 5.27 Hgb 16.0 Hct 47.5 D MCV 90.1 MCH 30.4 MCHC 33.7 RDW 14.4 Plt Count 304 MPV 8.0 Absolute Neuts (auto) 9.3 H Neutrophils % 89.4 H D Lymphocytes % 2.2 L D Monocytes % 6.6 Eosinophils % 1.5 Basophils % 0.3 Nucleated RBC % 0 PT with INR INR PTT (Actin FS) VBG pH POC VBG pCO2 POC VBG pO2 VBG HCO3 VBG O2 Sat (Mark) VBG Base Excess Sodium 137 Potassium 4.7 Chloride 103 Carbon Dioxide 25 Anion Gap 8 BUN 25.6 H Creatinine 1.6 H Est GFR (CKD-EPI)AfAm 50.20 Est GFR (CKD-EPI)NonAf 43.31 POC Glucometer Random Glucose 164 H Lactic Acid Calcium 8.9 Phosphorus Magnesium Total Bilirubin 0.5 AST 34 ALT 53 Alkaline Phosphatase 104 Creatine Kinase Creatine Kinase Index CK-MB (CK-2) Troponin I B-Natriuretic Peptide Total Protein 7.9 Albumin 3.8 Urine Color Urine Appearance Urine pH Ur Specific [place] Urine Protein Urine Glucose (UA) Urine Ketones Urine Blood Urine Nitrite Urine Bilirubin Urine Urobilinogen Ur Leukocyte Esterase Urine WBC (Auto) Urine RBC (Auto) Urine Casts (Auto) U Epithel Cells (Auto) Urine Bacteria (Auto) Stool Occult Blood Negative Influenza A (Rapid) Influenza B (Rapid) 02/03/20 02/03/20 02/03/20 15:55 15:56 15:56 WBC RBC Hgb Hct MCV MCH MCHC RDW Plt Count MPV Absolute Neuts (auto) Neutrophils % Lymphocytes % Monocytes % Eosinophils % Basophils % Nucleated RBC % PT with INR INR PTT (Actin FS) VBG pH Cancelled POC VBG pCO2 Cancelled POC VBG pO2 Cancelled VBG HCO3 Cancelled VBG O2 Sat (Mark) Cancelled VBG Base Excess Cancelled Sodium Potassium Chloride Carbon Dioxide Anion Gap BUN Creatinine Est GFR (CKD-EPI)AfAm Est GFR (CKD-EPI)NonAf POC Glucometer Random Glucose Lactic Acid 2.0 Calcium Phosphorus Magnesium Total Bilirubin AST ALT Alkaline Phosphatase Creatine Kinase 553 H Creatine Kinase Index 1.1 CK-MB (CK-2) 6.3 H Troponin I < 0.02 B-Natriuretic Peptide 70.4 Total Protein Albumin Urine Color Urine Appearance Urine pH Ur Specific [place] Urine Protein Urine Glucose (UA) Urine Ketones Urine Blood Urine Nitrite Urine Bilirubin Urine Urobilinogen Ur Leukocyte Esterase Urine WBC (Auto) Urine RBC (Auto) Urine Casts (Auto) U Epithel Cells (Auto) Urine Bacteria (Auto) Stool Occult Blood Influenza A (Rapid) Influenza B (Rapid) 02/03/20 02/03/20 02/03/20 15:56 16:25 17:37 WBC RBC Hgb Hct MCV MCH MCHC RDW Plt Count MPV Absolute Neuts (auto) Neutrophils % Lymphocytes % Monocytes % Eosinophils % Basophils % Nucleated RBC % PT with INR 13.00 INR 1.10 H PTT (Actin FS) 29.7 VBG pH POC VBG pCO2 POC VBG pO2 VBG HCO3 VBG O2 Sat (Mark) VBG Base Excess Sodium Potassium Chloride Carbon Dioxide Anion Gap BUN Creatinine Est GFR (CKD-EPI)AfAm Est GFR (CKD-EPI)NonAf POC Glucometer Random Glucose Lactic Acid Calcium Phosphorus Magnesium Total Bilirubin AST ALT Alkaline Phosphatase Creatine Kinase Creatine Kinase Index CK-MB (CK-2) Troponin I B-Natriuretic Peptide Total Protein Albumin Urine Color Yellow Urine Appearance Clear Urine pH 5.5 Ur Specific [place] 1.025 Urine Protein 3+ H Urine Glucose (UA) Negative Urine Ketones Negative Urine Blood Negative Urine Nitrite Negative Urine Bilirubin Negative Urine Urobilinogen 0.2 Ur Leukocyte Esterase Negative Urine WBC (Auto) 1 Urine RBC (Auto) 2 Urine Casts (Auto) 0 U Epithel Cells (Auto) 1.3 Urine Bacteria (Auto) 0.7 Stool Occult Blood Influenza A (Rapid) Negative Influenza B (Rapid) Negative 02/03/20 02/04/20 02/04/20 20:30 01:20 04:37 WBC RBC Hgb Hct MCV MCH MCHC RDW Plt Count MPV Absolute Neuts (auto) Neutrophils % Lymphocytes % Monocytes % Eosinophils % Basophils % Nucleated RBC % PT with INR INR PTT (Actin FS) VBG pH 7.39 POC VBG pCO2 40.2 POC VBG pO2 160 H VBG HCO3 23.6 VBG O2 Sat (Mark) 99.1 H VBG Base Excess -0.8 Sodium Potassium Chloride Carbon Dioxide Anion Gap BUN Creatinine Est GFR (CKD-EPI)AfAm Est GFR (CKD-EPI)NonAf POC Glucometer 127 Random Glucose Lactic Acid 1.3 Calcium Phosphorus Magnesium Total Bilirubin AST ALT Alkaline Phosphatase Creatine Kinase Creatine Kinase Index CK-MB (CK-2) Troponin I B-Natriuretic Peptide Total Protein Albumin Urine Color Urine Appearance Urine pH Ur Specific [place] Urine Protein Urine Glucose (UA) Urine Ketones Urine Blood Urine Nitrite Urine Bilirubin Urine Urobilinogen Ur Leukocyte Esterase Urine WBC (Auto) Urine RBC (Auto) Urine Casts (Auto) U Epithel Cells (Auto) Urine Bacteria (Auto) Stool Occult Blood Influenza A (Rapid) Influenza B (Rapid) 02/04/20 02/04/20 02/04/20 07:30 07:30 12:22 WBC 7.0 RBC 4.56 Hgb 14.0 Hct 41.2 MCV 90.4 MCH 30.7 MCHC 34.0 RDW 14.7 Plt Count 280 MPV 8.3 Absolute Neuts (auto) Neutrophils % Lymphocytes % Monocytes % Eosinophils % Basophils % Nucleated RBC % PT with INR INR PTT (Actin FS) VBG pH POC VBG pCO2 POC VBG pO2 VBG HCO3 VBG O2 Sat (Mark) VBG Base Excess Sodium 139 Potassium 4.2 Chloride 107 Carbon Dioxide 25 Anion Gap 7 L BUN 26.6 H Creatinine 1.6 H Est GFR (CKD-EPI)AfAm 50.20 Est GFR (CKD-EPI)NonAf 43.31 POC Glucometer 142 Random Glucose 110 H Lactic Acid Calcium 8.4 L Phosphorus 3.3 Magnesium 2.1 Total Bilirubin 0.5 AST 36 ALT 49 Alkaline Phosphatase 81 Creatine Kinase Creatine Kinase Index CK-MB (CK-2) Troponin I B-Natriuretic Peptide Total Protein 7.0 Albumin 3.2 L Urine Color Urine Appearance Urine pH Ur Specific [place] Urine Protein Urine Glucose (UA) Urine Ketones Urine Blood Urine Nitrite Urine Bilirubin Urine Urobilinogen Ur Leukocyte Esterase Urine WBC (Auto) Urine RBC (Auto) Urine Casts (Auto) U Epithel Cells (Auto) Urine Bacteria (Auto) Stool Occult Blood Influenza A (Rapid) Influenza B (Rapid) Current Medications Generic Name Dose Route Start Last Admin Trade Name Freq PRN Reason Stop Dose Admin Acetaminophen 650 mg 02/03/20 21:58 02/04/20 13:30 Tylenol - PO 650 mg Q6H PRN Administration Fever Or Pain 1-5 Amlodipine Besylate 10 mg 02/04/20 10:00 02/04/20 09:38 Norvasc - PO 10 mg DAILY KRYS Administration Clopidogrel Bisulfate 75 mg 02/04/20 10:00 02/04/20 09:38 Plavix - PO 75 mg DAILY KRYS Administration Fluticasone Propionate 1 spray 02/03/20 22:00 02/04/20 11:43 Flonase - NS 1 spr BID KRYS Administration Heparin Sodium (Porcine) 5,000 unit 02/04/20 07:15 02/04/20 15:04 Heparin - SQ 5,000 unit TID KRYS Administration Levofloxacin 750 mg in 150 mls @ 100 mls/hr 02/04/20 03:30 02/04/20 04:08 Levaquin 750 Mg Premixed Ivpb - IVPB 02/08/20 11:29 100 mls/hr DAILY KRYS Administration Metronidazole 500 mg in 100 mls @ 100 mls/hr 02/04/20 03:30 02/04/20 11:34 Flagyl 500mg Premixed Ivpb - IVPB 100 mls/hr Q8H-IV KRYS Administration Lactated Ringer's 1,000 ml in 1,000 mls @ 75 mls/hr 02/04/20 09:31 02/04/20 09:51 Lactated Ringers Solution IV Not Given ASDIR KRYS Insulin Aspart 1 units 02/03/20 22:00 02/04/20 12:24 Novolog Vial SQ Not Given ACHS [facility] Protocol Labetalol HCl 100 mg 02/03/20 22:00 02/04/20 09:37 Normodyne - PO 100 mg BID KRYS Administration Latanoprost 1 drop 02/03/20 22:00 02/04/20 11:45 Xalatan 0.005% Eye Drops - OU 1 drop BID KRYS Administration Losartan Potassium 100 mg 02/04/20 10:00 02/04/20 09:46 Cozaar - PO 100 mg DAILY KRYS Administration Nortriptyline HCl 10 mg 02/04/20 10:00 02/04/20 11:43 Pamelor - PO Not Given DAILY KRYS Pantoprazole Sodium 40 mg 02/03/20 20:30 02/04/20 09:38 Protonix - PO 40 mg DAILY KRYS Administration Tamsulosin HCl 0.4 mg 02/04/20 08:30 02/04/20 09:37 Flomax - PO 0.4 mg DAILY@0830 KRYS Administration ASSESSMENT AND PLAN: 69 year old male with history of hypertension, DM 2, CAD s/p [place], HLD, Hx CVA 12/14, CKD 3 presents with 1 day history of profuse diarrhea and vomiting, found to have fever. 1. Acute Gastroenteritis, likely viral in etiology. Ongoing diarrhea, fever overnight. Cdiff negative Stool Cx pending. If persisting fever or development of abdominal discomfort, will request CT A/P with PO and IV contrast. On Empiric Abx Levofloxacin and Flagyl pending Stool Cx results. 2. Hx of CVA/CAD s/p [place] Continue Plavix, BB. does not appear to be on a statin - will clarify. 3. DM 2 - Maintain on Novolog sliding scale. 4. BPH - continue Tamsulosin. 5. HTN - continue BB, ARB, Norvasc. To clarify home meds - ? Coreg vs Labetalol. 6. CKD 3 - Creat at baseline. DVT Px - Heparin SQ
--- NOTE | 2020-02-04 16:25 | PN ---
Physical Exam: SUBJECTIVE: Patient seen and examined. Patient states that he feels better compared to yesterday. However, patient still with multiple episodes of diarrhea today. Denies abd pain, nausea, vomitting, chest pain, headache, chills. OBJECTIVE: Vital Signs Period Temp Pulse Resp BP Sys/Oneal Pulse Ox Last 24 Hr 98.6 F-99.4 F 104-112 18-18 153-162/66-87 96-98 GENERAL: The patient is awake, alert, and fully oriented, in no acute distress. HEAD: Normal with no signs of trauma. EYES: EOMI ENT: moist mucous membranes. NECK: Trachea midline, full range of motion, supple. LUNGS: Breath sounds equal, clear to auscultation bilaterally, no wheezes, no crackles HEART: Regular rate and rhythm, S1, S2 without murmur, rub or gallop ABDOMEN: Soft, nontender, nondistended, normoactive bowel sounds, no guarding, no rebound, no hepatosplenomegaly, no masses. EXTREMITIES: 2+ pulses, warm, well-perfused, no edema. NEUROLOGICAL: Normal speech, gait not observed. PSYCH: appropriate mood and affect SKIN: Warm, dry, normal turgor, no rashes or lesions noted Laboratory Results - last 24 hr 02/03/20 02/03/20 02/03/20 15:55 15:55 15:55 WBC 10.4 H RBC 5.27 Hgb 16.0 Hct 47.5 D MCV 90.1 MCH 30.4 MCHC 33.7 RDW 14.4 Plt Count 304 MPV 8.0 Absolute Neuts (auto) 9.3 H Neutrophils % 89.4 H D Lymphocytes % 2.2 L D Monocytes % 6.6 Eosinophils % 1.5 Basophils % 0.3 Nucleated RBC % 0 PT with INR INR PTT (Actin FS) VBG pH POC VBG pCO2 POC VBG pO2 VBG HCO3 VBG O2 Sat (Mark) VBG Base Excess Sodium 137 Potassium 4.7 Chloride 103 Carbon Dioxide 25 Anion Gap 8 BUN 25.6 H Creatinine 1.6 H Est GFR (CKD-EPI)AfAm 50.20 Est GFR (CKD-EPI)NonAf 43.31 POC Glucometer Random Glucose 164 H Lactic Acid Calcium 8.9 Phosphorus Magnesium Total Bilirubin 0.5 AST 34 ALT 53 Alkaline Phosphatase 104 Creatine Kinase 553 H Creatine Kinase Index 1.1 CK-MB (CK-2) 6.3 H Troponin I < 0.02 B-Natriuretic Peptide 70.4 Total Protein 7.9 Albumin 3.8 Urine Color Urine Appearance Urine pH Ur Specific [place] Urine Protein Urine Glucose (UA) Urine Ketones Urine Blood Urine Nitrite Urine Bilirubin Urine Urobilinogen Ur Leukocyte Esterase Urine WBC (Auto) Urine RBC (Auto) Urine Casts (Auto) U Epithel Cells (Auto) Urine Bacteria (Auto) Influenza A (Rapid) Influenza B (Rapid) 02/03/20 02/03/20 02/03/20 15:56 15:56 15:56 WBC RBC Hgb Hct MCV MCH MCHC RDW Plt Count MPV Absolute Neuts (auto) Neutrophils % Lymphocytes % Monocytes % Eosinophils % Basophils % Nucleated RBC % PT with INR INR PTT (Actin FS) VBG pH Cancelled POC VBG pCO2 Cancelled POC VBG pO2 Cancelled VBG HCO3 Cancelled VBG O2 Sat (Mark) Cancelled VBG Base Excess Cancelled Sodium Potassium Chloride Carbon Dioxide Anion Gap BUN Creatinine Est GFR (CKD-EPI)AfAm Est GFR (CKD-EPI)NonAf POC Glucometer Random Glucose Lactic Acid 2.0 Calcium Phosphorus Magnesium Total Bilirubin AST ALT Alkaline Phosphatase Creatine Kinase Creatine Kinase Index CK-MB (CK-2) Troponin I B-Natriuretic Peptide Total Protein Albumin Urine Color Urine Appearance Urine pH Ur Specific [place] Urine Protein Urine Glucose (UA) Urine Ketones Urine Blood Urine Nitrite Urine Bilirubin Urine Urobilinogen Ur Leukocyte Esterase Urine WBC (Auto) Urine RBC (Auto) Urine Casts (Auto) U Epithel Cells (Auto) Urine Bacteria (Auto) Influenza A (Rapid) Negative Influenza B (Rapid) Negative 02/03/20 02/03/20 02/03/20 16:25 17:37 20:30 WBC RBC Hgb Hct MCV MCH MCHC RDW Plt Count MPV Absolute Neuts (auto) Neutrophils % Lymphocytes % Monocytes % Eosinophils % Basophils % Nucleated RBC % PT with INR 13.00 INR 1.10 H PTT (Actin FS) 29.7 VBG pH POC VBG pCO2 POC VBG pO2 VBG HCO3 VBG O2 Sat (Mark) VBG Base Excess Sodium Potassium Chloride Carbon Dioxide Anion Gap BUN Creatinine Est GFR (CKD-EPI)AfAm Est GFR (CKD-EPI)NonAf POC Glucometer Random Glucose Lactic Acid 1.3 Calcium Phosphorus Magnesium Total Bilirubin AST ALT Alkaline Phosphatase Creatine Kinase Creatine Kinase Index CK-MB (CK-2) Troponin I B-Natriuretic Peptide Total Protein Albumin Urine Color Yellow Urine Appearance Clear Urine pH 5.5 Ur Specific [place] 1.025 Urine Protein 3+ H Urine Glucose (UA) Negative Urine Ketones Negative Urine Blood Negative Urine Nitrite Negative Urine Bilirubin Negative Urine Urobilinogen 0.2 Ur Leukocyte Esterase Negative Urine WBC (Auto) 1 Urine RBC (Auto) 2 Urine Casts (Auto) 0 U Epithel Cells (Auto) 1.3 Urine Bacteria (Auto) 0.7 Influenza A (Rapid) Influenza B (Rapid) 02/04/20 02/04/20 02/04/20 01:20 04:37 07:30 WBC 7.0 RBC 4.56 Hgb 14.0 Hct 41.2 MCV 90.4 MCH 30.7 MCHC 34.0 RDW 14.7 Plt Count 280 MPV 8.3 Absolute Neuts (auto) Neutrophils % Lymphocytes % Monocytes % Eosinophils % Basophils % Nucleated RBC % PT with INR INR PTT (Actin FS) VBG pH 7.39 POC VBG pCO2 40.2 POC VBG pO2 160 H VBG HCO3 23.6 VBG O2 Sat (Mark) 99.1 H VBG Base Excess -0.8 Sodium Potassium Chloride Carbon Dioxide Anion Gap BUN Creatinine Est GFR (CKD-EPI)AfAm Est GFR (CKD-EPI)NonAf POC Glucometer 127 Random Glucose Lactic Acid Calcium Phosphorus Magnesium Total Bilirubin AST ALT Alkaline Phosphatase Creatine Kinase Creatine Kinase Index CK-MB (CK-2) Troponin I B-Natriuretic Peptide Total Protein Albumin Urine Color Urine Appearance Urine pH Ur Specific [place] Urine Protein Urine Glucose (UA) Urine Ketones Urine Blood Urine Nitrite Urine Bilirubin Urine Urobilinogen Ur Leukocyte Esterase Urine WBC (Auto) Urine RBC (Auto) Urine Casts (Auto) U Epithel Cells (Auto) Urine Bacteria (Auto) Influenza A (Rapid) Influenza B (Rapid) 02/04/20 02/04/20 07:30 12:22 WBC RBC Hgb Hct MCV MCH MCHC RDW Plt Count MPV Absolute Neuts (auto) Neutrophils % Lymphocytes % Monocytes % Eosinophils % Basophils % Nucleated RBC % PT with INR INR PTT (Actin FS) VBG pH POC VBG pCO2 POC VBG pO2 VBG HCO3 VBG O2 Sat (Mark) VBG Base Excess Sodium 139 Potassium 4.2 Chloride 107 Carbon Dioxide 25 Anion Gap 7 L BUN 26.6 H Creatinine 1.6 H Est GFR (CKD-EPI)AfAm 50.20 Est GFR (CKD-EPI)NonAf 43.31 POC Glucometer 142 Random Glucose 110 H Lactic Acid Calcium 8.4 L Phosphorus 3.3 Magnesium 2.1 Total Bilirubin 0.5 AST 36 ALT 49 Alkaline Phosphatase 81 Creatine Kinase Creatine Kinase Index CK-MB (CK-2) Troponin I B-Natriuretic Peptide Total Protein 7.0 Albumin 3.2 L Urine Color Urine Appearance Urine pH Ur Specific [place] Urine Protein Urine Glucose (UA) Urine Ketones Urine Blood Urine Nitrite Urine Bilirubin Urine Urobilinogen Ur Leukocyte Esterase Urine WBC (Auto) Urine RBC (Auto) Urine Casts (Auto) U Epithel Cells (Auto) Urine Bacteria (Auto) Influenza A (Rapid) Influenza B (Rapid) Active Medications Generic Name Dose Route Start Last Admin Trade Name Freq PRN Reason Stop Dose Admin Acetaminophen 650 mg 02/03/20 21:58 02/04/20 13:30 Tylenol - PO 650 mg Q6H PRN Administration Fever Or Pain 1-5 Amlodipine Besylate 10 mg 02/04/20 10:00 02/04/20 09:38 Norvasc - PO 10 mg DAILY KRYS Administration Clopidogrel Bisulfate 75 mg 02/04/20 10:00 02/04/20 09:38 Plavix - PO 75 mg DAILY KRYS Administration Fluticasone Propionate 1 spray 02/03/20 22:00 02/04/20 11:43 Flonase - NS 1 spr BID KRYS Administration Heparin Sodium (Porcine) 5,000 unit 02/04/20 07:15 02/04/20 15:04 Heparin - SQ 5,000 unit TID KRYS Administration Levofloxacin 750 mg in 150 mls @ 100 mls/hr 02/04/20 03:30 02/04/20 04:08 Levaquin 750 Mg Premixed Ivpb - IVPB 02/08/20 11:29 100 mls/hr DAILY KRYS Administration Metronidazole 500 mg in 100 mls @ 100 mls/hr 02/04/20 03:30 02/04/20 11:34 Flagyl 500mg Premixed Ivpb - IVPB 100 mls/hr Q8H-IV KRYS Administration Lactated Ringer's 1,000 ml in 1,000 mls @ 75 mls/hr 02/04/20 09:31 02/04/20 09:51 Lactated Ringers Solution IV Not Given ASDIR [facility] Insulin Aspart 1 units 02/03/20 22:00 02/04/20 12:24 Novolog Vial SQ Not Given ACHS [facility] Protocol Labetalol HCl 100 mg 02/03/20 22:00 02/04/20 09:37 Normodyne - PO 100 mg BID KRYS Administration Latanoprost 1 drop 02/03/20 22:00 02/04/20 11:45 Xalatan 0.005% Eye Drops - OU 1 drop BID KRYS Administration Loperamide HCl 1 mg 02/04/20 06:48 Imodium Liquid - PO DAILY PRN DIARRHEA Losartan Potassium 100 mg 02/04/20 10:00 02/04/20 09:46 Cozaar - PO 100 mg DAILY KRYS Administration Nortriptyline HCl 10 mg 02/04/20 10:00 02/04/20 11:43 Pamelor - PO Not Given DAILY KRYS Pantoprazole Sodium 40 mg 02/03/20 20:30 02/04/20 09:38 Protonix - PO 40 mg DAILY KRYS Administration Tamsulosin HCl 0.4 mg 02/04/20 08:30 02/04/20 09:37 Flomax - PO 0.4 mg DAILY@0830 KRYS Administration ASSESSMENT/PLAN: 69 y/o/m with a PMHx of ischemic stroke (on ASA,Plavix, statin), CT (20yrs ago no PCI), DM, HTN, HLD who presents with intractable projective vomiting and diarrhea. #Intractable vomiting - likely gastroenteritis - Cotinue Llevaquin 750 daily, Flagyl 500mg Q8h due to recent fever and continued diarrhea - Cdiff antigen and toxin negative, further stool studies pending - zofran prn for nausea - IVF - Cr:1.6 (baseline 1.4-1.8) - will hold off on imaging as patient does not have tenderness to palpation on abd exam - flu negative - UA negative for infection 3+ protein - urine culture pending - blood culture pending - tylenol prn for fever - Stool occult test negative #CKD - baseline Cr 1.4-1.8 no acute kidney injury at this time - continue ARB given pt on this as o/p #DM - BGMs - ISS #HTN - Continue home ARB, Labetalol #HLD - Continue Simvastatin 10mg #Stroke Hx - continue asa 81, plavix 75, and statin #Gerd - c/w protonix 40 mg daily #Prophylaxis - Heparin #FEN - Clear liquid diet - Monitor and and replete lytes as needed - LR @ 75mls/hr #Disposition - Monitor for improvement of diarrhea Visit type - Emergency Visit Emergency Visit: Yes ED Registration Date: 02/03/20 Care time: The patient presented to the Emergency Department on the above date and was hospitalized for further evaluation of their emergent condition. - New Patient This patient is new to me today: Yes Date on this admission: 02/04/20 - Critical Care Critical Care patient: No ATTENDING PHYSICIAN STATEMENT I saw and evaluated the patient. I reviewed the resident's note and discussed the case with the resident. I agree with the resident's findings and plan as documented. SUBJECTIVE: OBJECTIVE: ASSESSMENT AND PLAN:
[2020-02-04 17:13] VITALS: BMI 34.2
[2020-02-05] MEDS: LACTATED RINGERS SOLUTION 1,000 ML/1,000 ML INFUS.BAG IV SCH ×2 (01:21→11:11)
[2020-02-05] MEDS: HEPARIN NA (PORCINE) 5,000 UNITS/ML 1ML VIAL SQ SCH ×2 (06:49→14:48)
[2020-02-05] MEDS: INSULIN (NOVOLOG) ASPART 100 UNITS/ML 10ML VIAL SQ SCH ×2 (06:54→12:51)
[2020-02-05 09:06] LABS: CALCIUM 8.2 mg/dL (8.5-10.1); CREATININE 1.5 mg/dL (0.55-1.3); POTASSIUM 4.1 mmol/L (3.5-5.1)
[2020-02-05] MEDS ORDERED: LACTOBACILLUS ACIDOPHILUS 1 TABLET PO SCH (10:00)
[2020-02-05] MEDS ORDERED: PT OWN MED DRAWER 7, Y5N ONE (11:01)
[2020-02-05] MEDS: TAMSULOSIN HCL 0.4 MG CAP PO SCH (11:09)
[2020-02-05] MEDS: LABETALOL HCL 100 MG TABLET (FP) PO SCH (11:09)
[2020-02-05] MEDS: amLODIPine BESYLATE 10 MG TABLET (FP) PO SCH (11:09)
[2020-02-05] MEDS: CLOPIDOGREL BISULFATE 75 MG TABLET (FP) PO SCH (11:09)
[2020-02-05] MEDS: PANTOPRAZOLE 40 MG TABLET PO SCH (11:09)
[2020-02-05] MEDS: LOSARTAN POTASSIUM 50 MG TABLET (FP) PO SCH (11:10)
[2020-02-05] MEDS: BANATROL PLUS POWDER PACKET PO SCH ×3 (11:10→13:33)
[2020-02-05] MEDS: NORTRIPTYLINE HCL 10 MG CAPSULE PO SCH (11:10)
[2020-02-05] MEDS: LATANOPROST 0.005% OPHTH SOLN 2.5ML BOTTLE OU SCH (11:11)
[2020-02-05] MEDS: FLUTICASONE PROP 0.05% 16 GM NASAL SPRAY NS SCH (11:11)
--- NOTE | 2020-02-05 11:22 | PN ---
Teaching Attending Note Name of Resident: Misael Maza ATTENDING PHYSICIAN STATEMENT I saw and evaluated the patient. I reviewed the resident's note and discussed the case with the resident. I agree with the resident's findings and plan as documented. SUBJECTIVE: Feeling better. Reports improvement in his diarrhea. No melena/hematochezia. No fever overnight. OBJECTIVE: fever resolved, Hemodynamically Stable. Last Vital Signs Temp Pulse Resp BP Pulse Ox 99.2 F 94 H 18 156/85 97 02/05/20 06:00 02/05/20 06:00 02/05/20 06:00 02/05/20 06:00 02/04/20 21:00 Heart - S1, S2, RRR Lungs - clear to auscultation Abdomen - Soft, non-tender. Bowel Sounds normal. Extremities - no edema, no calf tenderness. Laboratory Results - last 24 hr 02/04/20 02/04/20 02/04/20 12:22 17:24 21:18 Sodium Potassium Chloride Carbon Dioxide Anion Gap BUN Creatinine Est GFR (CKD-EPI)AfAm Est GFR (CKD-EPI)NonAf POC Glucometer 142 106 101 Random Glucose Calcium 02/05/20 02/05/20 06:52 07:40 Sodium 140 Potassium 4.1 Chloride 108 H Carbon Dioxide 25 Anion Gap 7 L BUN 19.0 H Creatinine 1.5 H Est GFR (CKD-EPI)AfAm 54.27 Est GFR (CKD-EPI)NonAf 46.83 POC Glucometer 110 Random Glucose 102 Calcium 8.2 L Current Medications Generic Name Dose Route Start Last Admin Trade Name Freq PRN Reason Stop Dose Admin Acetaminophen 650 mg 02/03/20 21:58 02/04/20 21:21 Tylenol - PO 650 mg Q6H PRN Administration Fever Or Pain 1-5 Amlodipine Besylate 10 mg 02/04/20 10:00 02/05/20 11:09 Norvasc - PO 10 mg DAILY KRYS Administration Clopidogrel Bisulfate 75 mg 02/04/20 10:00 02/05/20 11:09 Plavix - PO 75 mg DAILY KRYS Administration Fluticasone Propionate 1 spray 02/03/20 22:00 02/05/20 11:11 Flonase - NS 1 spr BID KRYS Administration Heparin Sodium (Porcine) 5,000 unit 02/04/20 07:15 02/05/20 06:49 Heparin - SQ 5,000 unit TID KRYS Administration Levofloxacin 750 mg in 150 mls @ 100 mls/hr 02/04/20 03:30 02/05/20 11:08 Levaquin 750 Mg Premixed Ivpb - IVPB 02/08/20 11:29 100 mls/hr DAILY KRYS Administration Metronidazole 500 mg in 100 mls @ 100 mls/hr 02/04/20 03:30 02/05/20 11:08 Flagyl 500mg Premixed Ivpb - IVPB 100 mls/hr Q8H-IV KRYS Administration Lactated Ringer's 1,000 ml in 1,000 mls @ 75 mls/hr 02/04/20 09:31 02/05/20 11:11 Lactated Ringers Solution IV Not Given ASDIR [facility] Insulin Aspart 1 units 02/03/20 22:00 02/05/20 06:54 Novolog Vial SQ Not Given ACHS [facility] Protocol Labetalol HCl 100 mg 02/03/20 22:00 02/05/20 11:09 Normodyne - PO 100 mg BID KRYS Administration Lactobacillus Acidophilus 1 tab 02/05/20 10:00 02/05/20 11:11 Bacid - PO 1 tab DAILY [facility] Administration Latanoprost 1 drop 02/03/20 22:00 02/05/20 11:11 Xalatan 0.005% Eye Drops - OU 1 drop BID KRYS Administration Loperamide HCl 1 mg 02/04/20 06:48 Imodium Liquid - PO DAILY PRN DIARRHEA Losartan Potassium 100 mg 02/04/20 10:00 02/05/20 11:10 Cozaar - PO 100 mg DAILY KRYS Administration Nortriptyline HCl 10 mg 02/04/20 10:00 02/05/20 11:10 Pamelor - PO Not Given DAILY KRYS Pantoprazole Sodium 40 mg 02/03/20 20:30 02/05/20 11:09 Protonix - PO 40 mg DAILY KRYS Administration Tamsulosin HCl 0.4 mg 02/04/20 08:30 02/05/20 11:09 Flomax - PO 0.4 mg DAILY@0830 KRYS Administration Home Medications Medication Instructions Recorded Pantoprazole Sodium [Protonix] 40 mg PO DAILY 03/27/15 metFORMIN HCL [Metformin HCl] 500 mg PO BID 05/02/19 Clopidogrel Bisulfate [Plavix -] 75 mg PO DAILY #120 tablet 12/18/19 Amlodipine Besylate [Norvasc -] 10 mg PO DAILY #90 tablet 12/21/19 Losartan Potassium 100 mg PO DAILY #90 tablet 12/21/19 Labetalol HCl [Normodyne -] 100 mg PO BID 01/31/20 Latanoprost 1 drop OU BID 01/31/20 Nortriptyline HCl [Pamelor -] 10 mg PO DAILY 01/31/20 Tamsulosin HCl [Flomax] 0.4 mg PO DAILY 01/31/20 Simvastatin [Zocor] 10 mg PO HS 02/04/20 ASSESSMENT AND PLAN: 69 year old male with history of hypertension, DM 2, CAD s/p [place], HLD, Hx CVA 12/14, CKD 3 presents with 1 day history of profuse diarrhea and vomiting, found to have fever. 1. Acute Gastroenteritis, likely viral in etiology. diarrhea resolved. Cdiff negative Stool Cx negative so far. Medically stable for discharge off Abx therapy. If any Stool Cx return positive, will contact patient and prescribe Abx if appropriate. 2. Hx of CVA/CAD s/p [place] Continue Plavix, BB, Statin. 3. DM 2 - Resume Metformin on discharge. Given Hx of CKD and baseline elevation in creat, patient advised to see his PCP re: alternative DM 2 medication regimen. 4. BPH - continue Tamsulosin. 5. HTN - continue BB, ARB, Norvasc. 6. CKD 3 - Creat at baseline. Diarrhea resolved. Afebrile, hemodynamically stable. Medically optimized for discharge.
[2020-02-05 11:28] VITALS: TEMP 98.6
--- NOTE | 2020-02-05 13:43 | DS ---
Physical Exam: SUBJECTIVE: Patient seen and examined. States that he is feeling better. No longer has diarrhea. He had one BM today which he states was loose but not like diarrhea. Denies abd pain, CP, SOB, fever, chills or other concerns. OBJECTIVE: Vital Signs Period Temp Pulse Resp BP Sys/Oneal Pulse Ox Last 24 Hr 98.6 F-99.4 F 94-104 18-18 148-184/80-103 97 PHYSICAL EXAM GENERAL: The patient is awake, alert, and fully oriented, in no acute distress. HEAD: Normal with no signs of trauma. EYES: EOMI ENT: moist mucous membranes. NECK: Trachea midline, full range of motion, supple. LUNGS: Breath sounds equal, clear to auscultation bilaterally, no wheezes, no crackles HEART: Regular rate and rhythm, S1, S2 without murmur, rub or gallop ABDOMEN: Soft, nontender, nondistended, normoactive bowel sounds, no guarding, no rebound, no hepatosplenomegaly, no masses. EXTREMITIES: 2+ pulses, warm, well-perfused, no edema. NEUROLOGICAL: Normal speech, gait not observed. PSYCH: appropriate mood and affect SKIN: Warm, dry, normal turgor, no rashes or lesions noted LABS Laboratory Results - last 24 hr 02/04/20 02/04/20 02/05/20 17:24 21:18 06:52 Sodium Potassium Chloride Carbon Dioxide Anion Gap BUN Creatinine Est GFR (CKD-EPI)AfAm Est GFR (CKD-EPI)NonAf POC Glucometer 106 101 110 Random Glucose Calcium 02/05/20 02/05/20 07:40 12:19 Sodium 140 Potassium 4.1 Chloride 108 H Carbon Dioxide 25 Anion Gap 7 L BUN 19.0 H Creatinine 1.5 H Est GFR (CKD-EPI)AfAm 54.27 Est GFR (CKD-EPI)NonAf 46.83 POC Glucometer 109 Random Glucose 102 Calcium 8.2 L HOSPITAL COURSE: Date of Admission:02/03/20 Date of Discharge: 02/05/20 69 y/o/m with a PMHx of ischemic stroke (on ASA,Plavix, statin), DC (20yrs ago no PCI), DM, HTN, HLD who presented with intractable projective vomiting and diarrhea. CXR did not show any acute pathology. Patient had a fever on admission so antibiotics were started empirically. He was on Flagyl and Levaquin. Stool studies were completed and were negative for C diff. Cultures negative to date, will follow up with pending cultures and inform patient if any return positive. Blood cultures and urine cultures were negative. Flu negative. Patient with history of CKD, recommended to follow up with his PCP and determine if Metformin is the best medication for his diabetes. Patient was able to tolerate diet and did not have any abd pain. Patient medically stable for discharge. Minutes to complete discharge: 36 Discharge Summary Problems reviewed: Yes Reason For Visit: DIARRHEA,TACHYCARDIA,NAUSEA AND VOMITING Current Active Problems Diarrhea (Acute) Nausea & vomiting (Acute) Tachycardia (Acute) Condition: Stable - Instructions Diet, Activity, Other Instructions: You presented to the hospital due to vomiting and diarrhea. You were started on antibiotics as your presented with a fever. You had some diarrhea while admitted which did improve. You were able to tolerate a diet and are ok to be discharged home. You are not being prescribed any antibiotics at this time. No changes were made to your medications. Follow up with the following physicians: 1. Please follow up with your primary care provider within one week of discharge for further management of your medical conditions. Given your history of chronic kidney disease please speak with your primary care provider to discuss an alternative diabetes medication other than Metformin. 2. A referral for a analysis director has been included for you if you continue to have diarrhea, constipation, or other abdominal discomfort. Activity and Diet 1. Please monitor your diet as you need to intake foods with less salt, fat, and sugars. 2. Recommended to eat a BRAT (Banana, Rice, apple, toast) diet to help ease back into a normal diet. Continue all your other medications as prescribed Please return to the ER if you have any signs or symptoms of chest pain, shortness of breath, uncontrollable fever, chills, nausea, vomiting, numbness, tingling, or weakness in any part of your body, changes in vision, or slurred speech. Please return to the ER if symptoms persist, worsen, or new symptoms arise. Referrals: ON STAFF,NOT [Primary Care Provider] - Melani Lockhart MD [Staff Physician] - - Home Medications Comprehensive Discharge Medication List: Ambulatory Orders Pantoprazole Sodium [Protonix] 40 mg PO DAILY 03/27/15 metFORMIN HCL [Metformin HCl] 500 mg PO BID 05/02/19 Clopidogrel Bisulfate [Plavix -] 75 mg PO DAILY #120 tablet 12/18/19 Amlodipine Besylate [Norvasc -] 10 mg PO DAILY #90 tablet 12/21/19 Losartan Potassium 100 mg PO DAILY #90 tablet 12/21/19 Labetalol HCl [Normodyne -] 100 mg PO BID 01/31/20 Latanoprost 1 drop OU BID 01/31/20 Nortriptyline HCl [Pamelor -] 10 mg PO DAILY 01/31/20 Tamsulosin HCl [Flomax] 0.4 mg PO DAILY 01/31/20 Simvastatin [Zocor -] 10 mg PO HS 02/04/20 This patient is new to me today: No Emergency Visit: Yes ED Registration Date: 02/03/20 Care time: The patient presented to the Emergency Department on the above date and was hospitalized for further evaluation of their emergent condition. Critical Care patient: No - Discharge Referral Referred to [facility] Med P.C.: No ATTENDING PHYSICIAN STATEMENT I saw and evaluated the patient. I reviewed the resident's note and discussed the case with the resident. I agree with the resident's findings and plan as documented. SUBJECTIVE: OBJECTIVE: ASSESSMENT AND PLAN:
[2020-02-05 14:48] VITALS: BP 152/86; PULSE 92
== END 2020-02-05 14:46 | disposition home or self-care (01) ==
LOC: JER 14:37 → JERBED 20:55 → INTOOBSV 20:55 → J5S 02-04 04:15
PROVIDERS: ADMIT Internal Medicine
PROC: 3E03329 Introduction of Other Anti-infective into Peripheral Vein, Percutaneous Approach (ICD-10-PCS; principal; 2020-02-03)
PROC: 3E033NZ Introduction of Analgesics, Hypnotics, Sedatives into Peripheral Vein, Percutaneous Approach (ICD-10-PCS; 2020-02-03)
PROC: 3E0337Z Introduction of Electrolytic and Water Balance Substance into Peripheral Vein, Percutaneous Approach (ICD-10-PCS; 2020-02-03)
PROC: 3E023GC Introduction of Other Therapeutic Substance into Muscle, Percutaneous Approach (ICD-10-PCS; 2020-02-03)
PROC: 3E013GC Introduction of Other Therapeutic Substance into Subcutaneous Tissue, Percutaneous Approach (ICD-10-PCS; 2020-02-03)
DX: R00.0 Tachycardia, unspecified (principal); K52.89 Other specified noninfective gastroenteritis and colitis; R11.2 Nausea with vomiting, unspecified; R19.7 Diarrhea, unspecified; E11.22 Type 2 diabetes mellitus with diabetic chronic kidney disease; I12.9 Hypertensive chronic kidney disease with stage 1 through stage 4 chronic kidney disease, or unspecified chronic kidney disease; N18.3 Chronic kidney disease, stage 3 (moderate); Z87.891 Personal history of nicotine dependence; Z79.84 Long term (current) use of oral hypoglycemic drugs; E78.5 Hyperlipidemia, unspecified; K21.9 Gastro-esophageal reflux disease without esophagitis; H40.9 Unspecified glaucoma; I25.10 Atherosclerotic heart disease of native coronary artery without angina pectoris; I25.2 Old myocardial infarction; I69.393 Ataxia following cerebral infarction; I69.311 Memory deficit following cerebral infarction; I69.398 Other sequelae of cerebral infarction; N40.0 Benign prostatic hyperplasia without lower urinary tract symptoms
CPT/HCPCS: 36415; 70450-TC; 71045-TC-FY; 80048; 80053; 80061; 81003; 82272; 82550; 82553; 82803; 82962; 83605; 83721; 83735; 83880; 83993; 84100; 84484; 85025; 85027; 85610; 85730; 86850; 86900; 86901; 87040; 87045; 87046; 87086; 87177; 87205; 87209; 87324; 87449; 87804; 93005; 93010; 96372; 96374; 96375; 99285-25; G0378; J0131; J1644; Q0162

== ENCOUNTER 2020-06-02 22:30 | Emergency (ER) | payer OTHER ==
[2020-06-02] MEDS ORDERED: NAPROXEN 500 MG TABLET PO ONE (22:36)
[2020-06-02 22:37] VITALS: BP 171/79; PULSE 78; TEMP 97; BMI 33.7
[2020-06-02] MEDS ORDERED: NAPROXEN 500 MG TABLET ONE (22:38)
--- NOTE | 2020-06-02 22:38 | PDOC ---
History of Present Illness - General Chief Complaint: Pain, Acute Stated Complaint: SIDE PAIN Time Seen by Provider: 06/02/20 22:32 History Source: Patient, Spouse, Old Records Exam Limitations: No Limitations - History of Present Illness Initial Comments: 06/02/20 22:33 CHIEF COMPLAINT: Lower back pain HISTORY OF PRESENT ILLNESS: 70-year-old male past medical history of hyper tension, CVA and chronic back pain presents emergency department for evaluation of right-sided lower back pain starting this morning. Patient was seen and evaluated in urgent care center and was told to take Tylenol. Patient and spouse believe he did not receive adequate care at the urgent care center as Tylenol has not helped to relieve his pain. Patient is here for reevaluation of his lower back pain. Reports the pain is worse on the right side of his lower back and is nonradiating. He denies any neurosensory deficits, incontinence of bowel or bladder, urinary retention, saddle anesthesia, foot drop, history of IV drug use or cancer. REVIEW OF SYSTEMS: GENERAL: Afebrile, denies any weakness RESPIRATORY: No cough, wheezing, or hemoptysis. CARDIAC: No chest pain or shortness of breath MUSCULOSKELETAL: Pain to generalized lower back. No point tenderness. Pain worse on right than left. SKIN : No erythema, no bruising, no deformity. GI/: Denies any abdominal pain, no urinary difficulty, incontinence or urinary retention. RECTAL: Denies any difficulty this A.m. NEUROLOGICAL: Denies any numbness or tingling. No neurosensory deficits. PHYSICAL EXAM: GENERAL: The patient is awake, alert, and fully oriented, in no acute distress. RESPIRATORY: Lungs clear bilaterally, no rhonchi wheezes or crackles CARDIAC: S1-S2 audible, no murmur rub or gallop MUSCULOSKELETAL: Pain to generalized lower back, nonradiating, no tingling or sensory deficit. Less than 2 second cap refill, +2 pedal pulses. GI/: Abdomen soft, nontender, nondistended. No rebound tenderness. No masses palpable. MUSCULOSKELETAL: No spinal point tenderness. Normal reflexive and no deficits to sensation or strength. Palpable muscle spasms present in the right lumbar paraspinous region. RECTAL: Deferred patient with no neurological findings SKIN: Warm, Dry, normal turgor, no erythema, no edema no bruising. Past History - Medical History Allergies/Adverse Reactions: Allergies Allergy/AdvReac Type Severity Reaction Status Date / Time No Known Allergies Allergy Verified 06/02/20 22:35 Home Medications: Ambulatory Orders Pantoprazole Sodium [Protonix] 40 mg PO DAILY 03/27/15 metFORMIN HCL [Metformin HCl] 500 mg PO BID 05/02/19 Clopidogrel Bisulfate [Plavix -] 75 mg PO DAILY #120 tablet 12/18/19 Amlodipine Besylate [Norvasc -] 10 mg PO DAILY #90 tablet 12/21/19 Losartan Potassium 100 mg PO DAILY #90 tablet 12/21/19 Labetalol HCl [Normodyne -] 100 mg PO BID 01/31/20 Latanoprost 1 drop OU BID 01/31/20 Nortriptyline HCl [Pamelor -] 10 mg PO DAILY 01/31/20 Tamsulosin HCl [Flomax] 0.4 mg PO DAILY 01/31/20 Simvastatin [Zocor -] 10 mg PO HS 02/04/20 Methocarbamol [Robaxin -] 1,000 mg PO TID PRN #42 tablet 06/02/20 Anemia: No Cardiac Disorders: Yes ([place]) CVA: Yes (12/2019) COPD: No CHF: No Diabetes: Yes GI Disorders: Yes (GERD) HTN: Yes Hypercholesterolemia: Yes - Surgical History Cardiac Surgery: No Neurologic Surgery: No - Immunization History Immunization Up to Date: Yes - Psycho-Social/Smoking History Smoking History: Never smoked Have you smoked in the past 12 months: No If you are a former smoker, when did you quit?: in the 1970s Medical Decision Making - Medical Decision Making 06/02/20 22:35 A/P: 7-year-old male with palpable muscle spasms in the right lumbar paraspinous region Patient is requesting injection at this time to help treat his pain. Is explained to the patient he is on ongoing anticoagulant medication and IM injections are contraindicated with anticoagulation. Naprosyn 500 mg orally now Discharge home with prescription for Robaxin I discussed the physical exam findings, ancillary test results and final diagnoses with the patient. I answered all of the patient's questions. The patient was satisfied with the care received and felt comfortable with the discharge plan and treatment plan. The patient will call their primary care physician within 24 hours to arrange follow-up and will return to the Emergency Department with any new, persistent or worsening symptoms. Portions of this note have been documented using voice recognition software. As a result, errors may occur in the overnight babysitter process. Effort has been made to correct all grammatical and overnight babysitter error, but some may have been missed which may produce sporadic inaccurate overnight babysitter or nonsensical phrases. Discharge - Discharge Information Problems reviewed: Yes Clinical Impression/Diagnosis: Lower back pain Qualifiers: Chronicity: acute Back pain laterality: right Sciatica presence: without sciatica Qualified Code(s): M54.5 - Low back pain Condition: Stable Disposition: HOME - Admission No - Additional Discharge Information Prescriptions: Methocarbamol [Robaxin -] 1,000 mg PO TID PRN #42 tablet PRN Reason: Back Pain - Follow up/Referral - Patient Discharge Instructions Additional Instructions: Take Naprosyn as needed for pain. Follow manufacturers instructions for appropriate dosage. Try not to walk or bear weight as much as possible for the next 3 days. Take Robaxin 1000 mg 3 times a day as needed for back pain. Warm moist heat applied to your back may help alleviate pain. Return to emergency department for discoloration of the foot, numbness or tingling to the foot, worsening pain, or any other concerns. Thank you very much for choosing us to provide your emergent healthcare needs. - Post Discharge Activity
== END 2020-06-02 22:41 | disposition home or self-care (01) ==
LOC: JER 22:30
DX: M54.5 Low back pain (principal)
CPT/HCPCS: 99283-25

== ENCOUNTER 2020-06-03 02:08 | Emergency (ER) | payer OTHER ==
[2020-06-03 02:36] VITALS: BMI 33.5
[2020-06-03] MEDS ORDERED: DEXAMETHASONE SOD PHOSPHATE 10 MG/1 ML VIAL IVPUSH ONE (02:52)
[2020-06-03] MEDS ORDERED: FAMOTIDINE 20 MG/50 ML IVPB 20 MG/50 ML MG IVPB ONE ×2 (02:52→03:03)
--- NOTE | 2020-06-03 02:53 | PDOC ---
History of Present Illness - General Chief Complaint: Allergic Reaction Stated Complaint: ALLERGIC REACTION Time Seen by Provider: 06/03/20 02:36 - History of Present Illness Initial Comments: 06/03/20 02:55 70 year man with a history of CAD on Plavix, hypertension, hyperlipidemia and diabetes who presents with itching and hives on the chest and back after taking robaxcin for low back pain. The patient denies any respiratory complaints. He has no other complaints. ROS GENERAL/CONSTITUTIONAL: No fever or chills. No weakness. HEAD, EYES, EARS, NOSE AND THROAT: No change in vision. No ear pain or discharge. No sore throat. CARDIOVASCULAR: No chest pain or shortness of breath RESPIRATORY: No cough, wheezing, or hemoptysis. GASTROINTESTINAL: No nausea, vomiting, diarrhea or constipation. GENITOURINARY: No dysuria, frequency, or change in urination. MUSCULOSKELETAL: No joint or muscle swelling or pain. No neck or back pain. SKIN: No rash NEUROLOGIC: No headache, vertigo, loss of consciousness, or change in strength/sensation. ENDOCRINE: No increased thirst. No abnormal weight change HEMATOLOGIC/LYMPHATIC: No anemia, easy bleeding, or history of blood clots. ALLERGIC/IMMUNOLOGIC: No hives or skin allergy. PE GENERAL: Awake, alert, and fully oriented, in no acute distress HEAD: No signs of trauma, normocephalic, atraumatic EYES: PEEOMI, sclera anicteric, conjunctiva clear ENT: No uvular edema, oropharynx clear without exudates. Moist mucosa NECK: Normal ROM, supple LUNGS: No distress, speaks full sentences, clear to auscultation bilaterally HEART: Regular rate and rhythm, normal S1 and S2, no murmurs, rubs or gallops, peripheral pulses normal and equal bilaterally. ABDOMEN: Soft, nontender. No guarding, no rebound. No masses BACK: + hives on the back EXTREMITIES : Normal inspection, Normal range of motion, no edema. No clubbing or cyanosis. NEUROLOGICAL: Cranial nerves II through XII grossly intact. Normal speech, normal gait, no focal sensorimotor deficits SKIN: Warm, Dry, normal turgor, no rashes or lesions noted Assessment and Plan 70 year man with a history of CAD on Plavix, hypertension, hyperlipidemia and diabetes who presents with itching and hives on the chest and back after taking robaxcin for low back pain. Allergic reaction dose decadron, benadryl, pepcid observe Will need steroids Past History - Medical History Allergies/Adverse Reactions: Allergies Allergy/AdvReac Type Severity Reaction Status Date / Time No Known Allergies Allergy Verified 06/03/20 23:57 Home Medications: Ambulatory Orders Pantoprazole Sodium [Protonix] 40 mg PO DAILY 03/27/15 metFORMIN HCL [Metformin HCl] 500 mg PO BID 05/02/19 Clopidogrel Bisulfate [Plavix -] 75 mg PO DAILY #120 tablet 12/18/19 Amlodipine Besylate [Norvasc -] 10 mg PO DAILY #90 tablet 12/21/19 Losartan Potassium 100 mg PO DAILY #90 tablet 12/21/19 Labetalol HCl [Normodyne -] 100 mg PO BID 01/31/20 Latanoprost 1 drop OU BID 01/31/20 Nortriptyline HCl [Pamelor -] 10 mg PO DAILY 01/31/20 Tamsulosin HCl [Flomax] 0.4 mg PO DAILY 01/31/20 Simvastatin [Zocor -] 10 mg PO HS 02/04/20 Methocarbamol [Robaxin -] 1,000 mg PO TID PRN #42 tablet 06/02/20 Lidocaine 5% Patch [Lidoderm Patch -] 1 patch TP DAILY #7 patch 06/03/20 Methylprednisolone [Medrol Dose Greg] 4 mg PO ASDIR #21 tablet 06/03/20 Miscellaneous Medical Supply [Glucometer Device] 1 each SQ ASDIR #1 kit 06/03/20 Miscellaneous Medical Supply [Glucometer Test Strips #50] 1 each SQ ASDIR #1 box 06/03/20 Baclofen 5 mg PO TID PRN 5 Days #15 tablet 06/04/20 Anemia: No Cardiac Disorders: Yes ([place]) CVA: Yes (12/2019) COPD: No CHF: No Diabetes: Yes GI Disorders: Yes (GERD) HTN: Yes Hypercholesterolemia: Yes - Surgical History Cardiac Surgery: No Neurologic Surgery: No - Immunization History Immunization Up to Date: Yes - Psycho-Social/Smoking History Smoking History: Never smoked Have you smoked in the past 12 months: No If you are a former smoker, when did you quit?: in the 1970s - Substance Abuse Hx (Audit-C & DAST Scrn) How often the patient has a drink containing alcohol: Never Score: In Men: 4 or > Positive; In Women: 3 or > Positive: 0 Screen Result (Pos requires Nsg. Audit-10AR): Negative In the last yr the pt used illegal drug/Rx for NonMed reason: No Score: Yes response is considered Positive: 0 Screen Result (Positive result requires Nsg. DAST-10): Negative *Physical Exam - Vital Signs Last Vital Signs Temp Pulse Resp BP Pulse Ox 98.4 F 76 18 158/75 100 06/03/20 02:17 06/03/20 02:17 06/03/20 02:17 06/03/20 02:17 06/03/20 02:17 ED Treatment Course - LABORATORY CBC & Chemistry Diagram: 06/03/20 02:55 06/03/20 02:55 Discharge - Discharge Information Problems reviewed: Yes Clinical Impression/Diagnosis: Allergic reaction Condition: Stable Disposition: HOME - Additional Discharge Information Prescriptions: Miscellaneous Medical Supply [Glucometer Device] 1 each SQ ASDIR #1 kit Miscellaneous Medical Supply [Glucometer Test Strips #50] 1 each SQ ASDIR #1 box Lidocaine 5% Patch [Lidoderm Patch -] 1 patch TP DAILY #7 patch Methylprednisolone [Medrol Dose Greg] 4 mg PO ASDIR #21 tablet - Follow up/Referral Referrals: Tristan Fraire [Primary Care Provider] - Amelia Chun [Non Staff, Medical] - Nicole Finnegan [Non Staff, Medical] - Gennaro Moeller MD [Non Staff, Medical] - - Patient Discharge Instructions Patient Printed Discharge Instructions: DI for Adverse Drug Reaction -- Allergic Additional Instructions: You were seen in the ER for an allergic reaction of Robaxin (Methocarbamol) a muscle relaxer You were given steroids and antihistamine medications You had improvement of symptoms and were observed for several hours. Please refrain from using any more Robaxin You have a glucometer and test strips sent to your pharmacy which you can fill if you are unable to locate your home device. You also have steroids sent to your pharmacy, however you should not take these steroids unless you are able to check your blood sugar, as these medications will elevate your sugar and it needs to be monitored. Please do not take the steroids if you cannot check your sugar periodically. You have a referral to an scale balancer and can follow up within 1 week. You also should see your Family Doctor within 1 week. Return to the ER immediately if you experience worsening itching, hives, scratching/swelling of the throat, difficulty breathing or any other concerning symptoms. - Post Discharge Activity
--- NOTE | 2020-06-03 02:59 | PDOC ---
Attending Attestation - Resident Resident Name: CrFrancis pereiraie - ED Attending Attestation I have performed the following: I have examined & evaluated the patient, The case was reviewed & discussed with the resident, I agree w/resident's findings & plan - HPI HPI: 06/03/20 02:54 see resident hpi - Physicial Exam PE: 06/03/20 02:54 see resident exam - Medical Decision Making 06/03/20 02:55 70-year-old male with itching and rash to the torso after starting Robaxin Unfortunately patient will require steroids despite being diabetic, type II requiring metformin only Benadryl, Pepcid administered as well We will plan for reevaluation and possible observation for blood sugar checks as patient does not have a glucometer at home Airway is intact, is at the bedside Discharge - Discharge Information Problems reviewed: Yes Clinical Impression/Diagnosis: Allergic reaction - Follow up/Referral Referrals: Tristan Fraire [Primary Care Provider] - - Patient Discharge Instructions - Post Discharge Activity
[2020-06-03] MEDS ORDERED: DEXAMETHASONE SOD PHOSPHATE 10 MG/1 ML VIAL ONE (03:03)
[2020-06-03 03:14] LABS: BASO % 1.3 % (0-2.0); EOS % 4.2 % (0-4.5); HEMATOCRIT 43.2 % (35.4-49); HEMOGLOBIN 14.5 GM/dL (11.7-16.9); LYMPH % 27.4 % (8-40); MCH 30.3 pg (25.7-33.7); MCHC 33.5 g/dl (32.0-35.9); MEAN CELL VOLUME 90.3 fl (80-96); MEAN PLT VOLUME 8.2 fl (7.5-11.1); MONO % 12.2 % (3.8-10.2); NEUT % 54.9 % (42.8-82.8); PLATELET COUNT 265 K/MM3 (134-434); RBC 4.78 M/mm3 (4.00-5.60); RDW 13.5 % (11.9-15.9); WHITE BLOOD COUNT 6.6 K/mm3 (4.0-10.0)
[2020-06-03 03:50] LABS: ALBUMIN 3.8 g/dl (3.4-5.0); BILIRUBIN,TOTAL 0.4 mg/dL (0.2-1); BLOOD UREA NITROGEN 22.1 mg/dL (7-18); CALCIUM 9.4 mg/dL (8.5-10.1); CREATININE 1.9 mg/dL (0.55-1.3); POTASSIUM 3.6 mmol/L (3.5-5.1); TOT PROT 6.9 g/dl (6.4-8.2)
[2020-06-03 05:56] VITALS: BP 161/85; PULSE 61; TEMP 98
== END 2020-06-03 06:20 | disposition home or self-care (01) ==
LOC: JER 02:08
PROC: 3E033GC Introduction of Other Therapeutic Substance into Peripheral Vein, Percutaneous Approach (ICD-10-PCS; principal; 2020-06-03)
DX: T78.40XA Allergy, unspecified, initial encounter (principal)
CPT/HCPCS: 36415; 80053; 82962; 85025; 99284-25; J1100

== ENCOUNTER 2020-06-03 23:51 | Emergency (ER) | payer OTHER ==
[2020-06-04 00:05] VITALS: BMI 33.7
--- NOTE | 2020-06-04 00:18 | PDOC ---
History of Present Illness - General Chief Complaint: Nausea Stated Complaint: PERSISTENT HICCUPS Time Seen by Provider: 06/04/20 00:17 History Source: Patient, Spouse Exam Limitations: No Limitations - History of Present Illness Initial Comments: 70 year old male with history of DM, HTN, CVA s/p recovery, and GERD presents to the ED with hiccups. He states that it had multiple episodes of hiccups lasting about 30 minutes at a time every 2 hours or so. He took some Baclofen earlier and the hiccups subsided. He denies chest pain, SOB, fevers, syncope, neurological symptoms, reflux sensation, nausea, or vomiting. Past History - Medical History Allergies/Adverse Reactions: Allergies Allergy/AdvReac Type Severity Reaction Status Date / Time No Known Allergies Allergy Verified 06/03/20 23:57 Home Medications: Ambulatory Orders Pantoprazole Sodium [Protonix] 40 mg PO DAILY 03/27/15 metFORMIN HCL [Metformin HCl] 500 mg PO BID 05/02/19 Clopidogrel Bisulfate [Plavix -] 75 mg PO DAILY #120 tablet 12/18/19 Amlodipine Besylate [Norvasc -] 10 mg PO DAILY #90 tablet 12/21/19 Losartan Potassium 100 mg PO DAILY #90 tablet 12/21/19 Labetalol HCl [Normodyne -] 100 mg PO BID 01/31/20 Latanoprost 1 drop OU BID 01/31/20 Nortriptyline HCl [Pamelor -] 10 mg PO DAILY 01/31/20 Tamsulosin HCl [Flomax] 0.4 mg PO DAILY 01/31/20 Simvastatin [Zocor -] 10 mg PO HS 02/04/20 Methocarbamol [Robaxin -] 1,000 mg PO TID PRN #42 tablet 06/02/20 Lidocaine 5% Patch [Lidoderm Patch -] 1 patch TP DAILY #7 patch 06/03/20 Methylprednisolone [Medrol Dose Greg] 4 mg PO ASDIR #21 tablet 06/03/20 Miscellaneous Medical Supply [Glucometer Device] 1 each SQ ASDIR #1 kit 06/03/20 Miscellaneous Medical Supply [Glucometer Test Strips #50] 1 each SQ ASDIR #1 box 06/03/20 Baclofen 5 mg PO TID PRN 5 Days #15 tablet 06/04/20 Anemia: No Cardiac Disorders: Yes ([place]) CVA: Yes (12/2019) COPD: No CHF: No Diabetes: Yes GI Disorders: Yes (GERD) HTN: Yes Hypercholesterolemia: Yes - Surgical History Cardiac Surgery: No Neurologic Surgery: No - Immunization History Immunization Up to Date: Yes - Psycho-Social/Smoking History Smoking History: Never smoked Have you smoked in the past 12 months: No If you are a former smoker, when did you quit?: in the 1970s Information on smoking cessation initiated: No - Substance Abuse Hx (Audit-C & DAST Scrn) How often the patient has a drink containing alcohol: Never Score: In Men: 4 or > Positive; In Women: 3 or > Positive: 0 Screen Result (Pos requires Nsg. Audit-10AR): Negative In the last yr the pt used illegal drug/Rx for NonMed reason: No Score: Yes response is considered Positive: 0 Screen Result (Positive result requires Nsg. DAST-10): Negative Review of Systems - Review of Systems Constitutional: No: Chills, Fever HEENTM: No: Recent change in vision Respiratory: No: Cough, Shortness of Breath Cardiac (ROS): No: Chest Pain, Edema, Lightheadedness, Palpitations, Syncope ABD/GI: No: Constipated, Diarrhea, Nausea, Vomiting : No: Burning, Dysuria, Discharge Neurological: No: Headache, Numbness, Tingling, Weakness *Physical Exam - Vital Signs Last Vital Signs Temp Pulse Resp BP Pulse Ox 97.7 F 93 H 16 169/85 99 06/03/20 23:58 06/03/20 23:58 06/03/20 23:58 06/03/20 23:58 06/03/20 23:58 - Physical Exam General Appearance: Yes: Nourished, Appropriately Dressed. No: Apparent Distress HEENT: positive: EOMI, JESSICA Neck: positive: Trachea midline Respiratory/Chest: positive: Chest Tender, Lungs Clear, Normal Breath Sounds Cardiovascular: positive: Regular Rhythm, Regular Rate, S1, S2. negative: Edema Gastrointestinal/Abdominal: positive: Soft. negative: Tender Musculoskeletal: positive: Normal Inspection Extremity: positive: Normal Inspection Integumentary: positive: Normal Color, Dry, Warm Neurologic: positive: Fully Oriented, Alert Medical Decision Making - Medical Decision Making 70 year old male with history of DM, CVA s/p recover, and HTN presents with intermittent hiccups over the last 24 hours. He had no other complaints. His hiccups had subsided prior to arrival. The patient is safe to be discharged home and was advised on methods to manage hiccups at home and when to return to the ED. Discharge - Discharge Information Problems reviewed: Yes Clinical Impression/Diagnosis: Hiccups Condition: Stable Disposition: HOME - Admission No - Follow up/Referral Referrals: Tristan Fraire [Primary Care Provider] - - Patient Discharge Instructions Patient Printed Discharge Instructions: DI for Hiccups Additional Instructions: You came into the ED because of intermittent episodes of hiccups over the last day that improved with the use of Baclofen prior to coming to the ED. If hiccups become constant for 2-3 days, return to the ED. At home, you can try sipping ice water, drinking water quickly, or taking baclofen. - Post Discharge Activity
[2020-06-04 01:12] VITALS: BP 157/83; PULSE 84; TEMP 97.8
--- NOTE | 2020-06-04 01:46 | PDOC ---
Attending Attestation - Resident Resident Name: Alexi Mactis - ED Attending Attestation I have performed the following: I have examined & evaluated the patient, The case was reviewed & discussed with the resident, I agree w/resident's findings & plan, Exceptions are as noted - HPI HPI: 06/04/20 01:45 See resident HPI - Physicial Exam PE: 06/04/20 01:45 Agree with documented exam - Medical Decision Making 06/04/20 01:45 Prolonged hiccuping for about a day, resolved prior to exam after pt took Baclofen at home rx baclofen dc Discharge - Discharge Information Problems reviewed: Yes Clinical Impression/Diagnosis: Hiccups Condition: Stable Disposition: HOME - Additional Discharge Information Prescriptions: Baclofen 5 mg PO TID PRN 5 Days #15 tablet PRN Reason: Muscle Spasms - Follow up/Referral Referrals: Tristan Fraire [Primary Care Provider] - - Patient Discharge Instructions Patient Printed Discharge Instructions: DI for Hiccups Additional Instructions: You came into the ED because of intermittent episodes of hiccups over the last day that improved with the use of Baclofen prior to coming to the ED. If hiccups become constant for 2-3 days, return to the ED. At home, you can try sipping ice water, drinking water quickly, or taking baclofen. - Post Discharge Activity
== END 2020-06-04 02:48 | disposition home or self-care (01) ==
LOC: JER 23:51
DX: R06.6 Hiccough (principal)
CPT/HCPCS: 99282-25

== ENCOUNTER 2020-06-28 11:05 | Observation (INO) | payer OTHER ==
[2020-06-28] MEDS ORDERED: ACETAMINOPHEN 1000 MG/100 ML VIAL (NON FORMULARY) IVPB ONE (11:38)
--- NOTE | 2020-06-28 11:55 | PDOC ---
History of Present Illness - General Chief Complaint: Chest Pain Stated Complaint: CHEAST PAIN Time Seen by Provider: 06/28/20 11:27 - History of Present Illness Initial Comments: 06/28/20 11:51 70 yo male with pmh HTN, HLD, DM, Stroke, [place] presents to ED for chest tightness that started at 10 am this morning. Pt explains he was eating reeses pieces and started feeling chest tightness with shortness of breath. Pt explains he has had similar instance in the past when eating peanut butter where he had chest tightness and throat swelling but went away after an hour. Pt explains this is different because no throat closing and the pain has not subsided. Pt explains pain is midsternal, nonradiating, 3/10, that feels like something is stuck in his chest. Pt explains eating toast makes chest pain improve. Pt denies worsening with exertion. Pt denies diaphoresis, nausea, emesis, abdominal pain, throat closure, fevers, rashes, or chills. Pt had prior [place] with no symptoms. PMH: HTN, HLD, DM, Stroke, [place] Meds: PSH: thoracotomy (30 years ago) Allergies: NKA Social: denies smoking drugs and alchol Past History - Medical History Allergies/Adverse Reactions: Allergies Allergy/AdvReac Type Severity Reaction Status Date / Time No Known Allergies Allergy Verified 06/03/20 23:57 Home Medications: Ambulatory Orders Pantoprazole Sodium [Protonix] 40 mg PO DAILY 03/27/15 metFORMIN HCL [Metformin HCl] 500 mg PO BID 05/02/19 Clopidogrel Bisulfate [Plavix -] 75 mg PO DAILY #120 tablet 12/18/19 Amlodipine Besylate [Norvasc -] 10 mg PO DAILY #90 tablet 12/21/19 Losartan Potassium 100 mg PO DAILY #90 tablet 12/21/19 Labetalol HCl [Normodyne -] 100 mg PO BID 01/31/20 Latanoprost 1 drop OU BID 01/31/20 Tamsulosin HCl [Flomax] 0.4 mg PO DAILY 01/31/20 Lidocaine 5% Patch [Lidoderm Patch -] 1 patch TP DAILY #7 patch 06/03/20 Miscellaneous Medical Supply [Glucometer Device] 1 each SQ ASDIR #1 kit 06/03/20 Miscellaneous Medical Supply [Glucometer Test Strips #50] 1 each SQ ASDIR #1 box 06/03/20 Baclofen 5 mg PO TID PRN 5 Days #15 tablet 06/04/20 Anemia: No Cardiac Disorders: Yes ([place]) CVA: Yes (12/2019) COPD: No CHF: No Diabetes: Yes GI Disorders: Yes (GERD) HTN: Yes Hypercholesterolemia: Yes - Surgical History Cardiac Surgery: No Neurologic Surgery: No - Immunization History Immunization Up to Date: Yes - Psycho-Social/Smoking History Smoking History: Never smoked Have you smoked in the past 12 months: No If you are a former smoker, when did you quit?: in the 1970s Information on smoking cessation initiated: No - Substance Abuse Hx (Audit-C & DAST Scrn) In the last yr the pt used illegal drug/Rx for NonMed reason: No Score: Yes response is considered Positive: 0 Screen Result (Positive result requires Nsg. DAST-10): Negative Review of Systems - Review of Systems Comments:: 06/28/20 11:56 GENERAL/CONSTITUTIONAL: No fever or chills. No weakness. HEAD, EYES, EARS, NOSE AND THROAT: No change in vision. No ear pain or discharge. No sore throat. CARDIOVASCULAR: Chest tigntness and shortness of breath. RESPIRATORY: No cough, wheezing, or hemoptysis. GASTROINTESTINAL: No nausea, vomiting, diarrhea or constipation. GENITOURINARY: No dysuria, frequency, or change in urination. MUSCULOSKELETAL: No joint or muscle swelling or pain. No neck or back pain. SKIN: No rash NEUROLOGIC: No headache, vertigo, loss of consciousness, or change in strength/sensation. ALLERGIC/IMMUNOLOGIC: No hives or skin allergy. 06/28/20 11:59 *Physical Exam - Vital Signs Last Vital Signs Temp Pulse Resp BP Pulse Ox 98 F 84 15 158/78 99 06/28/20 11:16 06/28/20 11:16 06/28/20 11:16 06/28/20 11:16 06/28/20 11:16 - Physical Exam 06/28/20 11:57 GENERAL: Awake, alert, and fully oriented, in no acute distress HEAD: No signs of trauma, normocephalic, atraumatic EYES: EOMI, sclera anicteric, conjunctiva clear ENT: Auricles normal inspection, hearing grossly normal, nares patent, oropharynx clear without exudates. Moist mucosa. Malampati score of 4. Enlarged tongue. Uvula midline NECK: Normal ROM, supple, no lymphadenopathy, JVD, or masses LUNGS: No distress, speaks full sentences, clear to auscultation bilaterally HEART: Regular rate and rhythm, normal S1 and S2, no murmurs, rubs or gallops, peripheral pulses normal and equal bilaterally. ABDOMEN: Soft, nontender, normoactive bowel sounds. No guarding, no rebound. No masses EXTREMITIES : Normal inspection, Normal range of motion, no edema. No clubbing or cyanosis. NEUROLOGICAL: Cranial nerves II through XII grossly intact. Normal speech, normal gait, no focal sensorimotor deficits SKIN: Warm, Dry, normal turgor, no rashes or lesions noted Heart Score/ECG Review - ECG Impressions Comment:: 06/28/20 13:48 Normal sinus rhythm at 83 bpm Normal GA,QRS, and QT intervals T wave inversion in I and avL (similar to prior) T wave biphasic in V2 and V3 06/28/20 13:48 ED Treatment Course - LABORATORY CBC & Chemistry Diagram: 06/28/20 12:00 06/28/20 12:00 Medical Decision Making - Medical Decision Making 06/28/20 12:36 70 yo male with pmh of DM, HTN, HLD, [place], stroke presents with chest tightness and SOB that started this morning after eating peanut butter. Will rule out ACS. Will get CXR, ekg, cardiac, cbc, cmp, coags. 06/28/20 15:01 Pt is stable and has no pain. Labs came back with no acute abnormalities. Pt was admitted to [facility]. Discharge - Discharge Information Problems reviewed: Yes Clinical Impression/Diagnosis: Atypical chest pain Condition: Fair - Admission Yes - Follow up/Referral - Patient Discharge Instructions - Post Discharge Activity
[2020-06-28] MEDS ORDERED: ACETAMINOPHEN INJECTION 100 ML IVPB ONE (11:58)
[2020-06-28 12:18] LABS: BASO % 1.1 % (0-2.0); EOS % 4.1 % (0-4.5); HEMATOCRIT 41.6 % (35.4-49); LYMPH % 25.5 % (8-40); MCH 30.3 pg (25.7-33.7); MCHC 33.6 g/dl (32.0-35.9); MEAN CELL VOLUME 90.3 fl (80-96); MEAN PLT VOLUME 7.8 fl (7.5-11.1); MONO % 15.6 % (3.8-10.2); NEUT % 53.7 % (42.8-82.8); PLATELET COUNT 300 K/MM3 (134-434); RBC 4.61 M/mm3 (4.00-5.60); RDW 14.1 % (11.9-15.9); WHITE BLOOD COUNT 5.7 K/mm3 (4.0-10.0)
[2020-06-28 12:25] LABS: INR 0.92 (0.83-1.09); PROTHROMBIN TIME (PATIENT) 10.8 SEC (9.7-13.0)
[2020-06-28 12:27] LABS: ACTIVATED PTT 31.2 SECONDS (25.2-36.5)
[2020-06-28 12:50] LABS: ALBUMIN 3.5 g/dl (3.4-5.0); ALK PHOS 119 U/L (45-117); ANION GAP 7 MMOL/L (8-16); BILIRUBIN,TOTAL 0.3 mg/dL (0.2-1); BLOOD UREA NITROGEN 15.8 mg/dL (7-18); CALCIUM 8.8 mg/dL (8.5-10.1); CHLORIDE 99 mmol/L (98-107); CO2 28 mmol/L (21-32); CREATININE 1.7 mg/dL (0.55-1.3); GLUCOSE,RANDOM 210 mg/dL (74-106); N-TERMINAL BNP 39.6 pg/ml (5-125); SGOT/AST 23 U/L (15-37); SGPT/ALT 45 U/L (13-61); SODIUM 134 mmol/L (136-145)
--- NOTE | 2020-06-28 14:04 | PDOC ---
Attending Attestation - Resident Resident Name: Nitish Stack - ED Attending Attestation I have performed the following: I have examined & evaluated the patient, The case was reviewed & discussed with the resident, I agree w/resident's findings & plan - HPI HPI: 06/28/20 14:02 70 yo male with pmh HTN, HLD, DM, Stroke, [place] presents to ED for chest tightness that started at 10 am this morning. Pt explains he was eating reeses pieces and started feeling chest tightness with shortness of breath. Pt explains he has had similar instance in the past when eating peanut butter where he had chest tightness and throat swelling but went away after an hour. Pt explains this is different because no throat closing and the pain has not subsided. Pt explains pain is midsternal, nonradiating, 3/10, that feels like something is stuck in his chest. Pt explains eating toast makes chest pain improve. Pt denies worsening with exertion. Pt denies diaphoresis, nausea, emesis, abdominal pain, throat closure, fevers, rashes, or chills. - Physicial Exam PE: 06/28/20 14:02 Agree with the resident's HPI and PE as documented in the electronic medical record. NAD, well appearing, EOMI, PERRL, nl conjunctiva, anicteric; airway patent, neck supple. regular rhythm, no respiratory distress. abdomen nontender. PENG x4, no focal neuro deficits. No peripheral edema. normal color for ethnicity, WWP. - Medical Decision Making 06/28/20 14:03 Vital Signs Temp Pulse Resp BP Pulse Ox 98.4 F 73 18 140/74 99 06/28/20 13:13 06/28/20 13:13 06/28/20 13:13 06/28/20 13:13 06/28/20 13:13 DDx chest pain: ACS, coronary vasospasm, NSTEMI, arrhythmia, unstable angina, PE, dissection, PUD, esophageal spasm, GERD, gastritis, costochondritis, pneumonia, pleurisy, pericarditis/myocarditis. dehydration, electrolyte/metabolic derangements. Considered but clinically doubt based on HPI and PE: Low suspicion for pulmonary embolism or dissection. EKG normal sinus rhythm, no interval abnormalities, narrow QRS, ST and T wave segments and morphology normal. unchanged from prior Chest pain HEART score 4 which denotes Moderate risk and probability for ACS, risk of 14-16% of MACE at 4-6 wks Given risk factors including comorbidities, gender, clinical history labs and lytes wnl chronic cr elevation 1.7, unchanged trop initially neg, needs serials. ekg as above chest pain controlled here. Plan for admit observation tele for chest pain workup, possible Stress testing, to r/o ischemia, serial trops and EKG/tele monitoring. ASA administered, pain c ontrolled, discussion with patient and family at bedside, made aware of impression and plan, questions answered. 06/28/20 14:05 06/28/20 14:05 Heart Score/ECG Review - History History: Slightly suspicious - Electrocardiogram EKG: Normal - Age Age: >/= 65 - Risk Factors Risk Factors Heart Score: Yes Hx Hypercholesterolemia, Yes Hx Hypertension, Yes Hx Diabetes Based on the list above the patient has:: >/=3 risk factors or Hx atherosclerotic disease - Troponin Troponin: </= normal limit - Score Heart Score - Total: 4 #1 ECG reviewed & interpreted by me at: 14:00 General ECG Interpretation: Sinus Rhythm, Normal Rate 06/28/20 14:04 EKG normal sinus rhythm, no interval abnormalities, narrow QRS, ST and T wave segments and morphology normal. Nonspecific T wave abnormalities Discharge - Discharge Information Problems reviewed: Yes Clinical Impression/Diagnosis: Atypical chest pain Condition: Fair - Admission Yes - Follow up/Referral - Patient Discharge Instructions - Post Discharge Activity
[2020-06-28] MEDS ORDERED: ASPIRIN 81 MG CHEWABLE TABLETS PO ONE (14:06)
[2020-06-28] MEDS ORDERED: ASPIRIN 81 MG CHEWABLE TABLETS ONE (14:21)
[2020-06-28] MEDS ORDERED: PANTOPRAZOLE 40 MG TABLET ONE (14:50)
--- NOTE | 2020-06-28 14:50 | HP ---
CHIEF COMPLAINT: Chest Pain PCP and Geospatial Technologist: Dr. Fraire HISTORY OF PRESENT ILLNESS: 70yo M with significant history of CAD with CT (no stents), CVA (November 2019; no sig. neurological deficits), Type 2 DM, HTN, HLD who presents today with chest pain which started about 9am this morning. Patient describes pain with mid-sternal gripping pain about 5-6/10 lasting about 2 hours. Pt reports his previous CT was silent and noted to be on incidental ECG findings. Patient with reports having two eggs, sanz, toast, orange juice for breakfast. In addition patient reports having [employer]iel[employer] pieces, and a peanut butter cup with known reaction to peanut butter. Patient reports his pain has subsided at time of exam. His last cardiac workup was performed 3 years prior (most recent deferred due to COVID-19 surge) and he has follow-up with Dr. Fraire later this month. Patient denies any fever/chills, sick contacts, SOB, diaphoresis, jaw claudication, palpitations, back pain, polyuria, dysuria, n/v/d/c. PAST MEDICAL HISTORY: As above PAST SURGICAL HISTORY: None Social History: Smoking: None Alcohol: Denies Drugs: None Lives with . Allergies No Known Allergies Allergy (Verified 06/03/20 23:57) HOME MEDICATIONS: Home Medications Medication Instructions Recorded Pantoprazole Sodium [Protonix] 40 mg PO DAILY 03/27/15 metFORMIN HCL [Metformin HCl] 500 mg PO BID 05/02/19 Clopidogrel Bisulfate [Plavix -] 75 mg PO DAILY #120 tablet 12/18/19 Amlodipine Besylate [Norvasc -] 10 mg PO DAILY #90 tablet 12/21/19 Losartan Potassium 100 mg PO DAILY #90 tablet 12/21/19 Labetalol HCl [Normodyne -] 100 mg PO BID 01/31/20 Latanoprost 1 drop OU BID 01/31/20 Tamsulosin HCl [Flomax] 0.4 mg PO DAILY 01/31/20 Lidocaine 5% Patch [Lidoderm Patch 1 patch TP DAILY #7 patch 06/03/20 -] Miscellaneous Medical Supply 1 each SQ ASDIR #1 kit 06/03/20 [Glucometer Device] Miscellaneous Medical Supply 1 each SQ ASDIR #1 box 06/03/20 [Glucometer Test Strips #50] Baclofen 5 mg PO TID PRN 5 Days #15 tablet 06/04/20 REVIEW OF SYSTEMS As per HPI PHYSICAL EXAMINATION Vital Signs - 24 hr 06/28/20 06/28/20 11:16 13:13 Temperature 98 F 98.4 F Pulse Rate 84 Pulse Rate [ 73 Right Radial] Respiratory 15 18 Rate Blood Pressure 158/78 Blood Pressure 140/74 [Right Arm] O2 Sat by Pulse 99 99 Oximetry (%) GENERAL: NAD, Awake, alert, and fully oriented, in no acute distress. HEENT: NC/AT, EOMI, ASHLEY, no oral mucosal edema, MMM NECK: No JV, no carotid bruits appreciated LUNGS: CTA bilaterally. No wheezes, and no crackles. No accessory muscle use. HEART: RRR, normal S1 and S2 without murmur ABDOMEN: Soft, NT/ND, normoactive bowel sounds, no guarding. EXTREMITIES: 2+ DP pulses, warm, well-perfused. No calf tenderness. No peripheral edema. NEUROLOGICAL: residential therapist II-XII intact. Strength 5/5 in all extremities symetrically. Sensation grossly intact. Normal speech. Gait not observed. PSYCHIATRIC: Cooperative. Good eye contact. Appropriate mood and affect. SKIN: Warm, dry, no rashes or lesions noted Laboratory Results - last 24 hr 06/28/20 06/28/20 06/28/20 12:00 12:00 12:00 WBC 5.7 RBC 4.61 Hgb 14.0 Hct 41.6 MCV 90.3 MCH 30.3 MCHC 33.6 RDW 14.1 Plt Count 300 MPV 7.8 Absolute Neuts (auto) 3.0 Neutrophils % 53.7 Lymphocytes % 25.5 Monocytes % 15.6 H Eosinophils % 4.1 Basophils % 1.1 Nucleated RBC % 0 PT with INR 10.80 INR 0.92 PTT (Actin FS) 31.2 Sodium 134 L Potassium 4.0 Chloride 99 Carbon Dioxide 28 Anion Gap 7 L BUN 15.8 Creatinine 1.7 H Est GFR (CKD-EPI)AfAm 46.33 Est GFR (CKD-EPI)NonAf 39.97 Random Glucose 210 H Calcium 8.8 Total Bilirubin 0.3 AST 23 ALT 45 Alkaline Phosphatase 119 H Creatine Kinase 208 Creatine Kinase Index 0.6 CK-MB (CK-2) 1.4 Troponin I < 0.02 B-Natriuretic Peptide 39.6 Total Protein 7.0 Albumin 3.5 ASSESSMENT/PLAN: Atypical Chest Pain Possible Allergic Reaction History of HTN CAD s/p previous CT Prior CVA without deficits Uncontrolled DM type 2 History of HLD Diabetic Nephropathy --Given patient's risk factors can observe for 24 hrs on telemetry --Repeat troponin for any elevations. --Continue home medications as below: Amlodipine Besylate (Norvasc -) 10 mg PO DAILY [facility] Clopidogrel Bisulfate (Plavix -) 75 mg PO DAILY [facility] Labetalol HCl (Normodyne -) 100 mg PO BID [facility] Metformin HCl (Glucophage -) 500 mg PO BID [facility] Non-Formulary Medication (Losartan Potassium [Losartan Potassium]) 100 mg PO DAILY [facility] Pantoprazole Sodium (Protonix -) 40 mg PO DAILY [facility] Tamsulosin HCl (Flomax -) 0.4 mg PO DAILY [facility] --Patient will need follow-up with Dr. Fraire upon d/c --Monitor for signs of angioedema Telemetry observation Rashard Flores DO - IM Visit type - Medication Review Med list reviewed for High Risk Meds patients 65 and older: Yes - Emergency Visit Emergency Visit: Yes ED Registration Date: 06/28/20 Care time: The patient presented to the Emergency Department on the above date and was hospitalized for further evaluation of their emergent condition. - New Patient This patient is new to me today: Yes Date on this admission: 06/28/20 - Critical Care Critical Care patient: No
[2020-06-28] MEDS: PANTOPRAZOLE 40 MG TABLET PO SCH (14:52)
[2020-06-28] MEDS ORDERED: metFORMIN HCL 500 MG TABLET (FP) ONE (16:31)
[2020-06-28] MEDS: INSULIN SLIDING SCALE (NOVOLOG) 1 VIAL SQ SCH ×2 (16:35→21:58)
[2020-06-28] MEDS: metFORMIN HCL 500 MG TABLET (FP) PO SCH (16:40)
[2020-06-28] MEDS: LABETALOL HCL 100 MG TABLET (FP) PO SCH (21:57)
[2020-06-28 22:56] VITALS: BMI 33.7
[2020-06-29] MEDS: INSULIN SLIDING SCALE (NOVOLOG) 1 VIAL SQ SCH ×2 (06:04→11:59)
[2020-06-29] MEDS: metFORMIN HCL 500 MG TABLET (FP) PO SCH (06:04)
[2020-06-29 07:17] LABS: ANION GAP 6 MMOL/L (8-16); BLOOD UREA NITROGEN 18.8 mg/dL (7-18); CALCIUM 9.2 mg/dL (8.5-10.1); CHLORIDE 103 mmol/L (98-107); CO2 29 mmol/L (21-32); CREATININE 1.6 mg/dL (0.55-1.3); GLUCOSE,RANDOM 189 mg/dL (74-106); POTASSIUM 4.6 mmol/L (3.5-5.1); SODIUM 137 mmol/L (136-145)
[2020-06-29] MEDS ORDERED: TAMSULOSIN HCL 0.4 MG CAP PO SCH (08:30)
[2020-06-29] MEDS: LABETALOL HCL 100 MG TABLET (FP) PO SCH (09:36)
[2020-06-29] MEDS: PANTOPRAZOLE 40 MG TABLET PO SCH (09:36)
[2020-06-29] MEDS ORDERED: LOSARTAN POTASSIUM 50 MG TABLET (FP) PO SCH (10:00)
[2020-06-29] MEDS ORDERED: amLODIPine BESYLATE 10 MG TABLET (FP) PO SCH (10:00)
[2020-06-29] MEDS ORDERED: CLOPIDOGREL BISULFATE 75 MG TABLET (FP) PO SCH (10:00)
--- NOTE | 2020-06-29 10:45 | EKG ---
Test Reason : Blood Pressure : / mmHG Vent. Rate : 083 BPM Atrial Rate : 083 BPM P-R Int : 178 ms QRS Dur : 108 ms QT Int : 380 ms P-R-T Axes : 073 -10 119 degrees QTc Int : 446 ms NORMAL SINUS RHYTHM POSSIBLE LEFT ATRIAL ENLARGEMENT SEPTAL INFARCT , AGE UNDETERMINED ABNORMAL ECG WHEN COMPARED WITH ECG OF 03-FEB-2020 15:50, QUESTIONABLE CHANGE IN QRS DURATION SEPTAL INFARCT IS NOW PRESENT Confirmed by Enoc Rosenthal ([id number]) on 06/29/2020 10:45:12 AM Referred By: Confirmed By:Enoc Rosenthal
[2020-06-29 10:57] VITALS: BP 154/89; PULSE 88; TEMP 97.8
[2020-06-29] MEDS ORDERED: LATANOPROST 0.005% OPHTH SOLN 2.5ML BOTTLE OU SCH (11:30)
--- NOTE | 2020-06-29 12:30 | CON.CARD ---
Cardiology Consult (text) - Consultation Consultation Note: cc: chest pain hpi: 70 m hx htn, ckd, dm, mi hld, CVA 11/2019 here with chest pain. Started morning on day of admission, was eating a large breakfast and then had reeses pieces and peanut butter cups and M and Ms. Ferron a pain in center of chest and upper abdomen, felt like food got stuck and then went down but then felt burning up his chest afterwards. He has had prior reactions to peanut butter, ?peanut allergy although has been eating reeses for the last few months regularly. Now chest pain free. no dyspnea, palps, dizziness. Feels at baseline. pmh: per hpi psh: none social: no tob fam: no premature cad,scd ros: per hpi; all others nl meds: Home Medications Medication Instructions Recorded Pantoprazole Sodium [Protonix] 40 mg PO DAILY 03/27/15 metFORMIN HCL [Metformin HCl] 500 mg PO BID 05/02/19 Clopidogrel Bisulfate [Plavix -] 75 mg PO DAILY #120 tablet 12/18/19 Amlodipine Besylate [Norvasc -] 10 mg PO DAILY #90 tablet 12/21/19 Losartan Potassium 100 mg PO DAILY #90 tablet 12/21/19 Labetalol HCl [Normodyne -] 100 mg PO BID 01/31/20 Latanoprost 1 drop OU BID 01/31/20 Tamsulosin HCl [Flomax] 0.4 mg PO DAILY 01/31/20 Lidocaine 5% Patch [Lidoderm Patch 1 patch TP DAILY #7 patch 06/03/20 -] Miscellaneous Medical Supply 1 each SQ ASDIR #1 kit 06/03/20 [Glucometer Device] Miscellaneous Medical Supply 1 each SQ ASDIR #1 box 06/03/20 [Glucometer Test Strips #50] Baclofen 5 mg PO TID PRN 5 Days #15 tablet 06/04/20 pe: Vital Signs Period Temp Pulse Resp BP Sys/Oneal Pulse Ox Last 24 Hr 97.8 F-98.8 F 68-88 18-20 130-154/74-89 97-99 nad no jvd rrr s1s2 no mrg cta bl nl eff aao3 no le e/c/c abd nt nd pos bs no jaundice diaphoresis pos dp pt no carotid bruits Laboratory Last Values WBC 5.7 K/mm3 (4.0-10.0) 06/28/20 12:00 RBC 4.61 M/mm3 (4.00-5.60) 06/28/20 12:00 Hgb 14.0 GM/dL (11.7-16.9) 06/28/20 12:00 Hct 41.6 % (35.4-49) 06/28/20 12:00 MCV 90.3 fl (80-96) 06/28/20 12:00 MCH 30.3 pg (25.7-33.7) 06/28/20 12:00 MCHC 33.6 g/dl (32.0-35.9) 06/28/20 12:00 RDW 14.1 % (11.9-15.9) 06/28/20 12:00 Plt Count 300 K/MM3 (134-434) 06/28/20 12:00 MPV 7.8 fl (7.5-11.1) 06/28/20 12:00 Absolute Neuts (auto) 3.0 K/mm3 (1.5-8.0) 06/28/20 12:00 Neutrophils % 53.7 % (42.8-82.8) 06/28/20 12:00 Lymphocytes % 25.5 % (8-40) 06/28/20 12:00 Monocytes % 15.6 % (3.8-10.2) H 06/28/20 12:00 Eosinophils % 4.1 % (0-4.5) 06/28/20 12:00 Basophils % 1.1 % (0-2.0) 06/28/20 12:00 Nucleated RBC % 0 % (0-0) 06/28/20 12:00 PT with INR 10.80 SEC (9.7-13.0) 06/28/20 12:00 INR 0.92 (0.83-1.09) 06/28/20 12:00 PTT (Actin FS) 31.2 SECONDS (25.2-36.5) 06/28/20 12:00 Sodium 137 mmol/L (136-145) 06/29/20 05:40 Potassium 4.6 mmol/L (3.5-5.1) 06/29/20 05:40 Chloride 103 mmol/L (98-107) 06/29/20 05:40 Carbon Dioxide 29 mmol/L (21-32) 06/29/20 05:40 Anion Gap 6 MMOL/L (8-16) L 06/29/20 05:40 BUN 18.8 mg/dL (7-18) H 06/29/20 05:40 Creatinine 1.6 mg/dL (0.55-1.3) H 06/29/20 05:40 Est GFR (CKD-EPI)AfAm 49.85 06/29/20 05:40 Est GFR (CKD-EPI)NonAf 43.01 06/29/20 05:40 POC Glucometer 177 UNITS (80-120) 06/29/20 11:57 Random Glucose 189 mg/dL (74-106) H 06/29/20 05:40 Hemoglobin A1c % 8.8 % (4.2-6.3) H 06/29/20 05:40 Calcium 9.2 mg/dL (8.5-10.1) 06/29/20 05:40 Total Bilirubin 0.3 mg/dL (0.2-1) 06/28/20 12:00 AST 23 U/L (15-37) 06/28/20 12:00 ALT 45 U/L (13-61) 06/28/20 12:00 Alkaline Phosphatase 119 U/L (45-117) H 06/28/20 12:00 Creatine Kinase 208 U/L (26-308) 06/28/20 12:00 Creatine Kinase Index 0.6 % (0.0-5.0) 06/28/20 12:00 CK-MB (CK-2) 1.4 ng/mL (0.5-3.6) 06/28/20 12:00 Troponin I < 0.02 ng/ml (0.00-0.05) 06/29/20 05:40 B-Natriuretic Peptide 39.6 pg/ml (5-125) 06/28/20 12:00 Total Protein 7.0 g/dl (6.4-8.2) 06/28/20 12:00 Albumin 3.5 g/dl (3.4-5.0) 06/28/20 12:00 COVID-19 ([facility]) Not detected (Not Detected) 06/28/20 15:35 echo 11/2019: nl lv/rv, no sig valve path ecg: sr, nl intervals, lat twis (old, seen on 2017 ecg as well), no st changes cxr: clear lungs tele: sinus carotids 11/2019: no sig stenosis a/p: 70 m hx htn, ckd, dm, mi hld, here with chest pain chest pain - trop neg x 2, EKG similar to prior - tele unremarkable - unlikely ACS - now resolved - may be GI etiology - outpatient follow up, will consider outpatient stress testing given risk factors htn: -cont coreg, norvasc ckd: -cr near baseline mi: -pt reports he was told he had silent mi 20+ yrs ago. No signs acs. No anginal sxs. Echo with nl lvef. Cont statin, plavix, bb. hld: -cont statin CVA - cont statin, plavix
--- NOTE | 2020-06-29 13:05 | DS ---
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 neurological deficits), Type 2 DM, HTN, HLD who presents to [facility] with chest pain which started about 9am yesterday. Patient described pain with mid-sternal gripping pain about 5-6/10 lasting about 2 hours. Pt reports his previous RI was silent and noted to be on incidental ECG findings. Patient with reports having two eggs, sanz, toast, orange juice for breakfast. In addition patient reports having Nathaniel's pieces, and a peanut butter cup with known reaction to peanut butter. Patient reports his pain has subsided at time of exam. His last cardiac workup was performed 3 years prior (most recent deferred due to COVID-19 surge) and he has follow-up with Dr. Fraire later this month. Patient denies any fever/chills, sick contacts, SOB, diaphoresis, jaw claudication, palpitations, back pain, polyuria, dysuria, n/v/d/c. Vital Signs Period Temp Pulse Resp BP Sys/Oneal Pulse Ox Last 24 Hr 97.8 F-98.8 F 68-88 18-20 130-154/74-89 97-99 PHYSICAL EXAM GENERAL: NAD, Awake, alert, and fully oriented, in no acute distress. HEENT: NC/AT, EOMI, ASHLEY, no oral mucosal edema NECK: No JV, no carotid bruits appreciated LUNGS: CTA bilaterally. No wheezes, and no crackles. No accessory muscle use. HEART: RRR, normal S1 and S2 without murmur ABDOMEN: Soft, NT/ND, normoactive bowel sounds, no guarding. EXTREMITIES: 2+ DP pulses, warm, well-perfused. No calf tenderness. No peripheral edema. 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 Strength 5/5 in all extremities symmetrically. Sensation grossly intact. Normal speech. Gait not observed. PSYCHIATRIC: Cooperative. Good eye contact. Appropriate mood and affect. SKIN: Warm, dry, no rashes or lesions noted LABS Laboratory Results - last 24 hr 06/28/20 06/28/20 06/28/20 12:00 15:35 16:18 Sodium Potassium Chloride Carbon Dioxide Anion Gap BUN Creatinine Est GFR (CKD-EPI)AfAm Est GFR (CKD-EPI)NonAf POC Glucometer 283 Random Glucose Hemoglobin A1c % Calcium Creatine Kinase Index 0.6 CK-MB (CK-2) 1.4 Troponin I COVID-19 ([facility]) Not detected 06/28/20 06/28/20 06/29/20 21:25 21:51 05:32 Sodium Potassium Chloride Carbon Dioxide Anion Gap BUN Creatinine Est GFR (CKD-EPI)AfAm Est GFR (CKD-EPI)NonAf POC Glucometer 215 179 Random Glucose Hemoglobin A1c % Calcium Creatine Kinase Index CK-MB (CK-2) Troponin I < 0.02 COVID-19 ([facility]UAN) 06/29/20 06/29/20 06/29/20 05:40 05:40 11:57 Sodium 137 Potassium 4.6 Chloride 103 Carbon Dioxide 29 Anion Gap 6 L BUN 18.8 H Creatinine 1.6 H Est GFR (CKD-EPI)AfAm 49.85 Est GFR (CKD-EPI)NonAf 43.01 POC Glucometer 177 Random Glucose 189 H Hemoglobin A1c % 8.8 H Calcium 9.2 Creatine Kinase Index CK-MB (CK-2) Troponin I < 0.02 COVID-19 ([facility]UAN) HOSPITAL COURSE: Date of Admission:06/28/20 Date of Discharge: 06/29/20 Cardiology: chest pain, resolved trops negative x 2 ekg with no acute changes from previous no events on tele patient agrees to outpatient follow up with PCP/metal leaf layer for a stress test cont coreg, norvasc cleared by cardiology for discharge home CKD creatinine near baseline Hx of RI Patient reports hx of silent RI 20 yrs ago. echo with normal LV funcion on statin therapy, plavix, beta blockers disposition: cleared by cardiology for d/c home with outpatient followup Minutes to complete discharge: 60 Discharge Summary Problems reviewed: Yes Reason For Visit: ATYPICAL CHEST PAIN Current Active Problems Atypical chest pain (Acute) Condition: Improved - Instructions Diet, Activity, Other Instructions: Mr. Lutz: You were admitted to [facility] on 06/28[facility]2020 for chest pain. Your cardiac workup was negative and we will be sending you home today. During your stay, you were evaluated by a metal leaf layer. HERE ARE OUR DISCHARGE INSTRUCTIONS: Chest pain Cardiac workup was normal. You will need to call Dr Bey (metal leaf layer) office for a cardiac stress test. --------- FOLLOW UPS: Please follow up with your primary care doctor for a post hospital visit. Please call Dr. Bey office (phone number in discharge packet) and make a follow up appointment for a stress test. PLEASE note your blood sugars were slightly higher than you were on last visit. Controlling diabetes is important with a history of stroke. We have referred you to an endocrinolgist (Dr. Early). Please call his office for a follow up. Thank you. Referrals: Panda Bey MD [Staff Physician] - Tristan Fraire [Primary Care Provider] - Lb Flores MD [Staff Physician] - Disposition: HOME - Home Medications Comprehensive Discharge Medication List: Ambulatory Orders Pantoprazole Sodium [Protonix] 40 mg PO DAILY 03/27/15 metFORMIN HCL [Metformin HCl] 500 mg PO BID 05/02/19 Clopidogrel Bisulfate [Plavix -] 75 mg PO DAILY #120 tablet 12/18/19 Amlodipine Besylate [Norvasc -] 10 mg PO DAILY #90 tablet 12/21/19 Losartan Potassium 100 mg PO DAILY #90 tablet 12/21/19 Labetalol HCl [Normodyne -] 100 mg PO BID 01/31/20 Latanoprost 1 drop OU BID 01/31/20 Tamsulosin HCl [Flomax] 0.4 mg PO DAILY 01/31/20 Lidocaine 5% Patch [Lidoderm -] 1 patch TP DAILY #7 patch 06/03/20 Miscellaneous Medical Supply [Glucometer Device] 1 each SQ ASDIR #1 kit 06/03/20 Baclofen 5 mg PO TID PRN 5 Days #15 tablet 06/04/20 This patient is new to me today: Yes Date on this admission: 07/09/20 Emergency Visit: Yes ED Registration Date: 06/28/20 Care time: The patient presented to the Emergency Department on the above date and was hospitalized for further evaluation of their emergent condition. Critical Care patient: No - Discharge Referral Referred to [facility] Med [facility].: No
== END 2020-06-29 13:46 | disposition home or self-care (01) ==
LOC: JER 11:05 → JERBED 13:50 → UNDOADMOB 13:50 → INTOOBSV 13:50 → JERBED 14:32 → J4W 20:59
PROVIDERS: ADMIT Internal Medicine; ATTEND Nurse Practitioner Family
PROC: 3E033NZ Introduction of Analgesics, Hypnotics, Sedatives into Peripheral Vein, Percutaneous Approach (ICD-10-PCS; principal; 2020-06-28)
PROC: 3E033GC Introduction of Other Therapeutic Substance into Peripheral Vein, Percutaneous Approach (ICD-10-PCS; 2020-06-28)
PROC: 3E013VG Introduction of Insulin into Subcutaneous Tissue, Percutaneous Approach (ICD-10-PCS; 2020-06-28)
DX: R07.89 Other chest pain (principal); E66.9 Obesity, unspecified; Z68.33 Body mass index [BMI] 33.0-33.9, adult; R10.10 Upper abdominal pain, unspecified; E11.9 Type 2 diabetes mellitus without complications; I10 Essential (primary) hypertension; E78.5 Hyperlipidemia, unspecified; Z86.73 Personal history of transient ischemic attack (TIA), and cerebral infarction without residual deficits; I25.2 Old myocardial infarction; I25.10 Atherosclerotic heart disease of native coronary artery without angina pectoris
CPT/HCPCS: 36415; 71045-TC-FY; 80048; 80053; 82550; 82553; 82962; 83036; 83880; 84484; 85025; 85610; 85730; 93005; 93010; 96372; 96374; 96375; 99285-25; G0378; J0131; U0003

== ENCOUNTER 2021-07-12 11:40 | Emergency (ER) | payer OTHER ==
[2021-07-12 12:00] VITALS: BP 144/79; PULSE 90; TEMP 99.4; BMI 33.8
[2021-07-12] MEDS ORDERED: BACLOFEN 10 MG TABLET (FP) PO ONE (13:21)
[2021-07-12] MEDS ORDERED: BACLOFEN 10 MG TABLET (FP) ONE (13:26)
[2021-07-12 14:10] LABS: HEMATOCRIT 43.7 % (35.4-49); HEMOGLOBIN 15.1 GM/dL (11.7-16.9); LYMPH % 20.1 % (8-40); MCH 30.6 pg (25.7-33.7); MCHC 34.6 g/dl (32.0-35.9); MEAN CELL VOLUME 88.4 fl (80-96); MEAN PLT VOLUME 7.7 fl (7.5-11.1); MONO % 13.5 % (3.8-10.2); NEUT % 63.4 % (42.8-82.8); PLATELET COUNT 337 10^3/uL (134-434); RBC 4.94 M/mm3 (4.00-5.60); RDW 13.6 % (11.9-15.9); WHITE BLOOD COUNT 10.7 K/mm3 (4.0-10.0)
[2021-07-12 14:13] LABS: CHLORIDE 99 mmol/L (98-107); SODIUM 134 mmol/L (136-145)
[2021-07-12 14:15] LABS: CALCIUM 8.9 mg/dL (8.5-10.1)
[2021-07-12 14:16] LABS: ALBUMIN 3.6 g/dl (3.4-5.0); ANION GAP 10 MMOL/L (8-16); BLOOD UREA NITROGEN 26.1 mg/dL (7-18); CO2 25 mmol/L (21-32); MAGNESIUM 2.2 mg/dL (1.8-2.4)
[2021-07-12 14:17] LABS: GLUCOSE,RANDOM 216 mg/dL (74-106)
[2021-07-12 14:19] LABS: SGOT/AST 15 U/L (15-37); SGPT/ALT 42 U/L (13-61)
[2021-07-12 14:20] LABS: PHOSPHOROUS 3.5 mg/dL (2.5-4.9)
[2021-07-12 14:21] LABS: BILIRUBIN,TOTAL 0.7 mg/dL (0.2-1); TOT PROT 7.8 g/dl (6.4-8.2)
[2021-07-12 14:22] LABS: ALK PHOS 121 U/L (45-117)
== END 2021-07-12 15:22 | disposition home or self-care (01) ==
LOC: JER 11:40
DX: R06.6 Hiccough (principal)
CPT/HCPCS: 36415; 71046-TC-FY; 80053; 82550; 82553; 83735; 84100; 84484; 85025; 93005; 93010; 99285-25; J0475

== ENCOUNTER 2022-04-04 17:51 | Emergency (ER) | payer OTHER ==
[2022-04-04 18:02] VITALS: BP 153/84; PULSE 83; TEMP 98.7; BMI 33.0
== END 2022-04-04 20:20 | disposition home or self-care (01) ==
LOC: JER 17:51 → JERFT 17:51
DX: K04.7 Periapical abscess without sinus (principal)
CPT/HCPCS: 99283-25

== ENCOUNTER 2022-06-23 18:04 | Emergency (ER) | payer OTHER ==
[2022-06-23 18:20] VITALS: BP 144/74; PULSE 78; RESP 16; TEMP 97.8; BMI 33.3
== END 2022-06-23 19:28 | disposition home or self-care (01) ==
LOC: JERFT 18:04
DX: K08.89 Other specified disorders of teeth and supporting structures (principal)
CPT/HCPCS: 99281-25

== ENCOUNTER 2022-12-06 21:55 | Emergency (ER) | payer OTHER ==
[2022-12-06 22:05] VITALS: BP 137/65; PULSE 90; RESP 18; TEMP 98.6; BMI 34.4
== END 2022-12-07 01:18 | disposition home or self-care (01) ==
LOC: JER 21:55
DX: J32.9 Chronic sinusitis, unspecified (principal); L03.211 Cellulitis of face
CPT/HCPCS: 0241U-QW; 70486-TC; 99284-25

== ENCOUNTER 2024-03-05 09:02 | Inpatient (IN) | payer OTHER ==
[2024-03-05 09:29] VITALS: BMI 33.7
[2024-03-05 10:25] LABS: BASO % 1.2 % (0-2.0); EOS % 5.1 % (0-4.5); HEMATOCRIT 43.6 % (35.4-49); HEMOGLOBIN 14.8 GM/dL (11.7-16.9); LYMPH % 23.2 % (8-40); MCH 30.8 pg (25.7-33.7); MCHC 34.1 g/dl (32.0-35.9); MEAN CELL VOLUME 90.4 fl (80-96); MONO % 11.9 % (3.8-10.2); NEUT % 58.6 % (42.8-82.8); PLATELET COUNT 300 10^3/uL (134-434); RBC 4.82 M/mm3 (4.00-5.60); RDW 14.1 % (11.9-15.9); WHITE BLOOD COUNT 5.8 K/mm3 (4.0-10.0)
[2024-03-05 10:31] LABS: PROTHROMBIN TIME (PATIENT) 11.6 SEC (9.7-13.0)
[2024-03-05 10:42] LABS: POTASSIUM 4.1 mmol/L (3.5-5.1)
[2024-03-05 10:46] LABS: BLOOD UREA NITROGEN 23.2 mg/dL (7-18); CALCIUM 9.7 mg/dL (8.5-10.1)
[2024-03-05 10:47] LABS: ALBUMIN 3.3 g/dl (3.4-5.0)
[2024-03-05 10:51] LABS: BILIRUBIN,TOTAL 0.4 mg/dL (0.2-1)
[2024-03-05] MEDS: SODIUM CHLORIDE 1,000 ML IV SCH (19:56)
[2024-03-05] MEDS: LABETALOL HCL 100 MG TABLET (FP) PO SCH (21:21)
[2024-03-06] MEDS: amLODIPine BESYLATE 5 MG TABLET (FP) PO ONE (04:35)
[2024-03-06 07:20] LABS: HEMATOCRIT 42.1 % (35.4-49); HEMOGLOBIN 14.5 GM/dL (11.7-16.9); MCH 31.2 pg (25.7-33.7); MCHC 34.5 g/dl (32.0-35.9); MEAN CELL VOLUME 90.4 fl (80-96); MEAN PLT VOLUME 8.2 fl (7.5-11.1); PLATELET COUNT 307 10^3/uL (134-434); RBC 4.66 M/mm3 (4.00-5.60); RDW 13.9 % (11.9-15.9)
[2024-03-06 07:44] LABS: CALCIUM 9.2 mg/dL (8.5-10.1)
[2024-03-06 07:45] LABS: ALBUMIN 3.3 g/dl (3.4-5.0); BLOOD UREA NITROGEN 19.4 mg/dL (7-18); MAGNESIUM 2.1 mg/dL (1.8-2.4)
[2024-03-06 07:48] LABS: CREATININE 1.6 mg/dL (0.55-1.3); PHOSPHOROUS 3.3 mg/dL (2.5-4.9)
[2024-03-06 07:49] LABS: BILIRUBIN,TOTAL 0.8 mg/dL (0.2-1); TOT PROT 6.7 g/dl (6.4-8.2)
[2024-03-06] MEDS: TAMSULOSIN HCL 0.4 MG CAP PO SCH (09:56)
[2024-03-06] MEDS: amLODIPine BESYLATE 10 MG TABLET (FP) PO SCH (09:56)
[2024-03-06] MEDS: CLOPIDOGREL BISULFATE 75 MG TABLET (FP) PO SCH (09:56)
[2024-03-06] MEDS: PANTOPRAZOLE 40 MG TABLET PO SCH (09:56)
[2024-03-06] MEDS: HEPARIN NA (PORCINE) 5,000 UNITS/ML 1ML VIAL SQ SCH (21:23)
[2024-03-07 07:18] LABS: BASO % 0.7 % (0-2.0); EOS % 3.1 % (0-4.5); HEMATOCRIT 43.9 % (35.4-49); HEMOGLOBIN 15.2 GM/dL (11.7-16.9); LYMPH % 25.3 % (8-40); MCH 31.4 pg (25.7-33.7); MCHC 34.6 g/dl (32.0-35.9); MEAN CELL VOLUME 90.9 fl (80-96); MEAN PLT VOLUME 8.3 fl (7.5-11.1); MONO % 11.7 % (3.8-10.2); NEUT % 59.2 % (42.8-82.8); PLATELET COUNT 316 10^3/uL (134-434); RBC 4.83 M/mm3 (4.00-5.60); RDW 13.9 % (11.9-15.9)
[2024-03-07 07:36] LABS: ALBUMIN 3.2 g/dl (3.4-5.0); CALCIUM 9.2 mg/dL (8.5-10.1); MAGNESIUM 2.4 mg/dL (1.8-2.4)
[2024-03-07 07:37] LABS: BLOOD UREA NITROGEN 21.8 mg/dL (7-18)
[2024-03-07 07:39] LABS: CREATININE 1.6 mg/dL (0.55-1.3); PHOSPHOROUS 3.7 mg/dL (2.5-4.9)
[2024-03-07 07:41] LABS: BILIRUBIN,TOTAL 0.7 mg/dL (0.2-1); TOT PROT 6.8 g/dl (6.4-8.2)
[2024-03-08 06:40] LABS: BASO % 0.9 % (0-2.0); EOS % 4.3 % (0-4.5); HEMATOCRIT 43.3 % (35.4-49); LYMPH % 24.3 % (8-40); MCH 31.2 pg (25.7-33.7); MCHC 34.6 g/dl (32.0-35.9); MEAN CELL VOLUME 90.2 fl (80-96); MEAN PLT VOLUME 8.2 fl (7.5-11.1); MONO % 12.1 % (3.8-10.2); NEUT % 58.4 % (42.8-82.8); PLATELET COUNT 313 10^3/uL (134-434); RDW 13.9 % (11.9-15.9); WHITE BLOOD COUNT 5.8 K/mm3 (4.0-10.0)
[2024-03-08 06:47] LABS: INR 1.01 (0.83-1.09); PROTHROMBIN TIME (PATIENT) 11.7 SEC (9.7-13.0)
[2024-03-08 06:50] LABS: ACTIVATED PTT 33.6 SECONDS (25.2-36.5)
[2024-03-08 07:13] LABS: BLOOD UREA NITROGEN 23.2 mg/dL (7-18); CALCIUM 9.3 mg/dL (8.5-10.1); MAGNESIUM 2.2 mg/dL (1.8-2.4)
[2024-03-08 07:14] LABS: ALBUMIN 3.3 g/dl (3.4-5.0)
[2024-03-08 07:17] LABS: CREATININE 1.6 mg/dL (0.55-1.3); PHOSPHOROUS 3.6 mg/dL (2.5-4.9)
[2024-03-08 07:18] LABS: BILIRUBIN,TOTAL 0.5 mg/dL (0.2-1); TOT PROT 6.9 g/dl (6.4-8.2)
[2024-03-08] MEDS: LOSARTAN POTASSIUM 50 MG TABLET PO SCH (09:31)
[2024-03-08] MEDS: levETIRAcetam 500 MG TABLET (FP) PO SCH (09:31)
[2024-03-08] MEDS ORDERED: POLYETHYLENE GLYCOL (HEALTHYLAX) 3350 17 GM PACKET PO PRN (09:31)
[2024-03-08] MEDS: LABETALOL HCL 100 MG TABLET (FP) PO SCH ×2 (09:32→21:56)
[2024-03-08 09:36] LABS: EPI CELLS 2 /uL (0-25.1); HYALINE CASTS 0 /uL (0-3.1); URINE APPEARANCE CLEAR; URINE BACTERIA 2 /uL (0-1359); URINE BILIRUBIN NEGATIVE (NEGATIVE); URINE COLOR YELLOW; URINE GLUCOSE (UA) NEGATIVE (NEGATIVE); URINE KETONE NEGATIVE (NEGATIVE); URINE LEUK ESTERASE NEGATIVE (NEGATIVE); URINE NITRITE NEGATIVE (NEGATIVE); URINE PROTEIN 2+ (NEGATIVE); URINE RBC 5 /uL (0-23.9); URINE UROBILINOGEN 0.2 mg/dL (0.2-1.0); URINE WBC 1 /uL (0-25.8)
[2024-03-08] MEDS ORDERED: POLYETHYLENE GLYCOL (HEALTHYLAX) 3350 17 GM PACKET PO SCH (09:45)
[2024-03-08] MEDS: POLYETHYLENE GLYCOL (HEALTHYLAX) 3350 17 GM PACKET PO ONE (09:57)
[2024-03-08] MEDS: DOCUSATE SODIUM 100 MG CAPSULE (FP) PO PRN (09:58)
[2024-03-08] MEDS: HYDROCHLOROTHIAZIDE 25 MG TABLET (FP) PO ONE (17:13)
[2024-03-08] MEDS: INSULIN ASPART SLIDING SCALE (NOVOLOG) 1 VIAL SQ SCH (17:16)
[2024-03-08] MEDS: HEPARIN NA (PORCINE) 5,000 UNITS/ML 1ML VIAL SQ SCH (21:56)
[2024-03-09 07:35] LABS: HEMATOCRIT 43.7 % (35.4-49); HEMOGLOBIN 15.3 GM/dL (11.7-16.9); MCH 31.7 pg (25.7-33.7); MCHC 35.1 g/dl (32.0-35.9); MEAN CELL VOLUME 90.4 fl (80-96); MEAN PLT VOLUME 8.5 fl (7.5-11.1); PLATELET COUNT 314 10^3/uL (134-434); RBC 4.83 M/mm3 (4.00-5.60); RDW 13.8 % (11.9-15.9); WHITE BLOOD COUNT 6.1 K/mm3 (4.0-10.0)
[2024-03-09 08:13] LABS: POTASSIUM 4.2 mmol/L (3.5-5.1)
[2024-03-09 08:20] LABS: CALCIUM 9.3 mg/dL (8.5-10.1)
[2024-03-09 08:21] LABS: BLOOD UREA NITROGEN 24.5 mg/dL (7-18)
[2024-03-09 08:24] LABS: CREATININE 1.6 mg/dL (0.55-1.3)
[2024-03-09] MEDS: LOSARTAN 50MG/HCTZ 12.5MG 1 TAB PO SCH (09:14)
[2024-03-09] MEDS: ROSUVASTATIN CA 20 MG TABLET PO SCH (21:17)
[2024-03-10 21:52] LABS: EPI CELLS 1 /uL (0-25.1); HYALINE CASTS 0 /uL (0-3.1); PH,URINE 5.5 (5.0-8.0); URINE APPEARANCE CLEAR; URINE BACTERIA >9,000 /uL (0-1359); URINE BILIRUBIN NEGATIVE (NEGATIVE); URINE COLOR YELLOW; URINE GLUCOSE (UA) NEGATIVE (NEGATIVE); URINE KETONE NEGATIVE (NEGATIVE); URINE LEUK ESTERASE NEGATIVE (NEGATIVE); URINE NITRITE NEGATIVE (NEGATIVE); URINE PROTEIN 2+ (NEGATIVE); URINE RBC 13 /uL (0-23.9); URINE UROBILINOGEN 0.2 mg/dL (0.2-1.0); URINE WBC 4 /uL (0-25.8)
[2024-03-11 07:45] LABS: EOS % 4.9 % (0-4.5); HEMATOCRIT 44.4 % (35.4-49); HEMOGLOBIN 15.5 GM/dL (11.7-16.9); LYMPH % 19.9 % (8-40); MCH 31.9 pg (25.7-33.7); MCHC 34.9 g/dl (32.0-35.9); MEAN CELL VOLUME 91.5 fl (80-96); MEAN PLT VOLUME 8.4 fl (7.5-11.1); MONO % 11.8 % (3.8-10.2); NEUT % 62.4 % (42.8-82.8); PLATELET COUNT 343 10^3/uL (134-434); RBC 4.86 M/mm3 (4.00-5.60); WHITE BLOOD COUNT 7.1 K/mm3 (4.0-10.0)
[2024-03-11 07:56] LABS: POTASSIUM 4.1 mmol/L (3.5-5.1)
[2024-03-11 08:07] LABS: ALBUMIN 3.5 g/dl (3.4-5.0); BLOOD UREA NITROGEN 31.8 mg/dL (7-18); MAGNESIUM 2.4 mg/dL (1.8-2.4)
[2024-03-11 08:10] LABS: BILIRUBIN,TOTAL 0.5 mg/dL (0.2-1); CREATININE 1.9 mg/dL (0.55-1.3); TOT PROT 7.5 g/dl (6.4-8.2)
[2024-03-11] MEDS: LABETALOL HCL 100 MG TABLET (FP) PO SCH (13:43)
[2024-03-11] MEDS: SODIUM CHLORIDE 500 ML IV STA (13:43)
[2024-03-11] MEDS: TAMSULOSIN HCL 0.4 MG CAP PO SCH (21:17)
[2024-03-11] MEDS: levETIRAcetam 250 MG TABLET PO SCH (21:17)
[2024-03-12 08:28] LABS: BASO % 0.5 % (0-2.0); HEMATOCRIT 41.9 % (35.4-49); HEMOGLOBIN 14.8 GM/dL (11.7-16.9); LYMPH % 16.1 % (8-40); MCH 31.8 pg (25.7-33.7); MCHC 35.4 g/dl (32.0-35.9); MEAN CELL VOLUME 89.8 fl (80-96); MEAN PLT VOLUME 8.5 fl (7.5-11.1); MONO % 10.8 % (3.8-10.2); NEUT % 69.6 % (42.8-82.8); PLATELET COUNT 327 10^3/uL (134-434); RBC 4.67 M/mm3 (4.00-5.60); RDW 14.2 % (11.9-15.9); WHITE BLOOD COUNT 6.6 K/mm3 (4.0-10.0)
[2024-03-12 08:38] LABS: POTASSIUM 4.2 mmol/L (3.5-5.1)
[2024-03-12 08:40] LABS: CALCIUM 9.4 mg/dL (8.5-10.1)
[2024-03-12 08:41] LABS: ALBUMIN 3.3 g/dl (3.4-5.0); BLOOD UREA NITROGEN 31.5 mg/dL (7-18); MAGNESIUM 2.4 mg/dL (1.8-2.4)
[2024-03-12 08:44] LABS: CREATININE 1.7 mg/dL (0.55-1.3); PHOSPHOROUS 3.8 mg/dL (2.5-4.9)
[2024-03-12 08:45] LABS: BILIRUBIN,TOTAL 0.6 mg/dL (0.2-1); TOT PROT 6.9 g/dl (6.4-8.2)
[2024-03-12] MEDS ORDERED: DOCUSATE SODIUM 100 MG CAPSULE (FP) PO PRN (08:50)
[2024-03-12] MEDS ORDERED: POLYETHYLENE GLYCOL (HEALTHYLAX) 3350 17 GM PACKET PO PRN (08:50)
[2024-03-12] MEDS: LABETALOL HCL 200 MG TABLET (FP) PO ONE (09:57)
[2024-03-12] MEDS: PANTOPRAZOLE 40 MG TABLET PO SCH (09:57)
[2024-03-12] MEDS: CLOPIDOGREL BISULFATE 75 MG TABLET (FP) PO SCH (09:57)
[2024-03-12] MEDS ORDERED: amLODIPine BESYLATE 10 MG TABLET (FP) PO SCH (10:00)
[2024-03-12] MEDS ORDERED: LABETALOL HCL 200 MG TABLET (FP) PO SCH ×2 (10:00→22:00)
[2024-03-12] MEDS ORDERED: levETIRAcetam 500 MG TABLET (FP) PO SCH (10:26)
[2024-03-12] MEDS: levETIRAcetam 500 MG/5 ML INJECTION VIAL IVPB ONE (12:17)
[2024-03-12] MEDS: INSULIN ASPART SLIDING SCALE (NOVOLOG) 1 VIAL SQ SCH ×2 (12:17→21:41)
[2024-03-12] MEDS: amLODIPine BESYLATE 10 MG TABLET (FP) PO SCH (12:21)
[2024-03-12] MEDS: LABETALOL HCL 200 MG TABLET (FP) PO SCH ×2 (13:45→21:25)
[2024-03-12] MEDS ORDERED: LABETALOL HCL 100 MG TABLET (FP) PO SCH (14:00)
[2024-03-12] MEDS: HEPARIN NA (PORCINE) 5,000 UNITS/ML 1ML VIAL SQ SCH ×2 (15:15→21:25)
[2024-03-12] MEDS ORDERED: INSULIN (NOVOLOG) ASPART 100 UNITS/ML 10ML VIAL ONE (16:32)
[2024-03-12] MEDS: levETIRAcetam 500 MG TABLET (FP) PO SCH (21:25)
[2024-03-12] MEDS: ROSUVASTATIN CA 20 MG TABLET PO SCH (21:25)
[2024-03-12] MEDS: TAMSULOSIN HCL 0.4 MG CAP PO SCH (21:25)
[2024-03-12] MEDS ORDERED: ROSUVASTATIN CA 20 MG TABLET PO SCH (22:00)
[2024-03-12] MEDS: ACETAMINOPHEN 325 MG TABLET (FP) PO PRN (22:06)
[2024-03-13 06:33] LABS: BASO % 0.8 % (0-2.0); EOS % 4.3 % (0-4.5); HEMATOCRIT 41.2 % (35.4-49); HEMOGLOBIN 14.1 GM/dL (11.7-16.9); LYMPH % 19.5 % (8-40); MCH 31.2 pg (25.7-33.7); MCHC 34.3 g/dl (32.0-35.9); MEAN CELL VOLUME 91.1 fl (80-96); MEAN PLT VOLUME 8.3 fl (7.5-11.1); NEUT % 59.4 % (42.8-82.8); PLATELET COUNT 304 10^3/uL (134-434); RBC 4.52 M/mm3 (4.00-5.60); WHITE BLOOD COUNT 7.1 K/mm3 (4.0-10.0)
[2024-03-13 06:55] LABS: CALCIUM 9.4 mg/dL (8.5-10.1)
[2024-03-13 06:56] LABS: BLOOD UREA NITROGEN 35.6 mg/dL (7-18); MAGNESIUM 2.5 mg/dL (1.8-2.4)
[2024-03-13 06:59] LABS: CREATININE 1.8 mg/dL (0.55-1.3)
[2024-03-13] MEDS: PANTOPRAZOLE 40 MG TABLET PO SCH (09:05)
[2024-03-13] MEDS: CLOPIDOGREL BISULFATE 75 MG TABLET (FP) PO SCH (09:05)
[2024-03-13] MEDS: amLODIPine BESYLATE 10 MG TABLET (FP) PO SCH (09:05)
[2024-03-13] MEDS: DOCUSATE SODIUM 100 MG CAPSULE (FP) PO PRN (09:56)
[2024-03-13] MEDS: POLYETHYLENE GLYCOL (HEALTHYLAX) 3350 17 GM PACKET PO PRN (09:56)
[2024-03-13] MEDS: POLYETHYLENE GLYCOL (HEALTHYLAX) 3350 17 GM PACKET PO SCH (10:50)
[2024-03-13] MEDS: LORazepam 0.5 MG TABLET PO SCH (21:26)
[2024-03-14 07:30] LABS: EOS % 6.3 % (0-4.5); HEMATOCRIT 42.2 % (35.4-49); LYMPH % 25.4 % (8-40); MCH 32.1 pg (25.7-33.7); MCHC 35.4 g/dl (32.0-35.9); MEAN CELL VOLUME 90.6 fl (80-96); MEAN PLT VOLUME 8.3 fl (7.5-11.1); MONO % 13.4 % (3.8-10.2); NEUT % 53.9 % (42.8-82.8); PLATELET COUNT 317 10^3/uL (134-434); RBC 4.66 M/mm3 (4.00-5.60)
[2024-03-14 07:43] LABS: POTASSIUM 4.2 mmol/L (3.5-5.1)
[2024-03-14 07:49] LABS: BLOOD UREA NITROGEN 31.3 mg/dL (7-18)
[2024-03-14 07:50] LABS: CALCIUM 9.6 mg/dL (8.5-10.1)
[2024-03-14 07:52] LABS: CREATININE 1.7 mg/dL (0.55-1.3)
[2024-03-14] MEDS: hydrALAZINE HCL 25 MG TABLET (FP) PO ONE (11:01)
[2024-03-14] MEDS: hydrALAZINE HCL 25 MG TABLET (FP) PO SCH (14:12)
[2024-03-15 07:28] LABS: BASO % 0.8 % (0-2.0); EOS % 5.5 % (0-4.5); HEMATOCRIT 42.5 % (35.4-49); HEMOGLOBIN 14.7 GM/dL (11.7-16.9); LYMPH % 22.7 % (8-40); MCH 31.7 pg (25.7-33.7); MCHC 34.6 g/dl (32.0-35.9); MEAN CELL VOLUME 91.5 fl (80-96); MEAN PLT VOLUME 8.1 fl (7.5-11.1); MONO % 13.3 % (3.8-10.2); NEUT % 57.7 % (42.8-82.8); PLATELET COUNT 316 10^3/uL (134-434); RBC 4.64 M/mm3 (4.00-5.60); RDW 14.1 % (11.9-15.9); WHITE BLOOD COUNT 5.9 K/mm3 (4.0-10.0)
[2024-03-15 07:41] LABS: POTASSIUM 4.5 mmol/L (3.5-5.1)
[2024-03-15 07:44] LABS: BLOOD UREA NITROGEN 27.1 mg/dL (7-18); CALCIUM 9.7 mg/dL (8.5-10.1)
[2024-03-15 07:48] LABS: CREATININE 1.6 mg/dL (0.55-1.3)
[2024-03-15] MEDS: CARBAMIDE PEROXIDE 6.5% OTIC 15 ML BOTTLE AU SCH (22:02)
[2024-03-16 07:56] LABS: BASO % 1.2 % (0-2.0); EOS % 4.9 % (0-4.5); HEMATOCRIT 42.6 % (35.4-49); HEMOGLOBIN 14.6 GM/dL (11.7-16.9); LYMPH % 19.2 % (8-40); MCH 31.5 pg (25.7-33.7); MCHC 34.3 g/dl (32.0-35.9); MEAN CELL VOLUME 91.7 fl (80-96); MEAN PLT VOLUME 8.1 fl (7.5-11.1); MONO % 12.5 % (3.8-10.2); NEUT % 62.2 % (42.8-82.8); PLATELET COUNT 310 10^3/uL (134-434); RBC 4.65 M/mm3 (4.00-5.60); RDW 14.2 % (11.9-15.9); WHITE BLOOD COUNT 6.5 K/mm3 (4.0-10.0)
[2024-03-16 08:03] LABS: POTASSIUM 4.3 mmol/L (3.5-5.1)
[2024-03-16 08:06] LABS: CALCIUM 9.3 mg/dL (8.5-10.1)
[2024-03-16 08:09] LABS: CREATININE 1.6 mg/dL (0.55-1.3)
[2024-03-17 07:36] LABS: EOS % 6.1 % (0-4.5); HEMATOCRIT 42.9 % (35.4-49); LYMPH % 21.9 % (8-40); MEAN CELL VOLUME 91.4 fl (80-96); MEAN PLT VOLUME 8.2 fl (7.5-11.1); MONO % 11.7 % (3.8-10.2); NEUT % 59.3 % (42.8-82.8); PLATELET COUNT 316 10^3/uL (134-434); RBC 4.69 M/mm3 (4.00-5.60); RDW 14.2 % (11.9-15.9); WHITE BLOOD COUNT 5.8 K/mm3 (4.0-10.0)
[2024-03-17 08:06] LABS: POTASSIUM 4.7 mmol/L (3.5-5.1)
[2024-03-17 08:08] LABS: ALBUMIN 3.2 g/dl (3.4-5.0); BLOOD UREA NITROGEN 23.1 mg/dL (7-18); CALCIUM 9.5 mg/dL (8.5-10.1); MAGNESIUM 2.2 mg/dL (1.8-2.4)
[2024-03-17 08:10] LABS: CREATININE 1.7 mg/dL (0.55-1.3); PHOSPHOROUS 3.1 mg/dL (2.5-4.9)
[2024-03-17 08:13] LABS: BILIRUBIN,TOTAL 0.4 mg/dL (0.2-1); TOT PROT 6.8 g/dl (6.4-8.2)
[2024-03-17 09:05] VITALS: TEMP 98.3
[2024-03-17] MEDS: MECLIZINE HCL 12.5 MG TABLET PO PRN (09:24)
[2024-03-17 11:17] VITALS: BP 139/78; PULSE 72; RESP 13
== END 2024-03-17 11:18 | disposition home or self-care (01) | DRG 101 ==
LOC: JER 09:02 → JERBED 11:49 → J2W 12:38 → OBSVTOIN 03-07 16:02 → J7W 03-12 01:57 → J2W 03-12 17:11
PROVIDERS: ADMIT Internal Medicine; ATTEND Internal Medicine
DX: G40.909 Epilepsy, unspecified, not intractable, without status epilepticus (principal); E87.1 Hypo-osmolality and hyponatremia; I25.10 Atherosclerotic heart disease of native coronary artery without angina pectoris; E78.5 Hyperlipidemia, unspecified; G93.89 Other specified disorders of brain; I95.1 Orthostatic hypotension; I12.9 Hypertensive chronic kidney disease with stage 1 through stage 4 chronic kidney disease, or unspecified chronic kidney disease; N18.30 Chronic kidney disease, stage 3 unspecified; E11.22 Type 2 diabetes mellitus with diabetic chronic kidney disease; F41.9 Anxiety disorder, unspecified; K59.00 Constipation, unspecified; I25.2 Old myocardial infarction; I49.3 Ventricular premature depolarization; Z86.73 Personal history of transient ischemic attack (TIA), and cerebral infarction without residual deficits
CPT/HCPCS: 36415; 70450-TC; 70551-TC; 71045-TC-FY; 72100-TC-FY; 76775-TC; 80048; 80053; 81003; 82962; 83735; 84100; 84484; 85025; 85027; 85610; 85730; 87635; 93005; 93010; 93880-TC; 97116-GP; 97162-GP; 99285-25; G0378; J1644

== ENCOUNTER 2024-04-14 16:42 | Emergency (ER) | payer OTHER ==
[2024-04-14 17:03] VITALS: BP 145/66; PULSE 71; RESP 18; TEMP 98; BMI 31.5
== END 2024-04-14 17:44 | disposition home or self-care (01) ==
LOC: JERFT 16:42
DX: Z76.0 Encounter for issue of repeat prescription (principal); R56.9 Unspecified convulsions
CPT/HCPCS: 99283-25

== ENCOUNTER 2024-06-12 01:42 | Emergency (ER) | payer OTHER ==
[2024-06-12 01:51] VITALS: BP 158/82; PULSE 76; RESP 16; TEMP 98.4; BMI 33.0
[2024-06-12] MEDS ORDERED: AMOX TR/POT CLAV 875MG/125MG TABLETS (FP) ONE (02:53)
[2024-06-12] MEDS: AMOX TR/POT CLAV 875MG/125MG TABLETS (FP) PO ONE (02:54)
== END 2024-06-12 02:57 | disposition home or self-care (01) ==
LOC: JER 01:42
DX: K04.7 Periapical abscess without sinus (principal); R68.81 Early satiety
CPT/HCPCS: 99283-25